=== PATIENT | female | born 1945 | race African-American/Black ===

== ENCOUNTER 2016-12-12 04:45 | Inpatient (IN) | payer MEDICARE, MEDICAID ==
[~2016-12-12] VITALS: Ht 160 cm; Wt 114.8 kg
[~2016-12-12 04:45] MED LIST: ALBU6.7H INH; ALPR0.5T6 PO; AMBR5TAB3 PO; BENA20TA3 PO; BRIM.2 BOTHEYE; BRIM10DR2 BOTHEYE; FERR-63 PO; FLUT1DIS3 INH; FURO-151 PO; INSASP; INSU100I19 SUBCUT; IPRA3AMP INH; LEVO100T9 PO; MECL-109 PO; MONT10TA21 PO; OMEP40CA34 PO; PRAV20TA57 PO; SPIR25TA4 PO; TIMO15DR12 BOTHEYE
[2016-12-12] MEDS ORDERED: ONDANSETRON HCL 4MG/2ML VIAL IV STA (04:56)
[2016-12-12] MEDS ORDERED: MORPHINE SULFATE 4 MG/ML CPJ (NOT FOR IM USE) IV STA (04:56)
[2016-12-12] MEDS ORDERED: IPRATROPIUM BROMIDE (0.02%) 0.5MG/2.5ML NEB HHN STA (04:56)
[2016-12-12] MEDS ORDERED: METHYLPREDNISOLONE SOD SUCC 125 MG/2 ML VIAL IV STA (04:56)
[2016-12-12] MEDS ORDERED: ALBUTEROL (0.083%) 2.5MG/3ML NEB HHN STA (04:56)
[2016-12-12] MEDS ORDERED: ACYCLOVIR INJ 400 MG in DEXT 5% WATER 100 ML IV ONE (05:00)
[2016-12-12] MEDS ORDERED: NITROGLYCERIN OINT 1GM/INCH UDPKT TD ONE (05:00)
[2016-12-12] MEDS ORDERED: ASPIRIN 81MG TABLET PO ONE (05:00)
[2016-12-12] MEDS ORDERED: MAGNESIUM 2 G PREMIX 50 ML IV ONE (05:00)
[2016-12-12 05:24] LABS: BG BASE EXCESS 4.5 mmol/L (-2.0-2.0); BG CARBOXYHEMOGLOBIN 0.3 % (0.5-1.5); BG DEOXYHEMOGLOBIN 7.9 % (0.0-5.0); BG FRACTION INSPIRED OXYGEN 36; BG HCO3 ACT 30.8 mmol/L (22.0-26.0); BG METHEMOGLOBIN 0.4 % (0.0-1.5); BG OXYHEMOGLOBIN 91.4 % (94.0-97.0); BG PH 7.366 (7.350-7.450); BG PO2 65.4 mmHg (75.0-100.0); BG SAMPLE SITE LEFT RADIAL; BG VENT MODE NASAL CANNULA
[2016-12-12 05:30] LABS: BASOPHILS % 0.2 % (0.0-2.0); EOSINOPHILS % 0.3 % (0.0-5.0); HEMATOCRIT. 28.5 % (36.0-48.0); HEMOGLOBIN. 9.1 g/dL (12.0-16.0); LYMPHOCYTES % 7.1 % (20.0-50.0); MEAN CORPUSCULAR HEMOGLOBIN 27.7 pg (28.0-32.0); MEAN PLATELET VOLUME 8.2 fl (7.4-10.4); MONOCYTES % 10.6 % (2.0-8.0); NEUTROPHILS % 81.8 % (40.0-76.0); PLATELET 230 x1000/uL (130-400); RED BLOOD CELL COUNT 3.28 mill/uL (4.2-5.4); RED CELL DISTRIBUTION WIDTH 15.7 % (11.6-14.6)
[2016-12-12] MEDS ORDERED: FUROSEMIDE 40MG/4ML VIAL IVP NR (05:30)
[2016-12-12 05:53] LABS: CARBON DIOXIDE 32 mEq/L (21-32); CHLORIDE 102 mEq/L (98-107); ETHANOL BLOOD < 10 mg/dL; TROPONIN I 0.07 ng/mL (0.00-0.04)
[2016-12-12 06:16] LABS: DIGOXIN 0.1 ng/mL (0.9-2.0)
[2016-12-12 06:22] LABS: D-DIMER 0.33 mg/L FEU (<0.50); PARTIAL THROMBOPLASTIN TIME 26.1 sec (24.0-34.0); PROTHROMBIN TIME 10.9 sec
[2016-12-12 08:30] VITALS: BP 103/60
[2016-12-12 09:18] VITALS: BP 103/63
[2016-12-12] MEDS ORDERED: ONDANSETRON HCL 4MG/2ML VIAL IV PRN (10:00)
[2016-12-12] MEDS ORDERED: GUAIFENESIN 200MG/10ML SUGAR FREE UDC PO PRN (10:00)
[2016-12-12] MEDS: BENAZEPRIL 20MG TABLET PO SCH (10:00)
[2016-12-12] MEDS ORDERED: CLONIDINE 0.1MG TABLET PO PRN (10:00)
[2016-12-12] MEDS ORDERED: IPRATROPIUM/ALBUTEROL 0.5-3(2.5)MG/3ML NEB HHN SCH (10:00)
[2016-12-12] MEDS ORDERED: ACETAMINOPHEN 325MG TABLET PO PRN (10:00)
[2016-12-12] MEDS ORDERED: DEXTROSE 50% WATER 50ML SYRINGE IV PRN (10:15)
[2016-12-12] MEDS: OMEPRAZOLE 20MG CAPSULE EXTENDED RELEASE PO SCH (11:10)
[2016-12-12] MEDS: FERROUS SULFATE 325MG TABLET PO SCH (11:10)
[2016-12-12] MEDS: CITALOPRAM HYDROBROMIDE 10MG TABLET PO SCH (11:10)
[2016-12-12] MEDS: APIXABAN 5 MG TABLET PO SCH ×2 (11:10→20:46)
[2016-12-12] MEDS: LEVOTHYROXINE SODIUM 100MCG TABLET PO SCH (11:10)
[2016-12-12] MEDS: SPIRONOLACTONE 25MG TABLET PO SCH (11:10)
[2016-12-12] MEDS: INSULIN DETEMIR UD 100 UNITS/ML SYR SUBCUT SCH (11:12)
[2016-12-12] MEDS: FUROSEMIDE 40MG/4ML VIAL IVP SCH (11:35)
[2016-12-12] MEDS: TIMOLOL MALEATE 0.5% OPHTH DROPS 5ML EACHEYE SCH (11:36)
[2016-12-12] MEDS: LIDOCAINE 5% PATCH TOP SCH (11:36)
[2016-12-12] MEDS: CEFTRIAXONE 1 G PREMIX 50 ML IV SCH (11:36)
[2016-12-12] MEDS: HYDROMORPHONE HCL/PF 2MG/ML CPJ IV PRN (11:37)
[2016-12-12] MEDS: BLOOD SUGAR DIAGNOSTIC STRIP TEST SCH ×3 (11:37→20:48)
[2016-12-12] MEDS: BRIMONIDINE 0.2% OPHTH DROPS 5ML BOTHEYE SCH (11:37)
[2016-12-12] MEDS: IPRATROPIUM/ALBUTEROL 0.5-3(2.5)MG/3ML NEB HHN SCH ×4 (11:52→23:45)
[2016-12-12 12:00] VITALS: BP 113/48
[2016-12-12] MEDS: INSULIN LISPRO 100 UNITS/ML SUBCUT SCH ×3 (12:15→20:47)
[2016-12-12] MEDS ORDERED: ALBUTEROL 6.7GM HFA INHALER INH SCH (13:00)
[2016-12-12] MEDS ORDERED: NON FORMULARY PATIENT HOME MED EA XX SCH (14:30)
[2016-12-12 14:43] LABS: TROPONIN I 0.06 ng/mL (0.00-0.04)
[2016-12-12] MEDS: LETAIRIS (AMBRISENTAN) 10MG TABLET PO SCH (16:13)
[2016-12-12 16:19] VITALS: BP 102/47
[2016-12-12 20:00] VITALS: BP 98/67
[2016-12-12] MEDS: MONTELUKAST SODIUM 10MG TABLET PO SCH (20:47)
[2016-12-12] MEDS ORDERED: ZOLPIDEM TARTRATE 5MG TABLET PO PRN (21:00)
[2016-12-13] VITALS: BP 140/67
[2016-12-13] MEDS: HYDROMORPHONE HCL/PF 2MG/ML CPJ IV PRN ×5 (00:08→19:44)
[2016-12-13] MEDS: IPRATROPIUM/ALBUTEROL 0.5-3(2.5)MG/3ML NEB HHN SCH ×5 (03:33→21:02)
[2016-12-13 04:00] VITALS: BP 105/71
[2016-12-13] MEDS: BLOOD SUGAR DIAGNOSTIC STRIP TEST SCH ×4 (06:24→21:13)
[2016-12-13] MEDS: OMEPRAZOLE 20MG CAPSULE EXTENDED RELEASE PO SCH (06:24)
[2016-12-13] MEDS: LEVOTHYROXINE SODIUM 100MCG TABLET PO SCH (06:24)
[2016-12-13] MEDS: INSULIN LISPRO 100 UNITS/ML SUBCUT SCH ×4 (06:46→21:00)
[2016-12-13 06:49] LABS: HEMATOCRIT. 26.2 % (36.0-48.0); HEMOGLOBIN. 8.2 g/dL (12.0-16.0); MEAN CORPUSCULAR HEMOGLOBIN 27.7 pg (28.0-32.0); MEAN CORPUSCULAR VOLUME 88.4 fL (81.0-99.0); MEAN PLATELET VOLUME 8.6 fl (7.4-10.4); PLATELET 222 x1000/uL (130-400); RED BLOOD CELL COUNT 2.97 mill/uL (4.2-5.4); RED CELL DISTRIBUTION WIDTH 15.8 % (11.6-14.6)
[2016-12-13 08:00] VITALS: BP 113/72
[2016-12-13] MEDS: BRIMONIDINE 0.2% OPHTH DROPS 5ML BOTHEYE SCH (08:36)
[2016-12-13] MEDS: TIMOLOL MALEATE 0.5% OPHTH DROPS 5ML EACHEYE SCH (08:37)
[2016-12-13] MEDS: SPIRONOLACTONE 25MG TABLET PO SCH (08:37)
[2016-12-13] MEDS: BENAZEPRIL 20MG TABLET PO SCH (08:38)
[2016-12-13] MEDS: FERROUS SULFATE 325MG TABLET PO SCH (08:38)
[2016-12-13] MEDS: LETAIRIS (AMBRISENTAN) 10MG TABLET PO SCH (08:40)
[2016-12-13] MEDS: FUROSEMIDE 40MG/4ML VIAL IVP SCH (08:41)
[2016-12-13] MEDS: LIDOCAINE 5% PATCH TOP SCH (08:53)
[2016-12-13] MEDS: APIXABAN 5 MG TABLET PO SCH ×2 (08:54→21:00)
[2016-12-13] MEDS ORDERED: NON FORMULARY PATIENT HOME MED EA PO SCH (09:00)
[2016-12-13] MEDS ORDERED: MEDICATION NOT ON FORMULARY EA (Ambrisentan (Letairis) 5 MG) PO SCH (09:00)
[2016-12-13 09:03] LABS: PLATELET ESTIMATE NORMAL
[2016-12-13] MEDS: CITALOPRAM HYDROBROMIDE 10MG TABLET PO SCH (09:13)
[2016-12-13 09:21] LABS: TOTAL IRON BINDING CAPACITY 356 ug/dL (250-450)
[2016-12-13] MEDS: INSULIN DETEMIR UD 100 UNITS/ML SYR SUBCUT SCH (09:42)
[2016-12-13] MEDS: CEFTRIAXONE 1 G PREMIX 50 ML IV SCH (11:48)
[2016-12-13 12:00] VITALS: BP 110/61
[2016-12-13 16:00] VITALS: BP 102/63
[2016-12-13 20:00] VITALS: BP 124/64
[2016-12-13] MEDS: MONTELUKAST SODIUM 10MG TABLET PO SCH (21:33)
[2016-12-14] VITALS: BP 117/89
[2016-12-14] MEDS: HYDROMORPHONE HCL/PF 2MG/ML CPJ IV PRN ×6 (00:15→21:56)
[2016-12-14] MEDS: IPRATROPIUM/ALBUTEROL 0.5-3(2.5)MG/3ML NEB HHN SCH ×6 (00:43→21:19)
[2016-12-14 04:00] VITALS: BP 107/61
[2016-12-14 06:10] LABS: BASOPHILS % 0.4 % (0.0-2.0); EOSINOPHILS % 0.5 % (0.0-5.0); HEMATOCRIT. 27.6 % (36.0-48.0); HEMOGLOBIN. 8.6 g/dL (12.0-16.0); LYMPHOCYTES % 12.5 % (20.0-50.0); MEAN CORPUSCULAR HEMOGLOBIN 27.6 pg (28.0-32.0); MEAN CORPUSCULAR VOLUME 88.3 fL (81.0-99.0); MEAN PLATELET VOLUME 8.6 fl (7.4-10.4); MONOCYTES % 8.8 % (2.0-8.0); NEUTROPHILS % 77.8 % (40.0-76.0); PLATELET 255 x1000/uL (130-400); RED BLOOD CELL COUNT 3.12 mill/uL (4.2-5.4); RED CELL DISTRIBUTION WIDTH 16.1 % (11.6-14.6)
[2016-12-14] MEDS: BLOOD SUGAR DIAGNOSTIC STRIP TEST SCH ×4 (06:23→20:50)
[2016-12-14] MEDS: INSULIN LISPRO 100 UNITS/ML SUBCUT SCH ×4 (06:24→20:51)
[2016-12-14] MEDS: LEVOTHYROXINE SODIUM 100MCG TABLET PO SCH (06:44)
[2016-12-14] MEDS: OMEPRAZOLE 20MG CAPSULE EXTENDED RELEASE PO SCH (06:44)
[2016-12-14 08:00] VITALS: BP 126/50
[2016-12-14] MEDS: FERROUS SULFATE 325MG TABLET PO SCH (08:48)
[2016-12-14] MEDS: SPIRONOLACTONE 25MG TABLET PO SCH (08:48)
[2016-12-14] MEDS: BENAZEPRIL 20MG TABLET PO SCH (08:49)
[2016-12-14] MEDS: CITALOPRAM HYDROBROMIDE 10MG TABLET PO SCH (08:49)
[2016-12-14] MEDS: LETAIRIS (AMBRISENTAN) 10MG TABLET PO SCH (08:51)
[2016-12-14] MEDS: TIMOLOL MALEATE 0.5% OPHTH DROPS 5ML EACHEYE SCH (08:51)
[2016-12-14] MEDS: BRIMONIDINE 0.2% OPHTH DROPS 5ML BOTHEYE SCH (08:51)
[2016-12-14] MEDS: FUROSEMIDE 20MG/2ML VIAL IVP SCH (08:52)
[2016-12-14] MEDS: APIXABAN 5 MG TABLET PO SCH ×2 (08:52→21:21)
[2016-12-14] MEDS: LIDOCAINE 5% PATCH TOP SCH (08:53)
[2016-12-14] MEDS ORDERED: NITROGLYCERIN 0.4MG TABLET SL SL SCH (09:00)
[2016-12-14] MEDS ORDERED: NITROGLYCERIN 0.4MG TABLET SL SL PRN (09:00)
[2016-12-14] MEDS ORDERED: MAGNESIUM/ALUMINUM HYDROXIDE/SIMETHICONE 30ML UDC PO PRN (09:00)
[2016-12-14] MEDS: INSULIN DETEMIR UD 100 UNITS/ML SYR SUBCUT SCH (09:19)
[2016-12-14] MEDS: CEFTRIAXONE 1 G PREMIX 50 ML IV SCH (11:33)
[2016-12-14 12:00] VITALS: BP 106/41
[2016-12-14 15:48] VITALS: BP 115/59
[2016-12-14 20:00] VITALS: BP 117/67
[2016-12-14] MEDS: MONTELUKAST SODIUM 10MG TABLET PO SCH (21:21)
[2016-12-15] VITALS: BP_SYST 133; BP_SYST 137; BP_DIAS 71; BP_DIAS 80
[2016-12-15] MEDS: IPRATROPIUM/ALBUTEROL 0.5-3(2.5)MG/3ML NEB HHN SCH ×6 (00:26→21:04)
[2016-12-15 04:00] VITALS: BP 154/92
[2016-12-15] MEDS: INSULIN LISPRO 100 UNITS/ML SUBCUT SCH ×4 (06:27→21:00)
[2016-12-15] MEDS: BLOOD SUGAR DIAGNOSTIC STRIP TEST SCH ×4 (06:27→21:44)
[2016-12-15] MEDS: LEVOTHYROXINE SODIUM 100MCG TABLET PO SCH (06:44)
[2016-12-15 08:30] VITALS: BP 154/86
[2016-12-15] MEDS: LIDOCAINE 5% PATCH TOP SCH (09:08)
[2016-12-15] MEDS: SPIRONOLACTONE 25MG TABLET PO SCH (09:20)
[2016-12-15] MEDS: FAMOTIDINE 20MG TABLET PO SCH (09:20)
[2016-12-15] MEDS: BENAZEPRIL 20MG TABLET PO SCH (09:20)
[2016-12-15] MEDS: FERROUS SULFATE 325MG TABLET PO SCH (09:21)
[2016-12-15] MEDS: APIXABAN 5 MG TABLET PO SCH ×2 (09:21→21:38)
[2016-12-15] MEDS: LETAIRIS (AMBRISENTAN) 10MG TABLET PO SCH (09:21)
[2016-12-15] MEDS: TIMOLOL MALEATE 0.5% OPHTH DROPS 5ML EACHEYE SCH (09:22)
[2016-12-15] MEDS: BRIMONIDINE 0.2% OPHTH DROPS 5ML BOTHEYE SCH (09:22)
[2016-12-15] MEDS ORDERED: HYDROMORPHONE HCL/PF 2MG/ML CPJ IM PRN ×2 (11:15→11:30)
[2016-12-15 11:23] LABS: BASOPHILS % 0.6 % (0.0-2.0); EOSINOPHILS % 0.6 % (0.0-5.0); HEMATOCRIT. 30.5 % (36.0-48.0); HEMOGLOBIN. 9.6 g/dL (12.0-16.0); MEAN CORPUSCULAR HEMOGLOBIN 27.2 pg (28.0-32.0); MEAN CORPUSCULAR VOLUME 86.4 fL (81.0-99.0); MEAN PLATELET VOLUME 7.9 fl (7.4-10.4); MONOCYTES % 8.6 % (2.0-8.0); NEUTROPHILS % 80.2 % (40.0-76.0); PLATELET 305 x1000/uL (130-400); RED BLOOD CELL COUNT 3.53 mill/uL (4.2-5.4); RED CELL DISTRIBUTION WIDTH 15.9 % (11.6-14.6)
[2016-12-15] MEDS: CITALOPRAM HYDROBROMIDE 10MG TABLET PO SCH (11:40)
[2016-12-15] MEDS: INSULIN DETEMIR UD 100 UNITS/ML SYR SUBCUT SCH (11:56)
[2016-12-15 11:58] LABS: CARBON DIOXIDE 32 mEq/L (21-32); CHLORIDE 101 mEq/L (98-107)
[2016-12-15 12:15] VITALS: BP 165/99
[2016-12-15] MEDS: HYDROMORPHONE HCL/PF 2MG/ML CPJ IV PRN ×3 (15:09→23:27)
[2016-12-15] MEDS: FUROSEMIDE 20MG/2ML VIAL IVP SCH (15:11)
[2016-12-15] MEDS: CEFTRIAXONE 1 G PREMIX 50 ML IV SCH (15:12)
[2016-12-15 16:15] VITALS: BP 141/76
[2016-12-15 20:00] VITALS: BP 127/73
[2016-12-15] MEDS ORDERED: SORBITOL 70% SOLN 30ML PO NR (21:00)
[2016-12-15] MEDS: MONTELUKAST SODIUM 10MG TABLET PO SCH (21:38)
[2016-12-16] VITALS: BP 133/77
[2016-12-16] MEDS: IPRATROPIUM/ALBUTEROL 0.5-3(2.5)MG/3ML NEB HHN SCH ×5 (01:14→20:53)
[2016-12-16 04:00] VITALS: BP 137/74
[2016-12-16] MEDS ORDERED: SORBITOL 70% SOLN 30ML PO NR (06:00)
[2016-12-16] MEDS: HYDROMORPHONE HCL/PF 2MG/ML CPJ IV PRN ×3 (06:10→21:02)
[2016-12-16] MEDS: LEVOTHYROXINE SODIUM 100MCG TABLET PO SCH (06:11)
[2016-12-16] MEDS: BLOOD SUGAR DIAGNOSTIC STRIP TEST SCH ×4 (06:11→21:04)
[2016-12-16] MEDS: INSULIN LISPRO 100 UNITS/ML SUBCUT SCH ×4 (06:19→21:00)
[2016-12-16 08:00] VITALS: BP 132/66
[2016-12-16] MEDS ORDERED: NA PHOS,M-B/NA PHOS,DI-BA ENEMA 118ML PR NR (09:00)
[2016-12-16] MEDS: APIXABAN 5 MG TABLET PO SCH ×2 (09:00→21:04)
[2016-12-16] MEDS: CITALOPRAM HYDROBROMIDE 10MG TABLET PO SCH (09:00)
[2016-12-16] MEDS: FAMOTIDINE 20MG TABLET PO SCH (09:00)
[2016-12-16] MEDS: FERROUS SULFATE 325MG TABLET PO SCH (09:00)
[2016-12-16] MEDS: LETAIRIS (AMBRISENTAN) 10MG TABLET PO SCH (09:00)
[2016-12-16] MEDS: BENAZEPRIL 20MG TABLET PO SCH (09:00)
[2016-12-16] MEDS: SPIRONOLACTONE 25MG TABLET PO SCH (09:00)
[2016-12-16] MEDS: LIDOCAINE 5% PATCH TOP SCH (09:49)
[2016-12-16] MEDS: BRIMONIDINE 0.2% OPHTH DROPS 5ML BOTHEYE SCH (09:50)
[2016-12-16] MEDS: FUROSEMIDE 20MG/2ML VIAL IVP SCH (09:50)
[2016-12-16] MEDS: TIMOLOL MALEATE 0.5% OPHTH DROPS 5ML EACHEYE SCH (09:50)
[2016-12-16] MEDS: INSULIN DETEMIR UD 100 UNITS/ML SYR SUBCUT SCH (10:00)
[2016-12-16 12:05] VITALS: BP 124/56
[2016-12-16] MEDS: CEFTRIAXONE 1 G PREMIX 50 ML IV SCH (12:07)
[2016-12-16] MEDS ORDERED: SIMETHICONE 40 MG/0.6 ML 30ML ONE ×2 (13:13→16:57)
[2016-12-16] MEDS ORDERED: SODIUM CHLORIDE 0.9% 10ML VIAL ONE (13:13)
[2016-12-16] MEDS ORDERED: MIDAZOLAM HCL 5 MG/5 ML VIAL IV PRN (16:57)
[2016-12-16] MEDS ORDERED: MIDAZOLAM HCL 5 MG/5 ML VIAL ONE (16:57)
[2016-12-16] MEDS ORDERED: FENTANYL CITRATE/PF 50MCG/ML 2ML VIAL ONE (16:57)
[2016-12-16] MEDS ORDERED: FENTANYL CITRATE/PF 50MCG/ML 2ML VIAL IV PRN (16:59)
[2016-12-16 20:00] VITALS: BP 133/68
[2016-12-16] MEDS: MONTELUKAST SODIUM 10MG TABLET PO SCH (21:04)
[2016-12-17] VITALS: BP 143/91
[2016-12-17] MEDS: IPRATROPIUM/ALBUTEROL 0.5-3(2.5)MG/3ML NEB HHN SCH ×4 (00:23→11:50)
[2016-12-17 04:00] VITALS: BP 147/95
[2016-12-17] MEDS: LEVOTHYROXINE SODIUM 100MCG TABLET PO SCH (06:04)
[2016-12-17] MEDS: BLOOD SUGAR DIAGNOSTIC STRIP TEST SCH ×2 (06:04→11:45)
[2016-12-17] MEDS: HYDROMORPHONE HCL/PF 2MG/ML CPJ IV PRN ×2 (06:10→10:42)
[2016-12-17] MEDS: INSULIN LISPRO 100 UNITS/ML SUBCUT SCH ×2 (06:16→12:15)
[2016-12-17] MEDS: FAMOTIDINE 20MG TABLET PO SCH (09:05)
[2016-12-17] MEDS: FUROSEMIDE 20MG/2ML VIAL IVP SCH (09:05)
[2016-12-17] MEDS: APIXABAN 5 MG TABLET PO SCH (09:05)
[2016-12-17] MEDS: BENAZEPRIL 20MG TABLET PO SCH (09:05)
[2016-12-17] MEDS: SPIRONOLACTONE 25MG TABLET PO SCH (09:06)
[2016-12-17] MEDS: LIDOCAINE 5% PATCH TOP SCH (09:07)
[2016-12-17] MEDS: TIMOLOL MALEATE 0.5% OPHTH DROPS 5ML EACHEYE SCH (09:07)
[2016-12-17] MEDS: LETAIRIS (AMBRISENTAN) 10MG TABLET PO SCH (09:07)
[2016-12-17] MEDS: BRIMONIDINE 0.2% OPHTH DROPS 5ML BOTHEYE SCH (09:07)
[2016-12-17] MEDS: FERROUS SULFATE 325MG TABLET PO SCH (09:08)
[2016-12-17] MEDS: INSULIN DETEMIR UD 100 UNITS/ML SYR SUBCUT SCH (10:23)
[2016-12-17 10:24] LABS: BASOPHILS % 0.3 % (0.0-2.0); EOSINOPHILS % 1.3 % (0.0-5.0); HEMATOCRIT. 26.5 % (36.0-48.0); HEMOGLOBIN. 8.5 g/dL (12.0-16.0); LYMPHOCYTES % 10.9 % (20.0-50.0); MEAN CORPUSCULAR HEMOGLOBIN 27.5 pg (28.0-32.0); MEAN PLATELET VOLUME 8.1 fl (7.4-10.4); MONOCYTES % 9.2 % (2.0-8.0); NEUTROPHILS % 78.3 % (40.0-76.0); PLATELET 240 x1000/uL (130-400); RED BLOOD CELL COUNT 3.08 mill/uL (4.2-5.4); RED CELL DISTRIBUTION WIDTH 15.8 % (11.6-14.6)
[2016-12-17 10:31] LABS: CHLORIDE 106 mEq/L (98-107)
[2016-12-17 10:37] LABS: CARBON DIOXIDE 29 mEq/L (21-32)
[2016-12-17] MEDS: CITALOPRAM HYDROBROMIDE 10MG TABLET PO SCH (10:42)
[2016-12-17] MEDS: CEFTRIAXONE 1 G PREMIX 50 ML IV SCH (13:18)
[2016-12-17 15:33] VITALS: BP 132/82
[2016-12-17] MEDS ORDERED: APIXABAN 5 MG TABLET PO SCH (18:00)
[2016-12-17] MEDS ORDERED: FAMOTIDINE 20MG TABLET PO SCH (21:00)
== END 2016-12-17 16:00 | disposition home or self-care (01) | DRG 291 ==
LOC: ER 04:45 → 5WST 05:10
PROVIDERS: ADMIT Internal Medicine Geriatric Medicine; ATTEND Internal Medicine Geriatric Medicine
PROC: 5A09457 Assistance with Respiratory Ventilation, 24-96 Consecutive Hours, Continuous Positive Airway Pressure (ICD-10-PCS; 2016-12-13)
PROC: 02HV33Z Insertion of Infusion Device into Superior Vena Cava, Percutaneous Approach (ICD-10-PCS; 2016-12-15)
PROC: B5181ZA Fluoroscopy of Superior Vena Cava using Low Osmolar Contrast, Guidance (ICD-10-PCS; 2016-12-15)
PROC: B548ZZA Ultrasonography of Superior Vena Cava, Guidance (ICD-10-PCS; 2016-12-15)
PROC: 0DBP8ZZ Excision of Rectum, Via Natural or Artificial Opening Endoscopic (ICD-10-PCS; 2016-12-16)
PROC: 0DBL8ZZ Excision of Transverse Colon, Via Natural or Artificial Opening Endoscopic (ICD-10-PCS; 2016-12-16)
PROC: 0DB68ZX Excision of Stomach, Via Natural or Artificial Opening Endoscopic, Diagnostic (ICD-10-PCS; principal; 2016-12-16 17:00)
DX: I13.0 Hypertensive heart and chronic kidney disease with heart failure and stage 1 through stage 4 chronic kidney disease, or unspecified chronic kidney disease (principal); I50.23 Acute on chronic systolic (congestive) heart failure; N17.0 Acute kidney failure with tubular necrosis; J96.22 Acute and chronic respiratory failure with hypercapnia; E44.1 Mild protein-calorie malnutrition; J44.1 Chronic obstructive pulmonary disease with (acute) exacerbation; B02.29 Other postherpetic nervous system involvement; D68.59 Other primary thrombophilia; Z68.41 Body mass index [BMI] 40.0-44.9, adult; I42.9 Cardiomyopathy, unspecified; I48.2 Chronic atrial fibrillation; D12.3 Benign neoplasm of transverse colon; D50.9 Iron deficiency anemia, unspecified; D72.829 Elevated white blood cell count, unspecified; E03.9 Hypothyroidism, unspecified; E11.22 Type 2 diabetes mellitus with diabetic chronic kidney disease; E66.01 Morbid (severe) obesity due to excess calories; E78.5 Hyperlipidemia, unspecified; F32.9 Major depressive disorder, single episode, unspecified; F41.1 Generalized anxiety disorder; G47.33 Obstructive sleep apnea (adult) (pediatric); Z98.891 History of uterine scar from previous surgery; G89.4 Chronic pain syndrome; I27.2 Other secondary pulmonary hypertension; K29.60 Other gastritis without bleeding; I87.2 Venous insufficiency (chronic) (peripheral); K22.2 Esophageal obstruction; K44.9 Diaphragmatic hernia without obstruction or gangrene; K57.30 Diverticulosis of large intestine without perforation or abscess without bleeding; K62.1 Rectal polyp; K64.8 Other hemorrhoids; M19.90 Unspecified osteoarthritis, unspecified site; N18.9 Chronic kidney disease, unspecified; Z86.010 Personal history of colon polyps; Z87.19 Personal history of other diseases of the digestive system; Z87.440 Personal history of urinary (tract) infections; Z87.891 Personal history of nicotine dependence; Z99.2 Dependence on renal dialysis; Z99.81 Dependence on supplemental oxygen; Z79.899 Other long term (current) drug therapy
CPT/HCPCS: 36415; 36569; 36600; 71010; 76937; 77001; 78582; 80048; 80053; 80162; 82270; 82375; 82553; 82805; 82962; 83036; 83540; 83550; 83605; 83690; 83880; 84443; 84484; 85025; 85379; 85610; 85730; 87040; 88305; 88312; 88313; 93005; 93306; 93970; 94640; 94660; 96365; 96366; 96375; 97163; 99285; A4216; A9558; C1725; G0482; J0133; J0696; J1170; J1815; J1940; J2250; J2270; J2405; J2930; J3010; J3475; J7030; J7040; J7060; J7611; J7620

== ENCOUNTER 2017-01-13 04:34 | Inpatient (IN) | payer MEDICARE, MEDICAID ==
[2017-01-13] VITALS (36 sets, daily range): BP systolic 108–175; BP diastolic 54–86
[~2017-01-13] VITALS: Ht 160 cm; Wt 112.5 kg
[~2017-01-13 04:34] MED LIST changes: -IPRA3AMP INH; +IPRA3AMP9 INH
[2017-01-13] MEDS ORDERED: ONDANSETRON HCL 4MG/2ML VIAL IV STA (04:46)
[2017-01-13] MEDS ORDERED: SUCCINYLCHOLINE CHLORIDE 200MG/10ML VIAL IV ONE ×2 (05:00)
[2017-01-13] MEDS ORDERED: PROPOFOL 10MG/ML 100ML 100 ML IV ONE (05:00)
[2017-01-13] MEDS ORDERED: ETOMIDATE 2MG/ML 10ML VIAL IV ONE ×2 (05:00)
[2017-01-13 05:25] LABS: BG CARBOXYHEMOGLOBIN 0.9 % (0.5-1.5); BG DEOXYHEMOGLOBIN 0.9 % (0.0-5.0); BG FRACTION INSPIRED OXYGEN 100; BG HCO3 ACT 26.7 mmol/L (22.0-26.0); BG METHEMOGLOBIN 0.3 % (0.0-1.5); BG OXYGEN SATURATION 99.1 % (92.0-98.5); BG OXYHEMOGLOBIN 97.9 % (94.0-97.0); BG PCO2 75.4 mmHg (35.0-45.0); BG PH 7.167 (7.350-7.450); BG PO2 178.1 mmHg (75.0-100.0); BG SAMPLE SITE RIGHT RADIAL; BG TIDAL VOLUME(mL) 500 mL; BG VENT MODE VENT - A/C; BG VENT RATE 14 set
[2017-01-13 05:30] LABS: PROTHROMBIN TIME 10.7 sec (9.4-11.6)
[2017-01-13 05:40] LABS: CARBON DIOXIDE 29 mEq/L (21-32); CHLORIDE 107 mEq/L (98-107); TROPONIN I 0.05 ng/mL (0.00-0.04)
[2017-01-13 05:41] LABS: HEMATOCRIT. 36.5 % (36.0-48.0); HEMOGLOBIN. 10.8 g/dL (12.0-16.0); MEAN CORPUSCULAR HEMOGLOBIN 27.1 pg (28.0-32.0); MEAN PLATELET VOLUME 8.2 fl (7.4-10.4); PLATELET 345 x1000/uL (130-400); RED BLOOD CELL COUNT 3.97 mill/uL (4.2-5.4); RED CELL DISTRIBUTION WIDTH 18.5 % (11.6-14.6)
[2017-01-13] MEDS ORDERED: FUROSEMIDE 40MG/4ML VIAL IVP ONE (05:45)
[2017-01-13 06:21] LABS: PLATELET ESTIMATE NORMAL
[2017-01-13] MEDS ORDERED: CALCIUM CHLORIDE 1GM/10ML SYR IV ONE (06:30)
[2017-01-13] MEDS ORDERED: SODIUM BICARBONATE 8.4% 1 MEQ/ML 50ML SYR IV ONE (06:30)
[2017-01-13] MEDS ORDERED: DEXTROSE 50% WATER 50ML SYRINGE IV ONE (06:30)
[2017-01-13] MEDS ORDERED: INSULIN REGULAR (HUMULIN R) 300UNITS/3ML IV ONE (06:30)
[2017-01-13] MEDS ORDERED: ALBUTEROL (0.083%) 2.5MG/3ML NEB HHN ONE (06:30)
[2017-01-13] MEDS ORDERED: SODIUM POLYSTYRENE SULFONATE 15 G/60 ML BOT NG SCH (10:15)
[2017-01-13] MEDS ORDERED: NON FORMULARY PATIENT HOME MED EA XX SCH (10:15)
[2017-01-13] MEDS ORDERED: GUAIFENESIN 200MG/10ML SUGAR FREE UDC PO PRN (10:15)
[2017-01-13] MEDS ORDERED: FUROSEMIDE 40MG/4ML VIAL IVP SCH (10:15)
[2017-01-13] MEDS ORDERED: ACETAMINOPHEN 650MG SUPP PR PRN (10:15)
[2017-01-13] MEDS ORDERED: HYDROMORPHONE HCL/PF 2MG/ML CPJ IV PRN (10:15)
[2017-01-13] MEDS ORDERED: IPRATROPIUM/ALBUTEROL 0.5-3(2.5)MG/3ML NEB HHN SCH (10:15)
[2017-01-13] MEDS ORDERED: ONDANSETRON HCL 4MG/2ML VIAL IV PRN (10:15)
[2017-01-13] MEDS ORDERED: IPRATROPIUM/ALBUTEROL 0.5-3(2.5)MG/3ML NEB HHN PRN (11:00)
[2017-01-13] MEDS ORDERED: LEVOTHYROXINE SODIUM 100MCG TABLET PO SCH (11:00)
[2017-01-13 11:27] LABS: T4 FREE 1.08 ng/dL (0.76-1.46)
[2017-01-13 11:39] LABS: BG BASE EXCESS 2.7 mmol/L (-2.0-2.0); BG CARBOXYHEMOGLOBIN 0.3 % (0.5-1.5); BG DEOXYHEMOGLOBIN 3.1 % (0.0-5.0); BG FRACTION INSPIRED OXYGEN 60; BG METHEMOGLOBIN 0.2 % (0.0-1.5); BG OXYGEN SATURATION 96.9 % (92.0-98.5); BG OXYHEMOGLOBIN 96.4 % (94.0-97.0); BG PCO2 40.3 mmHg (35.0-45.0); BG PH 7.444 (7.350-7.450); BG PO2 86.5 mmHg (75.0-100.0); BG SAMPLE SITE RIGHT RADIAL; BG TIDAL VOLUME(mL) 500 mL; BG TOTAL HEMOGLOBIN 10.5 g/dL (12.0-18.0); BG VENT MODE VENT - A/C; BG VENT RATE 18 set
[2017-01-13] MEDS ORDERED: VANCOMYCIN 1500MG in DEXTROSE 5% WATER 250ML IV SCH (12:00)
[2017-01-13] MEDS: MORPHINE SULFATE 2 MG/ML CPJ (NOT FOR IM USE) IV PRN (12:37)
[2017-01-13] MEDS: PIPERACILLIN/TAZ 3.375G PREMIX 50 ML IV SCH ×2 (12:37→20:03)
[2017-01-13] MEDS: BUDESONIDE 0.5MG/2ML NEB HHN SCH (12:42)
[2017-01-13] MEDS: BENAZEPRIL 20MG TABLET PO SCH (14:00)
[2017-01-13] MEDS: METHYLPREDNISOLONE SOD SUCC 125 MG/2 ML VIAL IV SCH ×2 (14:01→22:27)
[2017-01-13] MEDS: TIMOLOL MALEATE 0.5% OPHTH DROPS 5ML EACHEYE SCH (14:01)
[2017-01-13] MEDS: BRIMONIDINE 0.2% OPHTH DROPS 5ML BOTHEYE SCH (14:01)
[2017-01-13] MEDS ORDERED: DEXTROSE 50% WATER 50ML SYRINGE IV PRN (15:15)
[2017-01-13 15:42] LABS: CREATINE KINASE MB FRACTION < 0.5 ng/mL (0.5-3.6); TROPONIN I 0.07 ng/mL (0.00-0.04)
[2017-01-13] MEDS ORDERED: INSULIN LISPRO 100 UNITS/ML SUBCUT SCH (17:00)
[2017-01-13] MEDS: APIXABAN 5 MG TABLET PO SCH (17:09)
[2017-01-13] MEDS: BLOOD SUGAR DIAGNOSTIC STRIP TEST SCH ×2 (17:38→23:34)
[2017-01-13] MEDS: INSULIN LISPRO 100 UNITS/ML SUBCUT SCH ×2 (17:39→23:36)
[2017-01-13] MEDS: PROPOFOL 10MG/ML 100ML 100 ML IV PRN (19:03)
[2017-01-13] MEDS: IPRATROPIUM/ALBUTEROL 0.5-3(2.5)MG/3ML NEB HHN SCH (21:53)
[2017-01-13 23:26] LABS: CREATINE KINASE MB FRACTION < 0.5 ng/mL (0.5-3.6); TROPONIN I 0.08 ng/mL (0.00-0.04)
[2017-01-13 23:32] LABS: CLARITY URINE CLEAR (CLEAR); COLOR URINE YELLOW (YELLOW); GLUCOSE URINE NEGATIVE (NEGATIVE); KETONES URINE NEGATIVE (NEGATIVE); LEUKOCYTE ESTERASE URINE NEGATIVE (NEGATIVE); NITRITE URINE NEGATIVE (NEGATIVE); OCCULT BLOOD URINE TRACE (NEGATIVE); PROTEIN URINE NEGATIVE (NEGATIVE); SPECIFIC GRAVITY URINE 1.015 (1.005-1.030); UROBILINOGEN URINE 0.2 E.U./dL (0.2-1.0)
[2017-01-14] VITALS (89 sets, daily range): BP systolic 96–168; BP diastolic 41–135
[2017-01-14] MEDS: MORPHINE SULFATE 2 MG/ML CPJ (NOT FOR IM USE) IV PRN ×4 (02:41→22:38)
[2017-01-14] MEDS: PIPERACILLIN/TAZ 3.375G PREMIX 50 ML IV SCH ×3 (03:06→22:14)
[2017-01-14] MEDS: BUDESONIDE 0.5MG/2ML NEB HHN SCH ×2 (03:40→13:25)
[2017-01-14] MEDS: IPRATROPIUM/ALBUTEROL 0.5-3(2.5)MG/3ML NEB HHN SCH ×4 (03:40→20:31)
[2017-01-14] MEDS: BLOOD SUGAR DIAGNOSTIC STRIP TEST SCH ×3 (05:01→18:12)
[2017-01-14] MEDS: APIXABAN 5 MG TABLET PO SCH ×2 (05:01→18:16)
[2017-01-14] MEDS: METHYLPREDNISOLONE SOD SUCC 125 MG/2 ML VIAL IV SCH ×3 (05:05→22:13)
[2017-01-14] MEDS: INSULIN LISPRO 100 UNITS/ML SUBCUT SCH ×3 (05:06→18:16)
[2017-01-14 05:36] LABS: HEMATOCRIT. 29.5 % (36.0-48.0); HEMOGLOBIN. 9.2 g/dL (12.0-16.0); MEAN CORPUSCULAR VOLUME 86.3 fL (81.0-99.0); MEAN PLATELET VOLUME 8.8 fl (7.4-10.4); PLATELET 249 x1000/uL (130-400); RED BLOOD CELL COUNT 3.42 mill/uL (4.2-5.4); RED CELL DISTRIBUTION WIDTH 16.9 % (11.6-14.6)
[2017-01-14 05:45] LABS: CARBON DIOXIDE 26 mEq/L (21-32); CHLORIDE 106 mEq/L (98-107); PHOSPHORUS 3.1 mg/dL (2.5-4.9)
[2017-01-14] MEDS: LEVOTHYROXINE SODIUM 100MCG TABLET PO SCH (05:50)
[2017-01-14 07:26] LABS: BG BASE EXCESS 0.8 mmol/L (-2.0-2.0); BG CARBOXYHEMOGLOBIN 0.7 % (0.5-1.5); BG DEOXYHEMOGLOBIN 2.6 % (0.0-5.0); BG HCO3 ACT 25.9 mmol/L (22.0-26.0); BG METHEMOGLOBIN 0.3 % (0.0-1.5); BG OXYGEN SATURATION 97.4 % (92.0-98.5); BG OXYHEMOGLOBIN 96.4 % (94.0-97.0); BG PCO2 43.7 mmHg (35.0-45.0); BG PH 7.391 (7.350-7.450); BG PO2 96.3 mmHg (75.0-100.0); BG SAMPLE SITE RIGHT RADIAL; BG TIDAL VOLUME(mL) 500 mL; BG TOTAL HEMOGLOBIN 10.7 g/dL (12.0-18.0); BG VENT MODE VENT - A/C; BG VENT RATE 18 set
[2017-01-14] MEDS ORDERED: MONTELUKAST SODIUM 10MG TABLET PO SCH (09:00)
[2017-01-14] MEDS: BENAZEPRIL 20MG TABLET PO SCH (09:40)
[2017-01-14] MEDS: FERROUS SULFATE 300MG/5ML UDC NG SCH (09:40)
[2017-01-14] MEDS: FUROSEMIDE 40MG/4ML VIAL IVP SCH (09:40)
[2017-01-14] MEDS: PANTOPRAZOLE SODIUM 40 MG/VIAL IV SCH (09:40)
[2017-01-14] MEDS: BRIMONIDINE 0.2% OPHTH DROPS 5ML BOTHEYE SCH (09:41)
[2017-01-14] MEDS: TIMOLOL MALEATE 0.5% OPHTH DROPS 5ML EACHEYE SCH (09:41)
[2017-01-14] MEDS: PROPOFOL 10MG/ML 100ML 100 ML IV PRN ×2 (10:08→21:35)
[2017-01-14 12:25] LABS: PLATELET ESTIMATE NORMAL
[2017-01-14] MEDS: LIDOCAINE 5% PATCH TOP SCH (12:27)
[2017-01-14] MEDS: VANCOMYCIN 1 G PREMIX 200 ML IV SCH (15:32)
[2017-01-14 16:23] LABS: BG BASE EXCESS 3.8 mmol/L (-2.0-2.0); BG CARBOXYHEMOGLOBIN 0.1 % (0.5-1.5); BG DEOXYHEMOGLOBIN 4.3 % (0.0-5.0); BG FRACTION INSPIRED OXYGEN 50; BG HCO3 ACT 28.6 mmol/L (22.0-26.0); BG METHEMOGLOBIN 0.1 % (0.0-1.5); BG OXYGEN SATURATION 95.7 % (92.0-98.5); BG OXYHEMOGLOBIN 95.5 % (94.0-97.0); BG PCO2 43.8 mmHg (35.0-45.0); BG PH 7.432 (7.350-7.450); BG PO2 81.9 mmHg (75.0-100.0); BG SAMPLE SITE LEFT BRACHIAL; BG TIDAL VOLUME(mL) 500 mL; BG VENT MODE VENT - A/C; BG VENT RATE 18 set
[2017-01-14] MEDS: LORAZEPAM 2MG/ML CPJ IV PRN (19:49)
[2017-01-15] VITALS (86 sets, daily range): BP systolic 71–184; BP diastolic 55–133
[2017-01-15] MEDS: BLOOD SUGAR DIAGNOSTIC STRIP TEST SCH ×4 (00:19→17:55)
[2017-01-15] MEDS: INSULIN LISPRO 100 UNITS/ML SUBCUT SCH ×4 (00:23→18:24)
[2017-01-15] MEDS: IPRATROPIUM/ALBUTEROL 0.5-3(2.5)MG/3ML NEB HHN SCH ×4 (01:47→20:41)
[2017-01-15] MEDS: BUDESONIDE 0.5MG/2ML NEB HHN SCH ×2 (01:48→13:25)
[2017-01-15] MEDS: MORPHINE SULFATE 2 MG/ML CPJ (NOT FOR IM USE) IV PRN ×4 (03:28→23:39)
[2017-01-15] MEDS: PROPOFOL 10MG/ML 100ML 100 ML IV PRN (04:32)
[2017-01-15] MEDS: APIXABAN 5 MG TABLET PO SCH ×2 (05:15→18:24)
[2017-01-15] MEDS: LEVOTHYROXINE SODIUM 100MCG TABLET PO SCH (05:15)
[2017-01-15] MEDS: METHYLPREDNISOLONE SOD SUCC 125 MG/2 ML VIAL IV SCH ×3 (05:15→21:39)
[2017-01-15] MEDS: PIPERACILLIN/TAZ 3.375G PREMIX 50 ML IV SCH ×3 (05:16→21:39)
[2017-01-15 05:18] LABS: HEMATOCRIT. 28.9 % (36.0-48.0); HEMOGLOBIN. 9.1 g/dL (12.0-16.0); MEAN CORPUSCULAR HEMOGLOBIN 27.2 pg (28.0-32.0); MEAN CORPUSCULAR VOLUME 86.2 fL (81.0-99.0); MEAN PLATELET VOLUME 8.7 fl (7.4-10.4); PLATELET 255 x1000/uL (130-400); RED BLOOD CELL COUNT 3.36 mill/uL (4.2-5.4); RED CELL DISTRIBUTION WIDTH 17.7 % (11.6-14.6)
[2017-01-15] MEDS: LORAZEPAM 2MG/ML CPJ IV PRN ×3 (05:53→14:01)
[2017-01-15 06:04] LABS: PHOSPHORUS 3.8 mg/dL (2.5-4.9)
[2017-01-15 07:35] LABS: BG BASE EXCESS 2.3 mmol/L (-2.0-2.0); BG CARBOXYHEMOGLOBIN 0.2 % (0.5-1.5); BG DEOXYHEMOGLOBIN 6.7 % (0.0-5.0); BG FRACTION INSPIRED OXYGEN 40; BG HCO3 ACT 26.6 mmol/L (22.0-26.0); BG METHEMOGLOBIN 0.2 % (0.0-1.5); BG OXYGEN SATURATION 93.3 % (92.0-98.5); BG OXYHEMOGLOBIN 92.9 % (94.0-97.0); BG PCO2 40.4 mmHg (35.0-45.0); BG PH 7.437 (7.350-7.450); BG PO2 71.2 mmHg (75.0-100.0); BG SAMPLE SITE LEFT RADIAL; BG TIDAL VOLUME(mL) 500 mL; BG TOTAL HEMOGLOBIN 10.2 g/dL (12.0-18.0); BG VENT MODE VENT - A/C; BG VENT RATE 18 set
[2017-01-15] MEDS ORDERED: LIDOCAINE HCL/PF 1% 2ML VIAL ONE (09:07)
[2017-01-15] MEDS: FUROSEMIDE 40MG/4ML VIAL IVP SCH (09:19)
[2017-01-15] MEDS: PANTOPRAZOLE SODIUM 40 MG/VIAL IV SCH (09:19)
[2017-01-15] MEDS: BRIMONIDINE 0.2% OPHTH DROPS 5ML BOTHEYE SCH (09:20)
[2017-01-15] MEDS: BENAZEPRIL 20MG TABLET PO SCH (09:20)
[2017-01-15] MEDS: TIMOLOL MALEATE 0.5% OPHTH DROPS 5ML EACHEYE SCH (09:20)
[2017-01-15] MEDS: FERROUS SULFATE 300MG/5ML UDC NG SCH (09:20)
[2017-01-15] MEDS: LIDOCAINE 5% PATCH TOP SCH (09:21)
[2017-01-15] MEDS: POTASSIUM CHLORIDE 20MEQ/PACKET NG SCH (09:25)
[2017-01-15 10:28] LABS: PLATELET ESTIMATE NORMAL
[2017-01-15 13:13] LABS: BG BASE EXCESS 6.7 mmol/L (-2.0-2.0); BG CARBOXYHEMOGLOBIN 0.1 % (0.5-1.5); BG DEOXYHEMOGLOBIN 4.7 % (0.0-5.0); BG FRACTION INSPIRED OXYGEN 40; BG HCO3 ACT 32.5 mmol/L (22.0-26.0); BG METHEMOGLOBIN 0.4 % (0.0-1.5); BG OXYGEN SATURATION 95.3 % (92.0-98.5); BG OXYHEMOGLOBIN 94.8 % (94.0-97.0); BG PH 7.406 (7.350-7.450); BG PO2 81.3 mmHg (75.0-100.0); BG PRESSURE SUPPORT 6; BG SAMPLE SITE RIGHT RADIAL; BG VENT MODE VENT - CPAP
[2017-01-15] MEDS: VANCOMYCIN 1 G PREMIX 200 ML IV SCH (13:41)
[2017-01-16] VITALS (38 sets, daily range): BP systolic 139–171; BP diastolic 68–101
[2017-01-16] MEDS: BLOOD SUGAR DIAGNOSTIC STRIP TEST SCH ×4 (00:21→18:00)
[2017-01-16] MEDS: INSULIN LISPRO 100 UNITS/ML SUBCUT SCH ×4 (00:24→17:36)
[2017-01-16] MEDS: IPRATROPIUM/ALBUTEROL 0.5-3(2.5)MG/3ML NEB HHN SCH ×3 (02:12→19:52)
[2017-01-16] MEDS: BUDESONIDE 0.5MG/2ML NEB HHN SCH ×2 (02:12→09:06)
[2017-01-16] MEDS: METHYLPREDNISOLONE SOD SUCC 125 MG/2 ML VIAL IV SCH (05:14)
[2017-01-16] MEDS: PIPERACILLIN/TAZ 3.375G PREMIX 50 ML IV SCH ×3 (05:14→21:19)
[2017-01-16] MEDS: APIXABAN 5 MG TABLET PO SCH (05:14)
[2017-01-16] MEDS: LEVOTHYROXINE SODIUM 100MCG TABLET PO SCH (05:14)
[2017-01-16 05:27] LABS: HEMATOCRIT. 31.3 % (36.0-48.0); HEMOGLOBIN. 9.9 g/dL (12.0-16.0); MEAN CORPUSCULAR HEMOGLOBIN 27.2 pg (28.0-32.0); MEAN CORPUSCULAR VOLUME 85.7 fL (81.0-99.0); MEAN PLATELET VOLUME 8.6 fl (7.4-10.4); PLATELET 279 x1000/uL (130-400); RED BLOOD CELL COUNT 3.65 mill/uL (4.2-5.4); RED CELL DISTRIBUTION WIDTH 17.3 % (11.6-14.6)
[2017-01-16] MEDS: MORPHINE SULFATE 2 MG/ML CPJ (NOT FOR IM USE) IV PRN ×4 (05:51→22:08)
[2017-01-16] MEDS: LORAZEPAM 2MG/ML CPJ IV PRN ×3 (06:16→22:05)
[2017-01-16] MEDS: FUROSEMIDE 40MG/4ML VIAL IVP SCH (09:12)
[2017-01-16] MEDS: BENAZEPRIL 20MG TABLET PO SCH ×2 (09:12→21:20)
[2017-01-16] MEDS: FERROUS SULFATE 300MG/5ML UDC NG SCH (09:12)
[2017-01-16] MEDS: POTASSIUM CHLORIDE 20MEQ/PACKET NG SCH (09:13)
[2017-01-16] MEDS: LIDOCAINE 5% PATCH TOP SCH (09:14)
[2017-01-16] MEDS: TIMOLOL MALEATE 0.5% OPHTH DROPS 5ML EACHEYE SCH (09:15)
[2017-01-16] MEDS: BRIMONIDINE 0.2% OPHTH DROPS 5ML BOTHEYE SCH (09:15)
[2017-01-16] MEDS: PANTOPRAZOLE SODIUM 40 MG/VIAL IV SCH (09:15)
[2017-01-16] MEDS ORDERED: POTASSIUM CHLORIDE 20MEQ TABLET SR PO NR (10:00)
[2017-01-16 10:33] LABS: PLATELET ESTIMATE NORMAL
[2017-01-16] MEDS: VANCOMYCIN 1 G PREMIX 200 ML IV SCH (13:53)
[2017-01-16] MEDS: METHYLPREDNISOLONE SOD SUCC 40 MG/ML VIAL IV SCH (17:40)
[2017-01-17] VITALS (12 sets, daily range): BP systolic 145–170; BP diastolic 72–104
[2017-01-17] MEDS: BLOOD SUGAR DIAGNOSTIC STRIP TEST SCH ×5 (00:06→22:49)
[2017-01-17] MEDS: INSULIN LISPRO 100 UNITS/ML SUBCUT SCH ×5 (00:13→22:49)
[2017-01-17] MEDS: IPRATROPIUM/ALBUTEROL 0.5-3(2.5)MG/3ML NEB HHN SCH ×4 (01:50→20:14)
[2017-01-17] MEDS: METHYLPREDNISOLONE SOD SUCC 40 MG/ML VIAL IV SCH (05:08)
[2017-01-17] MEDS: PIPERACILLIN/TAZ 3.375G PREMIX 50 ML IV SCH ×3 (05:09→21:24)
[2017-01-17] MEDS: MORPHINE SULFATE 2 MG/ML CPJ (NOT FOR IM USE) IV PRN ×4 (05:15→22:55)
[2017-01-17 07:43] LABS: HEMATOCRIT. 30.4 % (36.0-48.0); HEMOGLOBIN. 9.4 g/dL (12.0-16.0); MEAN CORPUSCULAR HEMOGLOBIN 26.7 pg (28.0-32.0); MEAN PLATELET VOLUME 8.2 fl (7.4-10.4); PLATELET 253 x1000/uL (130-400); RED BLOOD CELL COUNT 3.54 mill/uL (4.2-5.4); RED CELL DISTRIBUTION WIDTH 16.7 % (11.6-14.6)
[2017-01-17 07:46] LABS: PHOSPHORUS 2.6 mg/dL (2.5-4.9)
[2017-01-17] MEDS: LEVOTHYROXINE SODIUM 100MCG TABLET PO SCH (07:57)
[2017-01-17] MEDS: VANCOMYCIN 1 G PREMIX 200 ML IV SCH (07:57)
[2017-01-17] MEDS: TIMOLOL MALEATE 0.5% OPHTH DROPS 5ML EACHEYE SCH (07:58)
[2017-01-17] MEDS: FUROSEMIDE 40MG/4ML VIAL IVP SCH (07:58)
[2017-01-17] MEDS: PANTOPRAZOLE SODIUM 40 MG/VIAL IV SCH (07:58)
[2017-01-17] MEDS: FERROUS SULFATE 300MG/5ML UDC NG SCH (07:58)
[2017-01-17] MEDS: BRIMONIDINE 0.2% OPHTH DROPS 5ML BOTHEYE SCH (07:58)
[2017-01-17] MEDS: POTASSIUM CHLORIDE 20MEQ/PACKET NG SCH (07:59)
[2017-01-17] MEDS: BENAZEPRIL 20MG TABLET PO SCH ×2 (08:00→20:54)
[2017-01-17] MEDS: LIDOCAINE 5% PATCH TOP SCH (08:00)
[2017-01-17] MEDS ORDERED: LETAIRIS PO (11:17)
[2017-01-17] MEDS ORDERED: AMLODIPINE 5MG TABLET PO SCH (11:30)
[2017-01-17] MEDS: LORAZEPAM 2MG/ML CPJ IV PRN ×3 (11:35→22:58)
[2017-01-17] MEDS: POTASSIUM CHLORIDE 20MEQ TABLET SR PO SCH (12:21)
[2017-01-17] MEDS: AMLODIPINE 5MG TABLET PO SCH ×2 (12:21→20:54)
[2017-01-17] MEDS ORDERED: NON FORMULARY PATIENT HOME MED EA XX SCH (13:45)
[2017-01-17 14:02] LABS: PLATELET ESTIMATE NORMAL
[2017-01-17] MEDS: BUDESONIDE 0.5MG/2ML NEB HHN SCH ×2 (15:29→20:14)
[2017-01-17] MEDS: LETAIRIS (AMBRISENTAN) 10MG TABLET PO SCH (15:33)
[2017-01-18] VITALS (11 sets, daily range): BP systolic 125–158; BP diastolic 47–89
[2017-01-18] MEDS: VANCOMYCIN 1 G PREMIX 200 ML IV SCH ×2 (00:29→18:03)
[2017-01-18] MEDS: IPRATROPIUM/ALBUTEROL 0.5-3(2.5)MG/3ML NEB HHN SCH ×4 (02:23→20:57)
[2017-01-18] MEDS: PIPERACILLIN/TAZ 3.375G PREMIX 50 ML IV SCH ×3 (05:16→21:47)
[2017-01-18] MEDS: INSULIN LISPRO 100 UNITS/ML SUBCUT SCH ×4 (05:44→23:41)
[2017-01-18] MEDS: BLOOD SUGAR DIAGNOSTIC STRIP TEST SCH ×4 (05:44→23:37)
[2017-01-18 06:43] LABS: INR 1.1; PROTHROMBIN TIME 11.4 sec (9.4-11.6)
[2017-01-18] MEDS: LORAZEPAM 2MG/ML CPJ IV PRN ×3 (06:52→18:03)
[2017-01-18] MEDS: MORPHINE SULFATE 2 MG/ML CPJ (NOT FOR IM USE) IV PRN ×3 (06:52→18:04)
[2017-01-18 07:29] LABS: BASOPHILS % 0.1 % (0.0-2.0); EOSINOPHILS % 0.4 % (0.0-5.0); HEMATOCRIT. 33.8 % (36.0-48.0); HEMOGLOBIN. 10.8 g/dL (12.0-16.0); LYMPHOCYTES % 10.7 % (20.0-50.0); MEAN CORPUSCULAR HEMOGLOBIN 27.4 pg (28.0-32.0); MONOCYTES % 11.6 % (2.0-8.0); NEUTROPHILS % 77.2 % (40.0-76.0); PLATELET 254 x1000/uL (130-400); RED BLOOD CELL COUNT 3.93 mill/uL (4.2-5.4); RED CELL DISTRIBUTION WIDTH 16.5 % (11.6-14.6)
[2017-01-18] MEDS: FERROUS SULFATE 300MG/5ML UDC NG SCH (08:37)
[2017-01-18] MEDS: PANTOPRAZOLE SODIUM 40 MG/VIAL IV SCH (08:37)
[2017-01-18] MEDS: FUROSEMIDE 40MG/4ML VIAL IVP SCH (08:37)
[2017-01-18] MEDS: POTASSIUM CHLORIDE 20MEQ TABLET SR PO SCH (08:38)
[2017-01-18] MEDS: LEVOTHYROXINE SODIUM 100MCG TABLET PO SCH (08:39)
[2017-01-18] MEDS: BRIMONIDINE 0.2% OPHTH DROPS 5ML BOTHEYE SCH (08:39)
[2017-01-18] MEDS: TIMOLOL MALEATE 0.5% OPHTH DROPS 5ML EACHEYE SCH (08:39)
[2017-01-18] MEDS: AMLODIPINE 5MG TABLET PO SCH ×2 (08:40→20:34)
[2017-01-18] MEDS: BENAZEPRIL 20MG TABLET PO SCH ×2 (08:40→20:34)
[2017-01-18] MEDS: LETAIRIS (AMBRISENTAN) 10MG TABLET PO SCH (08:40)
[2017-01-18] MEDS: LIDOCAINE 5% PATCH TOP SCH (08:52)
[2017-01-18] MEDS ORDERED: PREDNISONE 20MG TABLET PO SCH (09:00)
[2017-01-18] MEDS ORDERED: FENTANYL CITRATE/PF 50MCG/ML 2ML VIAL ONE (09:13)
[2017-01-18] MEDS ORDERED: MIDAZOLAM HCL 2 MG/2 ML VIAL ONE ×2 (09:13→10:07)
[2017-01-18] MEDS ORDERED: LIDOCAINE HCL 1% 20ML VIAL (Pyxis) INJ ONE (09:29)
[2017-01-18] MEDS: BUDESONIDE 0.5MG/2ML NEB HHN SCH ×3 (09:30→20:57)
[2017-01-18] MEDS ORDERED: INSULIN REGULAR (HUMULIN R) UD 100 UNITS/ML SYR SUBCUT NR (10:30)
[2017-01-18] MEDS ORDERED: POTASSIUM CHLORIDE 20MEQ TABLET SR PO SCH (12:30)
[2017-01-19] VITALS (9 sets, daily range): BP systolic 117–150; BP diastolic 61–77
[2017-01-19] MEDS: IPRATROPIUM/ALBUTEROL 0.5-3(2.5)MG/3ML NEB HHN SCH (01:04)
[2017-01-19] MEDS: LORAZEPAM 2MG/ML CPJ IV PRN ×2 (03:52→12:21)
[2017-01-19] MEDS: MORPHINE SULFATE 2 MG/ML CPJ (NOT FOR IM USE) IV PRN ×2 (03:53→12:19)
[2017-01-19] MEDS: PIPERACILLIN/TAZ 3.375G PREMIX 50 ML IV SCH (05:25)
[2017-01-19] MEDS: BLOOD SUGAR DIAGNOSTIC STRIP TEST SCH ×2 (06:11→11:56)
[2017-01-19 07:31] LABS: BASOPHILS % 0.1 % (0.0-2.0); EOSINOPHILS % 0.6 % (0.0-5.0); HEMATOCRIT. 32.7 % (36.0-48.0); HEMOGLOBIN. 10.5 g/dL (12.0-16.0); LYMPHOCYTES % 10.1 % (20.0-50.0); MEAN CORPUSCULAR HEMOGLOBIN 27.3 pg (28.0-32.0); MEAN CORPUSCULAR VOLUME 84.9 fL (81.0-99.0); MEAN PLATELET VOLUME 8.7 fl (7.4-10.4); MONOCYTES % 10.7 % (2.0-8.0); NEUTROPHILS % 78.5 % (40.0-76.0); PLATELET 263 x1000/uL (130-400); RED BLOOD CELL COUNT 3.86 mill/uL (4.2-5.4); RED CELL DISTRIBUTION WIDTH 16.8 % (11.6-14.6)
[2017-01-19] MEDS: BUDESONIDE 0.5MG/2ML NEB HHN SCH (08:02)
[2017-01-19] MEDS: FUROSEMIDE 40MG/4ML VIAL IVP SCH (08:35)
[2017-01-19] MEDS: POTASSIUM CHLORIDE 20MEQ TABLET SR PO SCH (08:35)
[2017-01-19] MEDS: PANTOPRAZOLE SODIUM 40 MG/VIAL IV SCH (08:35)
[2017-01-19] MEDS: BRIMONIDINE 0.2% OPHTH DROPS 5ML BOTHEYE SCH (08:35)
[2017-01-19] MEDS: TIMOLOL MALEATE 0.5% OPHTH DROPS 5ML EACHEYE SCH (08:35)
[2017-01-19] MEDS: FERROUS SULFATE 300MG/5ML UDC NG SCH (08:35)
[2017-01-19] MEDS: LEVOTHYROXINE SODIUM 100MCG TABLET PO SCH (08:35)
[2017-01-19] MEDS: AMLODIPINE 5MG TABLET PO SCH (08:36)
[2017-01-19] MEDS: LETAIRIS (AMBRISENTAN) 10MG TABLET PO SCH (08:36)
[2017-01-19] MEDS: BENAZEPRIL 20MG TABLET PO SCH (08:36)
[2017-01-19] MEDS: LIDOCAINE 5% PATCH TOP SCH (08:49)
[2017-01-19] MEDS: INSULIN LISPRO 100 UNITS/ML SUBCUT SCH ×2 (08:49→12:22)
[2017-01-19] MEDS: VANCOMYCIN 1 G PREMIX 200 ML IV SCH (12:20)
== END 2017-01-19 15:00 | disposition home health service (06) | DRG 208 ==
LOC: ER 04:34 → EDBEDREQ 04:57 → MICUNO 05:34 → EDBEDREQ 05:37 → ENRESERV 10:09 → 5EST 01-16 08:27
PROVIDERS: ADMIT Internal Medicine Geriatric Medicine; ATTEND Internal Medicine Geriatric Medicine
PROC: 5A1945Z Respiratory Ventilation, 24-96 Consecutive Hours (ICD-10-PCS; principal; 2017-01-13)
PROC: 0BH17EZ Insertion of Endotracheal Airway into Trachea, Via Natural or Artificial Opening (ICD-10-PCS; 2017-01-13)
PROC: 02HV33Z Insertion of Infusion Device into Superior Vena Cava, Percutaneous Approach (ICD-10-PCS; 2017-01-14)
PROC: B548ZZA Ultrasonography of Superior Vena Cava, Guidance (ICD-10-PCS; 2017-01-14)
PROC: 4A023N6 Measurement of Cardiac Sampling and Pressure, Right Heart, Percutaneous Approach (ICD-10-PCS; 2017-01-18)
DX: J96.22 Acute and chronic respiratory failure with hypercapnia (principal); N17.0 Acute kidney failure with tubular necrosis; J69.0 Pneumonitis due to inhalation of food and vomit; G92 Toxic encephalopathy; I50.23 Acute on chronic systolic (congestive) heart failure; D68.59 Other primary thrombophilia; E11.22 Type 2 diabetes mellitus with diabetic chronic kidney disease; J44.1 Chronic obstructive pulmonary disease with (acute) exacerbation; I13.0 Hypertensive heart and chronic kidney disease with heart failure and stage 1 through stage 4 chronic kidney disease, or unspecified chronic kidney disease; E46 Unspecified protein-calorie malnutrition; E87.1 Hypo-osmolality and hyponatremia; Z68.41 Body mass index [BMI] 40.0-44.9, adult; N18.3 Chronic kidney disease, stage 3 (moderate); D63.1 Anemia in chronic kidney disease; E03.9 Hypothyroidism, unspecified; E11.65 Type 2 diabetes mellitus with hyperglycemia; E66.01 Morbid (severe) obesity due to excess calories; E78.5 Hyperlipidemia, unspecified; E87.5 Hyperkalemia; E87.6 Hypokalemia; F41.1 Generalized anxiety disorder; G47.33 Obstructive sleep apnea (adult) (pediatric); H40.9 Unspecified glaucoma; I48.2 Chronic atrial fibrillation; I87.2 Venous insufficiency (chronic) (peripheral); Z96.1 Presence of intraocular lens; K44.9 Diaphragmatic hernia without obstruction or gangrene; M17.11 Unilateral primary osteoarthritis, right knee; Z79.01 Long term (current) use of anticoagulants; Z99.81 Dependence on supplemental oxygen; Z79.4 Long term (current) use of insulin; Z79.899 Other long term (current) drug therapy; Z86.010 Personal history of colon polyps; Z87.19 Personal history of other diseases of the digestive system; Z87.891 Personal history of nicotine dependence; Z98.49 Cataract extraction status, unspecified eye
CPT/HCPCS: 31500; 36415; 36569; 36600; 51702; 70450; 71010; 73560; 76937; 78580; 80048; 80053; 80202; 81001; 82270; 82375; 82553; 82805; 82962; 83036; 83735; 83880; 84100; 84439; 84443; 84478; 84481; 84484; 85025; 85610; 87040; 87086; 93005; 93306; 93451; 93970; 94002; 94003; 94640; 96374; 96375; 97163; 99291; C1725; C1893; C9113; J0330; J1644; J1815; J1940; J2060; J2250; J2270; J2405; J2543; J2704; J2920; J2930; J3010; J3370; J3490; J7040; J7050; J7060; J7512; J7620; J7626

== ENCOUNTER 2017-06-28 22:37 | Inpatient (IN) | payer MEDICARE, MEDICAID ==
[~2017-06-28] VITALS: Ht 167.6 cm; Wt 95.3 kg
[~2017-06-28 22:37] MED LIST changes: +BENA20TA10 PO; -BENA20TA3 PO; +LETAIRIS PO; -SPIR25TA4 PO; +SPIR25TA6 PO
[2017-06-28] MEDS ORDERED: ACETAMINOPHEN 325MG TABLET PO STA (22:53)
[2017-06-28] MEDS ORDERED: NITROGLYCERIN OINT 1GM/INCH UDPKT TD STA (22:53)
[2017-06-28] MEDS ORDERED: FUROSEMIDE 40MG/4ML VIAL IV STA (22:53)
[2017-06-28] MEDS ORDERED: LEVOFLOXACIN 750MG PREMIX 150 ML IV ONE (23:00)
[2017-06-28 23:28] LABS: BASOPHILS % 0.3 % (0.0-2.0); EOSINOPHILS % 0.5 % (0.0-5.0); HEMATOCRIT. 34.9 % (36.0-48.0); HEMOGLOBIN. 10.9 g/dL (12.0-16.0); LYMPHOCYTES % 5.1 % (20.0-50.0); MEAN CORPUSCULAR HEMOGLOBIN 27.7 pg (28.0-32.0); MEAN CORPUSCULAR VOLUME 88.4 fL (81.0-99.0); MEAN PLATELET VOLUME 8.4 fl (7.4-10.4); MONOCYTES % 6.1 % (2.0-8.0); PLATELET 249 x1000/uL (130-400); RED BLOOD CELL COUNT 3.95 mill/uL (4.2-5.4); RED CELL DISTRIBUTION WIDTH 16.5 % (11.6-14.6)
[2017-06-28 23:42] LABS: CHLORIDE 101 mEq/L (98-107)
[2017-06-29] VITALS (7 sets, daily range): BP systolic 129–188; BP diastolic 65–85
[2017-06-29 00:23] LABS: CLARITY URINE CLOUDY (CLEAR); COLOR URINE YELLOW (YELLOW); KETONES URINE NEGATIVE (NEGATIVE); LEUKOCYTE ESTERASE URINE 1+ (NEGATIVE); NITRITE URINE NEGATIVE (NEGATIVE); OCCULT BLOOD URINE 2+ (NEGATIVE); PH URINE 6.5 (4.5-8.0); PROTEIN URINE 1+ (NEGATIVE); UROBILINOGEN URINE 0.2 E.U./dL (0.2-1.0)
[2017-06-29] MEDS ORDERED: GUAIFENESIN 200MG/10ML SUGAR FREE UDC PO PRN (08:00)
[2017-06-29] MEDS ORDERED: MAGNESIUM/ALUMINUM HYDROXIDE/SIMETHICONE 30ML UDC PO PRN (08:00)
[2017-06-29] MEDS ORDERED: ZOLPIDEM TARTRATE 5MG TABLET PO PRN (08:00)
[2017-06-29] MEDS ORDERED: ONDANSETRON HCL 4MG/2ML INJ IV PRN (08:00)
[2017-06-29] MEDS ORDERED: ACETAMINOPHEN 325MG TABLET PO PRN (08:00)
[2017-06-29] MEDS ORDERED: FUROSEMIDE 40MG/4ML VIAL IVP SCH (09:00)
[2017-06-29] MEDS ORDERED: PIPERACILLIN/TAZ 3.375G PREMIX 50 ML IV SCH (09:00)
[2017-06-29] MEDS ORDERED: DOCUSATE SODIUM 100MG CAPSULE PO SCH (09:00)
[2017-06-29] MEDS ORDERED: AMBRISENTAN 10 MG PO SCH (09:00)
[2017-06-29] MEDS: SPIRONOLACTONE 25MG TABLET PO SCH (09:30)
[2017-06-29] MEDS: CITALOPRAM HYDROBROMIDE 10MG TABLET PO SCH (09:30)
[2017-06-29] MEDS: FERROUS SULFATE 325MG TABLET PO SCH (09:30)
[2017-06-29] MEDS: LORATADINE 10MG TABLET PO SCH (09:30)
[2017-06-29] MEDS: APIXABAN 5 MG TABLET PO SCH ×2 (09:31→17:23)
[2017-06-29] MEDS: LEVOTHYROXINE SODIUM 100MCG TABLET PO SCH (09:31)
[2017-06-29] MEDS: BENAZEPRIL 20MG TABLET PO SCH (09:31)
[2017-06-29 09:37] LABS: HEMATOCRIT. 32.4 % (36.0-48.0); HEMOGLOBIN. 10.2 g/dL (12.0-16.0); MEAN CORPUSCULAR HEMOGLOBIN 27.4 pg (28.0-32.0); MEAN PLATELET VOLUME 8.5 fl (7.4-10.4); PLATELET 221 x1000/uL (130-400); RED BLOOD CELL COUNT 3.72 mill/uL (4.2-5.4); RED CELL DISTRIBUTION WIDTH 16.3 % (11.6-14.6)
[2017-06-29] MEDS: HYDROMORPHONE HCL/PF 2MG/ML CPJ IV PRN ×3 (09:48→21:40)
[2017-06-29] MEDS ORDERED: VANCOMYCIN 1,500 MG in SODIUM CHLORIDE 0.9% 250 ML IV SCH (10:00)
[2017-06-29] MEDS ORDERED: NON FORMULARY PATIENT HOME MED XX SCH (10:15)
[2017-06-29] MEDS: BRIMONIDINE 0.2% OPHTH DROPS 5ML BOTHEYE SCH (10:16)
[2017-06-29] MEDS: FLUTICASONE PROPIONATE 50MCG/SPRAY BOTTLE BOTHNSTRLS SCH (10:17)
[2017-06-29] MEDS: TIMOLOL MALEATE 0.5% OPHTH DROPS 5ML EACHEYE SCH (10:17)
[2017-06-29 10:20] LABS: CHLORIDE 100 mEq/L (98-107); HDL CHOLESTEROL 77 mg/dL (40-59); LDL CHOLESTEROL 41 mg/dL (5-100)
[2017-06-29] MEDS ORDERED: AMOXICILLIN/POTASSIUM CLAVULANATE 875/125MG TAB PO NR (12:00)
[2017-06-29] MEDS ORDERED: FLUTICASONE/VILANTEROL 200-25 BLST.W.DEV ORI SCH (12:00)
[2017-06-29] MEDS: PREDNISONE 20MG TABLET PO SCH ×2 (12:04→17:23)
[2017-06-29] MEDS: BUDESONIDE 0.5MG/2ML NEB HHN SCH (12:27)
[2017-06-29] MEDS: IPRATROPIUM/ALBUTEROL 0.5-3(2.5)MG/3ML NEB HHN SCH ×3 (12:27→20:16)
[2017-06-29 13:41] LABS: PLATELET ESTIMATE NORMAL
[2017-06-29 16:27] LABS: CLARITY URINE CLEAR (CLEAR); COLOR URINE YELLOW (YELLOW); KETONES URINE NEGATIVE (NEGATIVE); LEUKOCYTE ESTERASE URINE NEGATIVE (NEGATIVE); NITRITE URINE NEGATIVE (NEGATIVE); OCCULT BLOOD URINE NEGATIVE (NEGATIVE); PROTEIN URINE 1+ (NEGATIVE); SPECIFIC GRAVITY URINE 1.015 (1.005-1.030); UROBILINOGEN URINE 0.2 E.U./dL (0.2-1.0)
[2017-06-29] MEDS: MONTELUKAST SODIUM 10MG TABLET PO SCH (17:27)
[2017-06-29 18:25] LABS: CREATINE KINASE MB FRACTION 1.3 ng/mL (0.5-3.6)
[2017-06-29] MEDS ORDERED: DEXTROSE 50% WATER 50ML SYRINGE IV PRN (20:45)
[2017-06-29] MEDS: AMOXICILLIN/POTASSIUM CLAVULANATE 875/125MG TAB PO SCH (21:11)
[2017-06-29] MEDS: BLOOD SUGAR DIAGNOSTIC STRIP TEST SCH (21:12)
[2017-06-29] MEDS: INSULIN LISPRO 100 UNITS/ML SUBCUT SCH (21:26)
[2017-06-30] VITALS: BP 139/87
[2017-06-30] MEDS: IPRATROPIUM/ALBUTEROL 0.5-3(2.5)MG/3ML NEB HHN SCH ×6 (00:27→20:56)
[2017-06-30] MEDS: BUDESONIDE 0.5MG/2ML NEB HHN SCH ×2 (00:27→11:56)
[2017-06-30 02:29] LABS: CREATINE KINASE MB FRACTION 1.1 ng/mL (0.5-3.6)
[2017-06-30 04:00] VITALS: BP 137/71
[2017-06-30] MEDS: HYDROMORPHONE HCL/PF 2MG/ML CPJ IV PRN ×3 (04:17→20:30)
[2017-06-30] MEDS: BLOOD SUGAR DIAGNOSTIC STRIP TEST SCH ×4 (06:39→21:00)
[2017-06-30] MEDS: LEVOTHYROXINE SODIUM 100MCG TABLET PO SCH (06:39)
[2017-06-30] MEDS: APIXABAN 5 MG TABLET PO SCH ×2 (06:39→18:16)
[2017-06-30 07:02] LABS: HEMATOCRIT. 32.1 % (36.0-48.0); HEMOGLOBIN. 10.4 g/dL (12.0-16.0); MEAN PLATELET VOLUME 8.5 fl (7.4-10.4); PLATELET 227 x1000/uL (130-400); RED BLOOD CELL COUNT 3.73 mill/uL (4.2-5.4); RED CELL DISTRIBUTION WIDTH 16.2 % (11.6-14.6)
[2017-06-30 08:00] VITALS: BP 141/60
[2017-06-30 08:11] LABS: CHLORIDE 94 mEq/L (98-107)
[2017-06-30 08:29] LABS: PLATELET ESTIMATE NORMAL
[2017-06-30] MEDS: TIMOLOL MALEATE 0.5% OPHTH DROPS 5ML EACHEYE SCH (08:50)
[2017-06-30] MEDS: FLUTICASONE PROPIONATE 50MCG/SPRAY BOTTLE BOTHNSTRLS SCH ×2 (08:51→22:23)
[2017-06-30] MEDS: BRIMONIDINE 0.2% OPHTH DROPS 5ML BOTHEYE SCH (08:51)
[2017-06-30] MEDS: AMOXICILLIN/POTASSIUM CLAVULANATE 875/125MG TAB PO SCH (08:52)
[2017-06-30] MEDS: CITALOPRAM HYDROBROMIDE 10MG TABLET PO SCH (08:53)
[2017-06-30] MEDS: DOCUSATE SODIUM 250MG CAPSULE PO SCH (08:53)
[2017-06-30] MEDS: LORATADINE 10MG TABLET PO SCH (08:53)
[2017-06-30] MEDS: SPIRONOLACTONE 25MG TABLET PO SCH (08:53)
[2017-06-30] MEDS: PREDNISONE 20MG TABLET PO SCH ×2 (08:53→18:16)
[2017-06-30] MEDS: INSULIN LISPRO 100 UNITS/ML SUBCUT SCH ×4 (08:55→23:24)
[2017-06-30] MEDS: FERROUS SULFATE 325MG TABLET PO SCH (09:02)
[2017-06-30] MEDS: BENAZEPRIL 20MG TABLET PO SCH (09:02)
[2017-06-30] MEDS: SODIUM CHLORIDE 0.45% 1,000 ML IV SCH (09:03)
[2017-06-30] MEDS ORDERED: ALPRAZOLAM 0.25 MG TABLET PO NR (09:15)
[2017-06-30 12:00] VITALS: BP 130/86
[2017-06-30] MEDS ORDERED: LEVOFLOXACIN 750MG PREMIX 150 ML IV SCH (13:00)
[2017-06-30] MEDS ORDERED: VANCOMYCIN 1,750 MG in SODIUM CHLORIDE 0.9% 250 ML IV SCH (14:00)
[2017-06-30] MEDS: PIPERACILLIN/TAZ 3.375G PREMIX 50 ML IV SCH ×2 (14:24→18:14)
[2017-06-30 16:00] VITALS: BP 92/38
[2017-06-30] MEDS: MONTELUKAST SODIUM 10MG TABLET PO SCH (18:16)
[2017-06-30 20:00] VITALS: BP 134/69
[2017-06-30] MEDS: ALPRAZOLAM 0.25 MG TABLET PO PRN (22:21)
[2017-07-01] VITALS: BP 166/84
[2017-07-01] MEDS: PIPERACILLIN/TAZ 3.375G PREMIX 50 ML IV SCH ×5 (01:02→23:08)
[2017-07-01] MEDS: IPRATROPIUM/ALBUTEROL 0.5-3(2.5)MG/3ML NEB HHN SCH ×6 (01:17→20:36)
[2017-07-01 04:00] VITALS: BP 150/87
[2017-07-01] MEDS: HYDROMORPHONE HCL/PF 2MG/ML CPJ IV PRN ×3 (05:58→20:43)
[2017-07-01] MEDS: APIXABAN 5 MG TABLET PO SCH ×2 (06:02→18:16)
[2017-07-01] MEDS: LEVOTHYROXINE SODIUM 100MCG TABLET PO SCH (06:24)
[2017-07-01] MEDS: BLOOD SUGAR DIAGNOSTIC STRIP TEST SCH ×4 (07:24→20:45)
[2017-07-01] MEDS: BUDESONIDE 0.5MG/2ML NEB HHN SCH ×2 (07:56→20:36)
[2017-07-01 08:09] LABS: HEMATOCRIT. 34.6 % (36.0-48.0); HEMOGLOBIN. 10.9 g/dL (12.0-16.0); MEAN CORPUSCULAR VOLUME 85.6 fL (81.0-99.0); MEAN PLATELET VOLUME 8.7 fl (7.4-10.4); PLATELET 271 x1000/uL (130-400); RED BLOOD CELL COUNT 4.04 mill/uL (4.2-5.4); RED CELL DISTRIBUTION WIDTH 16.3 % (11.6-14.6)
[2017-07-01] MEDS: INSULIN LISPRO 100 UNITS/ML SUBCUT SCH ×4 (08:20→20:44)
[2017-07-01] MEDS: BRIMONIDINE 0.2% OPHTH DROPS 5ML BOTHEYE SCH (08:22)
[2017-07-01] MEDS: TIMOLOL MALEATE 0.5% OPHTH DROPS 5ML EACHEYE SCH (08:22)
[2017-07-01] MEDS: BENAZEPRIL 20MG TABLET PO SCH (08:23)
[2017-07-01] MEDS: FERROUS SULFATE 325MG TABLET PO SCH (08:23)
[2017-07-01] MEDS: LORATADINE 10MG TABLET PO SCH (08:23)
[2017-07-01] MEDS: FLUTICASONE PROPIONATE 50MCG/SPRAY BOTTLE BOTHNSTRLS SCH ×2 (08:23→20:41)
[2017-07-01] MEDS: CITALOPRAM HYDROBROMIDE 10MG TABLET PO SCH (08:23)
[2017-07-01] MEDS: DOCUSATE SODIUM 250MG CAPSULE PO SCH (08:23)
[2017-07-01] MEDS: PREDNISONE 20MG TABLET PO SCH ×2 (08:24→18:17)
[2017-07-01 08:28] VITALS: BP 139/55
[2017-07-01] MEDS ORDERED: VANCOMYCIN 1,250 MG in SODIUM CHLORIDE 0.9% 250 ML IV SCH (09:00)
[2017-07-01] MEDS ORDERED: VANCOMYCIN 1,000 MG in DEXT 5% WATER 250 ML IV SCH (10:00)
[2017-07-01] MEDS: INSULIN GLARGINE UD 100 UNITS/ML SYR SUBCUT SCH (10:19)
[2017-07-01 12:22] VITALS: BP 141/96
[2017-07-01 12:39] LABS: PLATELET ESTIMATE NORMAL
[2017-07-01 16:35] VITALS: BP 139/74
[2017-07-01] MEDS: MONTELUKAST SODIUM 10MG TABLET PO SCH (18:16)
[2017-07-01] MEDS: CARVEDILOL 3.125 MG TABLET PO SCH (18:17)
[2017-07-01 20:00] VITALS: BP 148/82
[2017-07-01] MEDS: SODIUM CHLORIDE 0.45% 1,000 ML IV SCH (23:08)
[2017-07-02] VITALS: BP 157/84
[2017-07-02] MEDS: IPRATROPIUM/ALBUTEROL 0.5-3(2.5)MG/3ML NEB HHN SCH ×6 (00:40→21:06)
[2017-07-02 04:00] VITALS: BP 159/82
[2017-07-02] MEDS: CARVEDILOL 3.125 MG TABLET PO SCH (05:06)
[2017-07-02] MEDS: HYDROMORPHONE HCL/PF 2MG/ML CPJ IV PRN ×4 (05:06→23:44)
[2017-07-02] MEDS: APIXABAN 5 MG TABLET PO SCH ×2 (05:06→17:26)
[2017-07-02] MEDS: PIPERACILLIN/TAZ 3.375G PREMIX 50 ML IV SCH ×4 (05:06→23:40)
[2017-07-02] MEDS: BLOOD SUGAR DIAGNOSTIC STRIP TEST SCH ×4 (06:34→20:00)
[2017-07-02] MEDS: LEVOTHYROXINE SODIUM 100MCG TABLET PO SCH (06:34)
[2017-07-02 07:27] LABS: HEMATOCRIT. 34.1 % (36.0-48.0); HEMOGLOBIN. 11.1 g/dL (12.0-16.0); MEAN CORPUSCULAR HEMOGLOBIN 27.7 pg (28.0-32.0); MEAN CORPUSCULAR VOLUME 85.4 fL (81.0-99.0); MEAN PLATELET VOLUME 8.5 fl (7.4-10.4); PLATELET 250 x1000/uL (130-400); RED BLOOD CELL COUNT 3.99 mill/uL (4.2-5.4); RED CELL DISTRIBUTION WIDTH 16.5 % (11.6-14.6)
[2017-07-02 08:00] VITALS: BP 148/79
[2017-07-02] MEDS: TIMOLOL MALEATE 0.5% OPHTH DROPS 5ML EACHEYE SCH (08:29)
[2017-07-02] MEDS: FLUTICASONE PROPIONATE 50MCG/SPRAY BOTTLE BOTHNSTRLS SCH (08:29)
[2017-07-02] MEDS: BRIMONIDINE 0.2% OPHTH DROPS 5ML BOTHEYE SCH (08:29)
[2017-07-02] MEDS: PREDNISONE 20MG TABLET PO SCH ×2 (08:30→18:09)
[2017-07-02] MEDS: CITALOPRAM HYDROBROMIDE 10MG TABLET PO SCH (08:30)
[2017-07-02] MEDS: BENAZEPRIL 20MG TABLET PO SCH (08:30)
[2017-07-02] MEDS: LORATADINE 10MG TABLET PO SCH (08:30)
[2017-07-02] MEDS: FERROUS SULFATE 325MG TABLET PO SCH (08:30)
[2017-07-02] MEDS: DOCUSATE SODIUM 250MG CAPSULE PO SCH (08:30)
[2017-07-02] MEDS: INSULIN LISPRO 100 UNITS/ML SUBCUT SCH ×4 (08:37→19:59)
[2017-07-02] MEDS: BUDESONIDE 0.5MG/2ML NEB HHN SCH ×2 (08:47→21:05)
[2017-07-02] MEDS ORDERED: FUROSEMIDE 40MG/4ML VIAL IVP NR (09:30)
[2017-07-02] MEDS ORDERED: POTASSIUM CHLORIDE INJ 20 MEQ in SODIUM CHLORIDE 0.45% 1,000 ML IV SCH (09:30)
[2017-07-02] MEDS: POTASSIUM CHLORIDE 20MEQ TABLET SR PO SCH (09:42)
[2017-07-02 12:00] VITALS: BP 156/83
[2017-07-02] MEDS ORDERED: VANCOMYCIN 1250MG in DEXTROSE 5% WATER 250ML IV SCH (12:00)
[2017-07-02] MEDS ORDERED: VANCOMYCIN 1 G PREMIX 200 ML IV SCH (12:00)
[2017-07-02 12:28] LABS: PLATELET ESTIMATE NORMAL
[2017-07-02] MEDS: INSULIN GLARGINE UD 100 UNITS/ML SYR SUBCUT SCH (12:53)
[2017-07-02] MEDS: DILTIAZEM HCL 60MG TABLET PO SCH ×2 (12:57→22:15)
[2017-07-02] MEDS: LEVOFLOXACIN 750MG PREMIX 150 ML IV SCH (12:58)
[2017-07-02] MEDS ORDERED: TERBUTALINE SULFATE 1MG/ML VIAL SUBCUT NR (14:00)
[2017-07-02 16:00] VITALS: BP 154/91
[2017-07-02] MEDS: MONTELUKAST SODIUM 10MG TABLET PO SCH (16:52)
[2017-07-02] MEDS: VANCOMYCIN 1250MG in DEXTROSE 5% WATER 250ML IV SCH (17:50)
[2017-07-02 19:54] VITALS: BP 155/85
[2017-07-02] MEDS: FUROSEMIDE 40MG TABLET PO SCH (20:00)
[2017-07-02] MEDS: ALPRAZOLAM 0.25 MG TABLET PO PRN (20:04)
[2017-07-02] MEDS: GUAIFENESIN-DM 200MG-20MG/10ML UDC PO PRN (22:14)
[2017-07-02] MEDS: CLONIDINE 0.1MG TABLET PO PRN (23:43)
[2017-07-03 00:02] VITALS: BP 168/90
[2017-07-03] MEDS: IPRATROPIUM/ALBUTEROL 0.5-3(2.5)MG/3ML NEB HHN SCH ×6 (01:39→20:30)
[2017-07-03 04:00] VITALS: BP 134/56
[2017-07-03] MEDS: LEVOTHYROXINE SODIUM 100MCG TABLET PO SCH (06:25)
[2017-07-03] MEDS: APIXABAN 5 MG TABLET PO SCH ×2 (06:25→18:14)
[2017-07-03] MEDS: PIPERACILLIN/TAZ 3.375G PREMIX 50 ML IV SCH ×3 (06:25→18:01)
[2017-07-03] MEDS: GUAIFENESIN-DM 200MG-20MG/10ML UDC PO PRN (06:25)
[2017-07-03] MEDS: BLOOD SUGAR DIAGNOSTIC STRIP TEST SCH ×4 (06:26→20:42)
[2017-07-03] MEDS: DILTIAZEM HCL 60MG TABLET PO SCH ×2 (06:26→18:14)
[2017-07-03] MEDS: HYDROMORPHONE HCL/PF 2MG/ML CPJ IV PRN ×3 (06:33→18:39)
[2017-07-03 07:47] LABS: HEMATOCRIT. 33.6 % (36.0-48.0); HEMOGLOBIN. 10.8 g/dL (12.0-16.0); MEAN CORPUSCULAR HEMOGLOBIN 27.3 pg (28.0-32.0); MEAN PLATELET VOLUME 8.2 fl (7.4-10.4); PLATELET 225 x1000/uL (130-400); RED BLOOD CELL COUNT 3.95 mill/uL (4.2-5.4); RED CELL DISTRIBUTION WIDTH 16.2 % (11.6-14.6)
[2017-07-03 08:00] VITALS: BP 138/87
[2017-07-03] MEDS: FERROUS SULFATE 325MG TABLET PO SCH (08:27)
[2017-07-03] MEDS: DOCUSATE SODIUM 250MG CAPSULE PO SCH (08:27)
[2017-07-03] MEDS: POTASSIUM CHLORIDE 20MEQ TABLET SR PO SCH (08:28)
[2017-07-03] MEDS: CITALOPRAM HYDROBROMIDE 10MG TABLET PO SCH (08:28)
[2017-07-03] MEDS: FUROSEMIDE 40MG TABLET PO SCH ×2 (08:28→20:41)
[2017-07-03] MEDS: BRIMONIDINE 0.2% OPHTH DROPS 5ML BOTHEYE SCH (08:28)
[2017-07-03] MEDS: PREDNISONE 20MG TABLET PO SCH (08:28)
[2017-07-03] MEDS: LORATADINE 10MG TABLET PO SCH (08:28)
[2017-07-03] MEDS: BENAZEPRIL 20MG TABLET PO SCH (08:28)
[2017-07-03] MEDS: TIMOLOL MALEATE 0.5% OPHTH DROPS 5ML EACHEYE SCH (08:29)
[2017-07-03] MEDS: INSULIN LISPRO 100 UNITS/ML SUBCUT SCH ×4 (08:33→20:42)
[2017-07-03] MEDS: BUDESONIDE 0.5MG/2ML NEB HHN SCH ×2 (08:37→20:30)
[2017-07-03] MEDS ORDERED: CALCIUM CARBONATE 1250MG TABLET (500MG ELEMENTAL CALCIUM) PO SCH (09:00)
[2017-07-03] MEDS: ALPRAZOLAM 0.25 MG TABLET PO PRN (09:51)
[2017-07-03] MEDS: INSULIN GLARGINE UD 100 UNITS/ML SYR SUBCUT SCH (09:55)
[2017-07-03 12:00] VITALS: BP 144/70
[2017-07-03] MEDS: METHYLPREDNISOLONE SOD SUCC 40 MG/ML VIAL IV SCH ×2 (13:10→21:19)
[2017-07-03 14:04] LABS: PLATELET ESTIMATE NORMAL
[2017-07-03 16:00] VITALS: BP 136/76
[2017-07-03] MEDS: MONTELUKAST SODIUM 10MG TABLET PO SCH (18:14)
[2017-07-03] MEDS: VANCOMYCIN 1250MG in DEXTROSE 5% WATER 250ML IV SCH (18:33)
[2017-07-03 20:00] VITALS: BP 143/61
[2017-07-04] VITALS: BP 173/76
[2017-07-04] MEDS: PIPERACILLIN/TAZ 3.375G PREMIX 50 ML IV SCH ×4 (00:27→16:46)
[2017-07-04] MEDS: HYDROMORPHONE HCL/PF 2MG/ML CPJ IV PRN ×2 (00:27→05:52)
[2017-07-04] MEDS: DILTIAZEM HCL 60MG TABLET PO SCH ×2 (00:27→05:53)
[2017-07-04] MEDS: IPRATROPIUM/ALBUTEROL 0.5-3(2.5)MG/3ML NEB HHN SCH ×6 (00:32→21:13)
[2017-07-04] MEDS: CLONIDINE 0.1MG TABLET PO PRN (00:41)
[2017-07-04 03:59] VITALS: BP 163/80
[2017-07-04] MEDS: APIXABAN 5 MG TABLET PO SCH ×2 (05:53→16:45)
[2017-07-04] MEDS: METHYLPREDNISOLONE SOD SUCC 40 MG/ML VIAL IV SCH ×3 (05:53→22:03)
[2017-07-04] MEDS: INSULIN LISPRO 100 UNITS/ML SUBCUT SCH ×4 (05:55→22:03)
[2017-07-04] MEDS: LEVOTHYROXINE SODIUM 100MCG TABLET PO SCH (06:11)
[2017-07-04] MEDS: BLOOD SUGAR DIAGNOSTIC STRIP TEST SCH ×4 (06:20→21:21)
[2017-07-04 06:55] LABS: HEMATOCRIT. 34.4 % (36.0-48.0); HEMOGLOBIN. 10.9 g/dL (12.0-16.0); MEAN CORPUSCULAR HEMOGLOBIN 27.1 pg (28.0-32.0); MEAN CORPUSCULAR VOLUME 85.5 fL (81.0-99.0); MEAN PLATELET VOLUME 8.5 fl (7.4-10.4); PLATELET 235 x1000/uL (130-400); RED BLOOD CELL COUNT 4.03 mill/uL (4.2-5.4)
[2017-07-04 08:00] VITALS: BP 151/67
[2017-07-04] MEDS ORDERED: DILTIAZEM HCL 240MG ER (24HR) PO SCH (08:00)
[2017-07-04] MEDS: BUDESONIDE 0.5MG/2ML NEB HHN SCH ×2 (08:13→21:14)
[2017-07-04] MEDS: DOCUSATE SODIUM 250MG CAPSULE PO SCH (09:00)
[2017-07-04 09:58] LABS: NUCLEATED RED BLOOD CELLS 1 /100 WBC; PLATELET ESTIMATE NORMAL
[2017-07-04] MEDS: POTASSIUM CHLORIDE 20MEQ TABLET SR PO SCH (10:55)
[2017-07-04] MEDS: FUROSEMIDE 40MG TABLET PO SCH ×2 (10:55→21:15)
[2017-07-04] MEDS: BENAZEPRIL 20MG TABLET PO SCH (10:56)
[2017-07-04] MEDS: CITALOPRAM HYDROBROMIDE 10MG TABLET PO SCH (10:56)
[2017-07-04] MEDS: SPIRONOLACTONE 25MG TABLET PO SCH (10:57)
[2017-07-04] MEDS: LORATADINE 10MG TABLET PO SCH (10:58)
[2017-07-04] MEDS: FERROUS SULFATE 325MG TABLET PO SCH (10:58)
[2017-07-04] MEDS: CARVEDILOL 3.125 MG TABLET PO SCH ×2 (10:58→21:14)
[2017-07-04] MEDS: INSULIN GLARGINE UD 100 UNITS/ML SYR SUBCUT SCH (11:01)
[2017-07-04] MEDS: TIMOLOL MALEATE 0.5% OPHTH DROPS 5ML EACHEYE SCH (11:02)
[2017-07-04] MEDS: BRIMONIDINE 0.2% OPHTH DROPS 5ML BOTHEYE SCH (11:02)
[2017-07-04 12:00] VITALS: BP 143/68
[2017-07-04] MEDS: ALPRAZOLAM 0.25 MG TABLET PO PRN (13:01)
[2017-07-04] MEDS ORDERED: HYDROMORPHONE HCL/PF 2MG/ML CPJ IV NR (13:15)
[2017-07-04] MEDS ORDERED: HYDROCODONE/ACETAMINOPHEN 5/325MG TABLET PO PRN (13:15)
[2017-07-04] MEDS: LEVOFLOXACIN 750MG PREMIX 150 ML IV SCH (13:52)
[2017-07-04 16:30] VITALS: BP 116/60
[2017-07-04] MEDS: MONTELUKAST SODIUM 10MG TABLET PO SCH (16:46)
[2017-07-04] MEDS: VANCOMYCIN 1250MG in DEXTROSE 5% WATER 250ML IV SCH (17:57)
[2017-07-04 20:00] VITALS: BP 157/86
[2017-07-04] MEDS: ALPRAZOLAM 0.5 MG TABLET PO PRN (21:15)
[2017-07-04] MEDS: HYDROCODONE/APAP 7.5/325MG 1 TAB TABLET PO PRN (21:17)
[2017-07-05] VITALS: BP 137/63
[2017-07-05] MEDS: PIPERACILLIN/TAZ 3.375G PREMIX 50 ML IV SCH ×3 (00:32→12:04)
[2017-07-05] MEDS: IPRATROPIUM/ALBUTEROL 0.5-3(2.5)MG/3ML NEB HHN SCH ×3 (01:32→08:15)
[2017-07-05] MEDS: HYDROCODONE/APAP 7.5/325MG 1 TAB TABLET PO PRN (03:37)
[2017-07-05 04:00] VITALS: BP 161/78
[2017-07-05] MEDS: CLONIDINE 0.1MG TABLET PO PRN (04:49)
[2017-07-05] MEDS: ALPRAZOLAM 0.5 MG TABLET PO PRN ×2 (05:41→13:36)
[2017-07-05] MEDS: METHYLPREDNISOLONE SOD SUCC 40 MG/ML VIAL IV SCH ×2 (05:42→13:26)
[2017-07-05] MEDS: APIXABAN 5 MG TABLET PO SCH (05:42)
[2017-07-05] MEDS: BLOOD SUGAR DIAGNOSTIC STRIP TEST SCH ×2 (06:38→12:20)
[2017-07-05] MEDS: LEVOTHYROXINE SODIUM 100MCG TABLET PO SCH (06:38)
[2017-07-05 07:27] LABS: HEMATOCRIT. 36.1 % (36.0-48.0); HEMOGLOBIN. 11.6 g/dL (12.0-16.0); MEAN CORPUSCULAR HEMOGLOBIN 27.4 pg (28.0-32.0); MEAN CORPUSCULAR VOLUME 84.9 fL (81.0-99.0); MEAN PLATELET VOLUME 8.4 fl (7.4-10.4); PLATELET 255 x1000/uL (130-400); RED BLOOD CELL COUNT 4.25 mill/uL (4.2-5.4); RED CELL DISTRIBUTION WIDTH 15.7 % (11.6-14.6)
[2017-07-05 08:00] VITALS: BP 143/74
[2017-07-05] MEDS: BUDESONIDE 0.5MG/2ML NEB HHN SCH (08:14)
[2017-07-05] MEDS: INSULIN LISPRO 100 UNITS/ML SUBCUT SCH ×2 (08:30→12:26)
[2017-07-05] MEDS ORDERED: CARVEDILOL 3.125 MG TABLET PO SCH (09:00)
[2017-07-05] MEDS: CITALOPRAM HYDROBROMIDE 10MG TABLET PO SCH (09:13)
[2017-07-05] MEDS: FERROUS SULFATE 325MG TABLET PO SCH (09:13)
[2017-07-05] MEDS: LORATADINE 10MG TABLET PO SCH (09:13)
[2017-07-05] MEDS: SPIRONOLACTONE 25MG TABLET PO SCH (09:13)
[2017-07-05] MEDS: BENAZEPRIL 20MG TABLET PO SCH (09:14)
[2017-07-05] MEDS: FUROSEMIDE 40MG TABLET PO SCH (09:14)
[2017-07-05] MEDS: POTASSIUM CHLORIDE 20MEQ TABLET SR PO SCH (09:14)
[2017-07-05] MEDS: TIMOLOL MALEATE 0.5% OPHTH DROPS 5ML EACHEYE SCH (09:15)
[2017-07-05] MEDS: BRIMONIDINE 0.2% OPHTH DROPS 5ML BOTHEYE SCH (09:15)
[2017-07-05] MEDS: DOCUSATE SODIUM 250MG CAPSULE PO SCH (09:15)
[2017-07-05] MEDS: INSULIN GLARGINE UD 100 UNITS/ML SYR SUBCUT SCH (11:29)
[2017-07-05 12:00] VITALS: BP 139/68
[2017-07-05] MEDS ORDERED: VANCOMYCIN 1 G PREMIX 200 ML IV SCH (12:00)
[2017-07-05] MEDS ORDERED: VANCOMYCIN 1,000 MG in DEXT 5% WATER 250 ML IV SCH (12:00)
[2017-07-05 13:14] LABS: PLATELET ESTIMATE NORMAL
[2017-07-05 16:00] VITALS: BP 139/68
[2017-07-05 16:09] VITALS: BP 139/68
== END 2017-07-05 16:55 | disposition home or self-care (01) | DRG 871 ==
LOC: ER 22:37 → 6WST 06-29 01:43 → EDBEDREQ 06-29 01:45 → ENRESERV 06-29 04:43 → 6WST 07-05 07:49
PROVIDERS: ADMIT Internal Medicine Geriatric Medicine; ATTEND Internal Medicine Geriatric Medicine
PROC: 02HV33Z Insertion of Infusion Device into Superior Vena Cava, Percutaneous Approach (ICD-10-PCS; principal; 2017-06-29)
PROC: B5181ZA Fluoroscopy of Superior Vena Cava using Low Osmolar Contrast, Guidance (ICD-10-PCS; 2017-06-29)
PROC: 5A09357 Assistance with Respiratory Ventilation, Less than 24 Consecutive Hours, Continuous Positive Airway Pressure (ICD-10-PCS; 2017-07-01)
DX: A41.9 Sepsis, unspecified organism (principal); N17.0 Acute kidney failure with tubular necrosis; J69.0 Pneumonitis due to inhalation of food and vomit; J96.20 Acute and chronic respiratory failure, unspecified whether with hypoxia or hypercapnia; I50.33 Acute on chronic diastolic (congestive) heart failure; B02.9 Zoster without complications; E66.01 Morbid (severe) obesity due to excess calories; J45.901 Unspecified asthma with (acute) exacerbation; J44.0 Chronic obstructive pulmonary disease with (acute) lower respiratory infection; J44.1 Chronic obstructive pulmonary disease with (acute) exacerbation; I13.0 Hypertensive heart and chronic kidney disease with heart failure and stage 1 through stage 4 chronic kidney disease, or unspecified chronic kidney disease; E11.22 Type 2 diabetes mellitus with diabetic chronic kidney disease; E83.51 Hypocalcemia; I48.2 Chronic atrial fibrillation; N18.9 Chronic kidney disease, unspecified; G47.33 Obstructive sleep apnea (adult) (pediatric); K44.9 Diaphragmatic hernia without obstruction or gangrene; E03.9 Hypothyroidism, unspecified; I27.29 Other secondary pulmonary hypertension; J31.0 Chronic rhinitis; F41.9 Anxiety disorder, unspecified; F32.9 Major depressive disorder, single episode, unspecified; K57.90 Diverticulosis of intestine, part unspecified, without perforation or abscess without bleeding; K59.09 Other constipation; I87.2 Venous insufficiency (chronic) (peripheral); Z60.2 Problems related to living alone; Z86.010 Personal history of colon polyps; Z79.899 Other long term (current) drug therapy; Z87.11 Personal history of peptic ulcer disease; Z99.81 Dependence on supplemental oxygen; Z87.891 Personal history of nicotine dependence; Z87.01 Personal history of pneumonia (recurrent); Z79.4 Long term (current) use of insulin; Z68.33 Body mass index [BMI] 33.0-33.9, adult
CPT/HCPCS: 36415; 36569; 71045; 76937; 77001; 80048; 80061; 80202; 81001; 82270; 82553; 82962; 83605; 83735; 83880; 84484; 87804; 93005; 93306; 93971; 94640; 94660; 94664; 96365; 96366; 96375; 97110; 97116; 97162; 97530; 99291; C1725; J1170; J1815; J1940; J1956; J2543; J2920; J3105; J3370; J3480; J7050; J7060; J7512; J7620; J7626

== ENCOUNTER 2017-07-31 07:33 | Inpatient (IN) | payer MEDICARE, MEDICAID ==
[~2017-07-31] VITALS: Ht 157.5 cm; Wt 112.6 kg
[~2017-07-31 07:33] MED LIST changes: -BENA20TA10 PO; +BENA20TA3 PO; +SPIR25TA4 PO; -SPIR25TA6 PO
[2017-07-31] MEDS ORDERED: NITROGLYCERIN OINT 1GM/INCH UDPKT TD STA (07:43)
[2017-07-31] MEDS ORDERED: FUROSEMIDE 40MG/4ML VIAL IV STA (07:43)
[2017-07-31] MEDS ORDERED: AZITHROMYCIN 500 MG in DEXT 5% WATER 250 ML IV STA (07:51)
[2017-07-31 08:17] LABS: HEMATOCRIT. 28.3 % (36.0-48.0); HEMOGLOBIN. 8.7 g/dL (12.0-16.0); MEAN CORPUSCULAR HEMOGLOBIN 27.5 pg (28.0-32.0); MEAN PLATELET VOLUME 7.5 fl (7.4-10.4); PLATELET 345 x1000/uL (130-400); RED BLOOD CELL COUNT 3.18 mill/uL (4.2-5.4)
[2017-07-31 08:23] LABS: PROTHROMBIN TIME 10.7 sec (9.4-11.6)
[2017-07-31] MEDS ORDERED: AZITHROMYCIN 500 MG in SODIUM CHLORIDE 0.9% 250 ML IV STA (08:24)
[2017-07-31 08:27] LABS: CHLORIDE 101 mEq/L (98-107)
[2017-07-31 09:01] LABS: NUCLEATED RED BLOOD CELLS 1 /100 WBC
[2017-07-31 09:02] LABS: PLATELET ESTIMATE NORMAL
[2017-07-31] MEDS ORDERED: VANCOMYCIN 1,250 MG in DEXT 5% WATER 250 ML IV STA (09:31)
[2017-07-31] MEDS ORDERED: PIPERACILLIN/TAZ 3.375G PREMIX 50 ML IV ONE (09:45)
[2017-07-31] MEDS ORDERED: PIPERACILLIN/TAZOBACTAM 3.375GM/50ML PREMIX IV ONE (09:45)
[2017-07-31] MEDS: IPRATROPIUM/ALBUTEROL 0.5-3(2.5)MG/3ML NEB HHN NR (10:18)
[2017-07-31] MEDS ORDERED: AMINOPHYLLINE 500 MG/20 ML IV SCH (10:30)
[2017-07-31] MEDS ORDERED: ACETAMINOPHEN 325MG TABLET PO ONE (10:45)
[2017-07-31 10:52] LABS: BG BASE EXCESS 3.7 mmol/L (-2.0-2.0); BG BILEVEL POS AIRWAY PRESSURE 15/5; BG CARBOXYHEMOGLOBIN 0.5 % (0.5-1.5); BG DEOXYHEMOGLOBIN 2.5 % (0.0-5.0); BG FRACTION INSPIRED OXYGEN 50; BG HCO3 ACT 31.4 mmol/L (22.0-26.0); BG METHEMOGLOBIN 0.3 % (0.0-1.5); BG OXYGEN SATURATION 97.5 % (92.0-98.5); BG OXYHEMOGLOBIN 96.7 % (94.0-97.0); BG PCO2 67.2 mmHg (35.0-45.0); BG PH 7.287 (7.350-7.450); BG PO2 116.3 mmHg (75.0-100.0); BG SAMPLE SITE LEFT RADIAL; BG VENT MODE MASK - BIPAP
[2017-07-31] MEDS ORDERED: MORPHINE SULFATE 2 MG/ML CPJ (NOT FOR IM USE) IV PRN (11:15)
[2017-07-31] MEDS ORDERED: ONDANSETRON HCL 4MG/2ML VIAL IV PRN (11:15)
[2017-07-31] MEDS ORDERED: ACETAMINOPHEN 325MG TABLET PO PRN (11:15)
[2017-07-31] MEDS ORDERED: VANCOMYCIN 1,250 MG in SODIUM CHLORIDE 0.9% 250 ML IV NR (11:30)
[2017-07-31] MEDS ORDERED: MORPHINE SULFATE 4 MG/ML CPJ (NOT FOR IM USE) IV PRN (12:23)
[2017-07-31] MEDS ORDERED: LIDOCAINE HCL/PF 1% 2ML VIAL ONE (13:13)
[2017-07-31 16:22] VITALS: BP 111/58
[2017-07-31 16:23] VITALS: BP 111/58
[2017-07-31] MEDS ORDERED: ACETAZOLAMIDE 250MG TABLET PO NR (16:30)
[2017-07-31] MEDS ORDERED: FUROSEMIDE 40MG/4ML VIAL IVP NR (16:30)
[2017-07-31] MEDS: METHYLPREDNISOLONE SOD SUCC 40 MG/ML VIAL IV SCH ×2 (17:13→21:57)
[2017-07-31] MEDS: APIXABAN 2.5 MG TABLET PO SCH (17:14)
[2017-07-31] MEDS ORDERED: DEXTROSE 50% WATER 50ML SYRINGE IV PRN (17:30)
[2017-07-31] MEDS: IPRATROPIUM/ALBUTEROL 0.5-3(2.5)MG/3ML NEB HHN SCH ×2 (17:45→19:58)
[2017-07-31 18:00] VITALS: BP 117/68
[2017-07-31] MEDS: BLOOD SUGAR DIAGNOSTIC STRIP TEST SCH ×2 (18:02→21:00)
[2017-07-31] MEDS: INSULIN LISPRO 100 UNITS/ML SUBCUT SCH ×2 (18:06→21:10)
[2017-07-31 20:00] VITALS: BP 131/67
[2017-07-31] MEDS: ALPRAZOLAM 0.25 MG TABLET PO PRN (20:04)
[2017-07-31 20:31] LABS: CREATINE KINASE MB FRACTION 1.2 ng/mL (0.5-3.6)
[2017-07-31] MEDS: AMINOPHYLLINE IV SCH (20:51)
[2017-07-31] MEDS: SODIUM CHLORIDE 0.9% IV SCH (20:51)
[2017-07-31] MEDS ORDERED: INSULIN LISPRO 100 UNITS/ML SUBCUT SCH (21:00)
[2017-07-31] MEDS: OMEPRAZOLE 20MG CAPSULE EXTENDED RELEASE PO SCH (21:10)
[2017-07-31] MEDS: ATORVASTATIN CALCIUM 10MG TABLET PO SCH (21:10)
[2017-07-31] MEDS: FUROSEMIDE 40MG TABLET PO SCH (21:10)
[2017-07-31 22:00] VITALS: BP 139/64
[2017-08-01] VITALS (13 sets, daily range): BP systolic 105–167; BP diastolic 39–74
[2017-08-01] MEDS: IPRATROPIUM/ALBUTEROL 0.5-3(2.5)MG/3ML NEB HHN SCH ×5 (00:03→21:32)
[2017-08-01] MEDS: METHYLPREDNISOLONE SOD SUCC 40 MG/ML VIAL IV SCH ×3 (05:52→23:27)
[2017-08-01] MEDS: APIXABAN 2.5 MG TABLET PO SCH ×2 (05:59→17:47)
[2017-08-01] MEDS: OMEPRAZOLE 20MG CAPSULE EXTENDED RELEASE PO SCH ×2 (05:59→20:39)
[2017-08-01] MEDS: BLOOD SUGAR DIAGNOSTIC STRIP TEST SCH ×4 (06:50→21:05)
[2017-08-01] MEDS ORDERED: LEVOTHYROXINE SODIUM 100MCG TABLET PO SCH (06:50)
[2017-08-01] MEDS ORDERED: NON FORMULARY PATIENT HOME MED EA XX SCH (07:30)
[2017-08-01] MEDS: TIMOLOL MALEATE 0.5% OPHTH DROPS 5ML EACHEYE SCH (08:35)
[2017-08-01] MEDS: BRIMONIDINE 0.2% OPHTH DROPS 5ML BOTHEYE SCH (08:35)
[2017-08-01] MEDS: FERROUS SULFATE 325MG TABLET PO SCH (08:36)
[2017-08-01] MEDS: LEVOTHYROXINE SODIUM 125MCG TABLET PO SCH (08:36)
[2017-08-01] MEDS: DOCUSATE SODIUM 250MG CAPSULE PO SCH (08:36)
[2017-08-01] MEDS: BENAZEPRIL 20MG TABLET PO SCH (08:36)
[2017-08-01] MEDS: FOLIC ACID/VITAMIN B COMP W-C TABLET PO SCH (08:36)
[2017-08-01] MEDS: FUROSEMIDE 40MG TABLET PO SCH ×2 (08:38→22:17)
[2017-08-01] MEDS: INSULIN LISPRO 100 UNITS/ML SUBCUT SCH ×4 (08:38→22:00)
[2017-08-01] MEDS ORDERED: FUROSEMIDE 40MG/4ML VIAL IVP SCH (09:00)
[2017-08-01] MEDS: LETAIRIS 10 MG PO SCH (09:00)
[2017-08-01] MEDS ORDERED: LIDOCAINE HCL 1% 20ML VIAL (Pyxis) INJ ONE (09:04)
[2017-08-01 09:11] LABS: BG BASE EXCESS 3.1 mmol/L (-2.0-2.0); BG CARBOXYHEMOGLOBIN 1.2 % (0.5-1.5); BG DEOXYHEMOGLOBIN 6.8 % (0.0-5.0); BG FRACTION INSPIRED OXYGEN 30; BG HCO3 ACT 31.4 mmol/L (22.0-26.0); BG METHEMOGLOBIN 0.3 % (0.0-1.5); BG OXYGEN SATURATION 93.1 % (92.0-98.5); BG OXYHEMOGLOBIN 91.7 % (94.0-97.0); BG PCO2 73.1 mmHg (35.0-45.0); BG PH 7.251 (7.350-7.450); BG SAMPLE SITE RIGHT RADIAL; BG TOTAL HEMOGLOBIN 8.8 g/dL (12.0-18.0); BG VENT MODE NASAL CANNULA
[2017-08-01] MEDS ORDERED: LIDOCAINE HCL/PF 1% 2ML VIAL ONE (09:34)
[2017-08-01] MEDS: INSULIN GLARGINE UD 100 UNITS/ML SYR SUBCUT SCH (11:57)
[2017-08-01] MEDS: ALPRAZOLAM 0.25 MG TABLET PO PRN (15:31)
[2017-08-01 15:41] LABS: HEMATOCRIT. 24.9 % (36.0-48.0); HEMOGLOBIN. 7.8 g/dL (12.0-16.0); MEAN CORPUSCULAR HEMOGLOBIN 28.2 pg (28.0-32.0); MEAN CORPUSCULAR VOLUME 90.5 fL (81.0-99.0); PLATELET 270 x1000/uL (130-400); RED BLOOD CELL COUNT 2.75 mill/uL (4.2-5.4); RED CELL DISTRIBUTION WIDTH 17.6 % (11.6-14.6)
[2017-08-01 16:04] LABS: CHLORIDE 101 mEq/L (98-107)
[2017-08-01 16:10] LABS: CREATINE KINASE MB FRACTION 1.2 ng/mL (0.5-3.6)
[2017-08-01 17:05] LABS: NUCLEATED RED BLOOD CELLS 1 /100 WBC; PLATELET ESTIMATE NORMAL
[2017-08-01] MEDS: SODIUM CHLORIDE 0.9% IV SCH (17:53)
[2017-08-01] MEDS: AMINOPHYLLINE IV SCH (17:53)
[2017-08-01] MEDS: ATORVASTATIN CALCIUM 10MG TABLET PO SCH (20:39)
[2017-08-01] MEDS: MONTELUKAST SODIUM 10MG TABLET PO SCH (20:39)
[2017-08-01] MEDS: HYDROCODONE/ACETAMINOPHEN 5/325MG TABLET PO PRN (20:43)
[2017-08-02] VITALS (13 sets, daily range): BP systolic 116–150; BP diastolic 62–80
[2017-08-02] MEDS: IPRATROPIUM/ALBUTEROL 0.5-3(2.5)MG/3ML NEB HHN NR (01:21)
[2017-08-02] MEDS: IPRATROPIUM/ALBUTEROL 0.5-3(2.5)MG/3ML NEB HHN SCH ×5 (01:27→20:54)
[2017-08-02] MEDS: OMEPRAZOLE 20MG CAPSULE EXTENDED RELEASE PO SCH ×2 (06:43→20:51)
[2017-08-02] MEDS: APIXABAN 2.5 MG TABLET PO SCH ×2 (06:43→17:12)
[2017-08-02] MEDS: METHYLPREDNISOLONE SOD SUCC 40 MG/ML VIAL IV SCH (06:43)
[2017-08-02] MEDS: LEVOTHYROXINE SODIUM 125MCG TABLET PO SCH (06:43)
[2017-08-02] MEDS: BLOOD SUGAR DIAGNOSTIC STRIP TEST SCH ×4 (06:48→20:26)
[2017-08-02] MEDS ORDERED: LEVOFLOXACIN 500MG PREMIX 100 ML IV SCH ×2 (07:15→09:00)
[2017-08-02 07:26] LABS: HEMATOCRIT. 23.7 % (36.0-48.0); HEMOGLOBIN. 7.6 g/dL (12.0-16.0); MEAN CORPUSCULAR HEMOGLOBIN 28.5 pg (28.0-32.0); MEAN CORPUSCULAR VOLUME 88.5 fL (81.0-99.0); MEAN PLATELET VOLUME 8.2 fl (7.4-10.4); PLATELET 273 x1000/uL (130-400); RED BLOOD CELL COUNT 2.67 mill/uL (4.2-5.4); RED CELL DISTRIBUTION WIDTH 17.7 % (11.6-14.6)
[2017-08-02] MEDS: FOLIC ACID/VITAMIN B COMP W-C TABLET PO SCH (08:26)
[2017-08-02] MEDS: DOCUSATE SODIUM 250MG CAPSULE PO SCH (08:26)
[2017-08-02] MEDS: BENAZEPRIL 20MG TABLET PO SCH (08:26)
[2017-08-02] MEDS: FERROUS SULFATE 325MG TABLET PO SCH (08:27)
[2017-08-02] MEDS: TIMOLOL MALEATE 0.5% OPHTH DROPS 5ML EACHEYE SCH (08:28)
[2017-08-02] MEDS: FUROSEMIDE 40MG/4ML VIAL IVP SCH (08:28)
[2017-08-02] MEDS: BRIMONIDINE 0.2% OPHTH DROPS 5ML BOTHEYE SCH (08:28)
[2017-08-02] MEDS: HYDROCODONE/ACETAMINOPHEN 5/325MG TABLET PO PRN ×3 (08:28→20:57)
[2017-08-02] MEDS: LETAIRIS 10 MG PO SCH (08:28)
[2017-08-02] MEDS: INSULIN LISPRO 100 UNITS/ML SUBCUT SCH ×4 (08:31→20:50)
[2017-08-02] MEDS: INSULIN GLARGINE UD 100 UNITS/ML SYR SUBCUT SCH (11:07)
[2017-08-02] MEDS: ALPRAZOLAM 0.25 MG TABLET PO PRN (13:04)
[2017-08-02 13:32] LABS: NUCLEATED RED BLOOD CELLS 2 /100 WBC; PLATELET ESTIMATE NORMAL
[2017-08-02] MEDS: FUROSEMIDE 40MG TABLET PO SCH (17:13)
[2017-08-02] MEDS: MONTELUKAST SODIUM 10MG TABLET PO SCH (20:51)
[2017-08-02] MEDS: ATORVASTATIN CALCIUM 10MG TABLET PO SCH (20:51)
[2017-08-03] VITALS (22 sets, daily range): BP systolic 120–154; BP diastolic 55–112
[2017-08-03] MEDS: IPRATROPIUM/ALBUTEROL 0.5-3(2.5)MG/3ML NEB HHN SCH ×4 (00:33→19:51)
[2017-08-03] MEDS: ALPRAZOLAM 0.25 MG TABLET PO PRN (00:53)
[2017-08-03] MEDS: HYDROCODONE/ACETAMINOPHEN 5/325MG TABLET PO PRN ×3 (05:39→17:51)
[2017-08-03] MEDS: BLOOD SUGAR DIAGNOSTIC STRIP TEST SCH ×4 (06:23→20:38)
[2017-08-03] MEDS: APIXABAN 2.5 MG TABLET PO SCH ×2 (06:36→17:43)
[2017-08-03] MEDS: OMEPRAZOLE 20MG CAPSULE EXTENDED RELEASE PO SCH ×2 (06:36→20:42)
[2017-08-03] MEDS: LEVOTHYROXINE SODIUM 125MCG TABLET PO SCH (06:37)
[2017-08-03 07:17] LABS: BASOPHILS % 0.2 % (0.0-2.0); EOSINOPHILS % 0.2 % (0.0-5.0); HEMATOCRIT. 24.9 % (36.0-48.0); LYMPHOCYTES % 13.2 % (20.0-50.0); MEAN CORPUSCULAR HEMOGLOBIN 27.6 pg (28.0-32.0); MEAN CORPUSCULAR VOLUME 86.3 fL (81.0-99.0); MEAN PLATELET VOLUME 7.8 fl (7.4-10.4); MONOCYTES % 9.4 % (2.0-8.0); PLATELET 282 x1000/uL (130-400); RED BLOOD CELL COUNT 2.89 mill/uL (4.2-5.4); RED CELL DISTRIBUTION WIDTH 17.3 % (11.6-14.6)
[2017-08-03] MEDS: FUROSEMIDE 40MG/4ML VIAL IVP SCH (08:33)
[2017-08-03] MEDS: FOLIC ACID/VITAMIN B COMP W-C TABLET PO SCH (08:33)
[2017-08-03] MEDS: DOCUSATE SODIUM 250MG CAPSULE PO SCH (08:33)
[2017-08-03] MEDS: FERROUS SULFATE 325MG TABLET PO SCH (08:33)
[2017-08-03] MEDS: BENAZEPRIL 20MG TABLET PO SCH (08:33)
[2017-08-03] MEDS: BRIMONIDINE 0.2% OPHTH DROPS 5ML BOTHEYE SCH (08:34)
[2017-08-03] MEDS: TIMOLOL MALEATE 0.5% OPHTH DROPS 5ML EACHEYE SCH (08:34)
[2017-08-03] MEDS: LETAIRIS 10 MG PO SCH (08:34)
[2017-08-03] MEDS: INSULIN LISPRO 100 UNITS/ML SUBCUT SCH ×4 (08:35→20:38)
[2017-08-03 08:52] LABS: BG CARBOXYHEMOGLOBIN 0.3 % (0.5-1.5); BG FRACTION INSPIRED OXYGEN 30; BG HCO3 ACT 28.5 mmol/L (22.0-26.0); BG METHEMOGLOBIN 0.3 % (0.0-1.5); BG OXYHEMOGLOBIN 94.4 % (94.0-97.0); BG PCO2 47.9 mmHg (35.0-45.0); BG PH 7.392 (7.350-7.450); BG PO2 82.8 mmHg (75.0-100.0); BG SAMPLE SITE RIGHT RADIAL; BG VENT MODE NASAL CANNULA
[2017-08-03] MEDS: MEROPENEM 500 MG in SODIUM CHLORIDE 0.9% 50 ML IV SCH ×2 (10:53→16:30)
[2017-08-03] MEDS ORDERED: LEVOFLOXACIN 250MG PREMIX 50 ML IV SCH (11:00)
[2017-08-03] MEDS ORDERED: LIDOCAINE HCL/PF 1% 2ML VIAL ONE (11:01)
[2017-08-03] MEDS: INSULIN GLARGINE UD 100 UNITS/ML SYR SUBCUT SCH (11:04)
[2017-08-03] MEDS: FUROSEMIDE 40MG TABLET PO SCH (17:43)
[2017-08-03] MEDS: MONTELUKAST SODIUM 10MG TABLET PO SCH (20:42)
[2017-08-03] MEDS: ATORVASTATIN CALCIUM 10MG TABLET PO SCH (20:42)
[2017-08-04] VITALS (19 sets, daily range): BP systolic 103–167; BP diastolic 55–107
[2017-08-04] MEDS: MEROPENEM 500 MG in SODIUM CHLORIDE 0.9% 50 ML IV SCH ×3 (00:53→17:04)
[2017-08-04] MEDS: IPRATROPIUM/ALBUTEROL 0.5-3(2.5)MG/3ML NEB HHN SCH ×4 (00:55→20:57)
[2017-08-04] MEDS: HYDROCODONE/ACETAMINOPHEN 5/325MG TABLET PO PRN ×2 (04:46→17:10)
[2017-08-04] MEDS: OMEPRAZOLE 20MG CAPSULE EXTENDED RELEASE PO SCH ×2 (06:27→21:01)
[2017-08-04] MEDS: APIXABAN 2.5 MG TABLET PO SCH ×2 (06:27→18:44)
[2017-08-04] MEDS: LEVOTHYROXINE SODIUM 125MCG TABLET PO SCH (06:27)
[2017-08-04] MEDS: BLOOD SUGAR DIAGNOSTIC STRIP TEST SCH ×4 (06:29→20:47)
[2017-08-04] MEDS: ALPRAZOLAM 0.25 MG TABLET PO PRN (06:42)
[2017-08-04] MEDS: INSULIN LISPRO 100 UNITS/ML SUBCUT SCH ×4 (07:20→20:57)
[2017-08-04 07:40] LABS: HEMATOCRIT. 31.4 % (36.0-48.0); MEAN PLATELET VOLUME 7.8 fl (7.4-10.4); PLATELET 290 x1000/uL (130-400); RED CELL DISTRIBUTION WIDTH 17.3 % (11.6-14.6)
[2017-08-04] MEDS: DOCUSATE SODIUM 250MG CAPSULE PO SCH (09:00)
[2017-08-04] MEDS: BRIMONIDINE 0.2% OPHTH DROPS 5ML BOTHEYE SCH (09:51)
[2017-08-04] MEDS: TIMOLOL MALEATE 0.5% OPHTH DROPS 5ML EACHEYE SCH (09:52)
[2017-08-04] MEDS: LETAIRIS 10 MG PO SCH (09:52)
[2017-08-04] MEDS: FERROUS SULFATE 325MG TABLET PO SCH (09:54)
[2017-08-04] MEDS: FOLIC ACID/VITAMIN B COMP W-C TABLET PO SCH (09:54)
[2017-08-04] MEDS: INSULIN GLARGINE UD 100 UNITS/ML SYR SUBCUT SCH (09:54)
[2017-08-04] MEDS: BENAZEPRIL 20MG TABLET PO SCH (09:56)
[2017-08-04] MEDS: FUROSEMIDE 40MG/4ML VIAL IVP SCH (10:01)
[2017-08-04 11:09] LABS: PLATELET ESTIMATE NORMAL
[2017-08-04] MEDS: FUROSEMIDE 40MG TABLET PO SCH (17:09)
[2017-08-04] MEDS: ATORVASTATIN CALCIUM 10MG TABLET PO SCH (21:01)
[2017-08-04] MEDS: MONTELUKAST SODIUM 10MG TABLET PO SCH (21:01)
[2017-08-05] VITALS (15 sets, daily range): BP systolic 119–156; BP diastolic 57–97
[2017-08-05] MEDS: MEROPENEM 500 MG in SODIUM CHLORIDE 0.9% 50 ML IV SCH ×3 (01:58→17:14)
[2017-08-05] MEDS: IPRATROPIUM/ALBUTEROL 0.5-3(2.5)MG/3ML NEB HHN SCH ×4 (02:14→21:18)
[2017-08-05] MEDS: LEVOTHYROXINE SODIUM 125MCG TABLET PO SCH (05:33)
[2017-08-05] MEDS: APIXABAN 2.5 MG TABLET PO SCH ×2 (05:33→17:14)
[2017-08-05] MEDS: OMEPRAZOLE 20MG CAPSULE EXTENDED RELEASE PO SCH ×2 (05:33→22:04)
[2017-08-05] MEDS: BLOOD SUGAR DIAGNOSTIC STRIP TEST SCH ×4 (05:33→22:03)
[2017-08-05] MEDS: INSULIN LISPRO 100 UNITS/ML SUBCUT SCH ×4 (07:20→22:03)
[2017-08-05] MEDS: FERROUS SULFATE 325MG TABLET PO SCH (08:49)
[2017-08-05] MEDS: TIMOLOL MALEATE 0.5% OPHTH DROPS 5ML EACHEYE SCH (08:49)
[2017-08-05] MEDS: HYDROCODONE/ACETAMINOPHEN 5/325MG TABLET PO PRN (08:49)
[2017-08-05] MEDS: LETAIRIS 10 MG PO SCH (08:49)
[2017-08-05] MEDS: BENAZEPRIL 20MG TABLET PO SCH (08:49)
[2017-08-05] MEDS: FOLIC ACID/VITAMIN B COMP W-C TABLET PO SCH (08:49)
[2017-08-05] MEDS: BRIMONIDINE 0.2% OPHTH DROPS 5ML BOTHEYE SCH (08:50)
[2017-08-05] MEDS: FUROSEMIDE 40MG/4ML VIAL IVP SCH (08:50)
[2017-08-05] MEDS: DOCUSATE SODIUM 250MG CAPSULE PO SCH (09:00)
[2017-08-05] MEDS: INSULIN GLARGINE UD 100 UNITS/ML SYR SUBCUT SCH (10:07)
[2017-08-05] MEDS: LIDOCAINE 5% PATCH TOP SCH (12:40)
[2017-08-05] MEDS: ALPRAZOLAM 0.25 MG TABLET PO PRN ×2 (12:48→22:07)
[2017-08-05] MEDS: FUROSEMIDE 40MG TABLET PO SCH (17:14)
[2017-08-05] MEDS: LIDOCAINE HCL 4% CREAM 76GM TUBE TP SCH (17:14)
[2017-08-05] MEDS: MONTELUKAST SODIUM 10MG TABLET PO SCH (22:04)
[2017-08-05] MEDS: ATORVASTATIN CALCIUM 10MG TABLET PO SCH (22:04)
[2017-08-06] VITALS (9 sets, daily range): BP systolic 123–158; BP diastolic 61–94
[2017-08-06] MEDS: MEROPENEM 500 MG in SODIUM CHLORIDE 0.9% 50 ML IV SCH ×2 (00:26→09:55)
[2017-08-06] MEDS: IPRATROPIUM/ALBUTEROL 0.5-3(2.5)MG/3ML NEB HHN SCH ×4 (03:58→20:15)
[2017-08-06] MEDS: OMEPRAZOLE 20MG CAPSULE EXTENDED RELEASE PO SCH ×2 (06:11→20:32)
[2017-08-06] MEDS: APIXABAN 2.5 MG TABLET PO SCH (06:11)
[2017-08-06] MEDS: LEVOTHYROXINE SODIUM 125MCG TABLET PO SCH (06:11)
[2017-08-06] MEDS: HYDROCODONE/ACETAMINOPHEN 5/325MG TABLET PO PRN ×2 (06:13→22:33)
[2017-08-06] MEDS: LIDOCAINE HCL 4% CREAM 76GM TUBE TP SCH ×2 (06:17→17:08)
[2017-08-06] MEDS: BLOOD SUGAR DIAGNOSTIC STRIP TEST SCH ×4 (06:19→20:34)
[2017-08-06 06:52] LABS: HEMATOCRIT. 31.7 % (36.0-48.0); HEMOGLOBIN. 10.4 g/dL (12.0-16.0); MEAN CORPUSCULAR HEMOGLOBIN 27.7 pg (28.0-32.0); MEAN CORPUSCULAR VOLUME 84.4 fL (81.0-99.0); MEAN PLATELET VOLUME 8.1 fl (7.4-10.4); PLATELET 279 x1000/uL (130-400); RED BLOOD CELL COUNT 3.76 mill/uL (4.2-5.4); RED CELL DISTRIBUTION WIDTH 16.9 % (11.6-14.6)
[2017-08-06] MEDS: INSULIN LISPRO 100 UNITS/ML SUBCUT SCH ×4 (07:20→20:35)
[2017-08-06] MEDS: FUROSEMIDE 40MG/4ML VIAL IVP SCH (08:33)
[2017-08-06] MEDS: FERROUS SULFATE 325MG TABLET PO SCH (08:33)
[2017-08-06] MEDS: FOLIC ACID/VITAMIN B COMP W-C TABLET PO SCH (08:33)
[2017-08-06] MEDS: BENAZEPRIL 20MG TABLET PO SCH (08:33)
[2017-08-06] MEDS: BRIMONIDINE 0.2% OPHTH DROPS 5ML BOTHEYE SCH (08:34)
[2017-08-06] MEDS: TIMOLOL MALEATE 0.5% OPHTH DROPS 5ML EACHEYE SCH (08:34)
[2017-08-06] MEDS: LETAIRIS 10 MG PO SCH (08:34)
[2017-08-06] MEDS: DOCUSATE SODIUM 250MG CAPSULE PO SCH (08:36)
[2017-08-06] MEDS: LIDOCAINE 5% PATCH TOP SCH (08:37)
[2017-08-06] MEDS: ALPRAZOLAM 0.25 MG TABLET PO PRN ×2 (09:55→17:07)
[2017-08-06] MEDS: INSULIN GLARGINE UD 100 UNITS/ML SYR SUBCUT SCH (09:57)
[2017-08-06] MEDS: FUROSEMIDE 40MG TABLET PO SCH (17:07)
[2017-08-06] MEDS: APIXABAN 5 MG TABLET PO SCH (17:07)
[2017-08-06] MEDS: MEROPENEM 1,000 MG in SODIUM CHLORIDE 0.9% 100 ML IV SCH (17:08)
[2017-08-06 19:59] LABS: PLATELET ESTIMATE NORMAL
[2017-08-06] MEDS: ATORVASTATIN CALCIUM 10MG TABLET PO SCH (20:32)
[2017-08-06] MEDS: MONTELUKAST SODIUM 10MG TABLET PO SCH (20:32)
[2017-08-06] MEDS: GUAIFENESIN 200MG/10ML SUGAR FREE UDC PO PRN (20:32)
[2017-08-07] VITALS (9 sets, daily range): BP systolic 111–153; BP diastolic 47–90
[2017-08-07] MEDS: IPRATROPIUM/ALBUTEROL 0.5-3(2.5)MG/3ML NEB HHN SCH ×4 (01:00→20:05)
[2017-08-07] MEDS: MEROPENEM 1,000 MG in SODIUM CHLORIDE 0.9% 100 ML IV SCH ×3 (02:26→17:36)
[2017-08-07] MEDS: ALPRAZOLAM 0.25 MG TABLET PO PRN ×2 (02:34→12:27)
[2017-08-07] MEDS: APIXABAN 5 MG TABLET PO SCH ×2 (06:10→17:36)
[2017-08-07] MEDS: LEVOTHYROXINE SODIUM 125MCG TABLET PO SCH (06:10)
[2017-08-07] MEDS: OMEPRAZOLE 20MG CAPSULE EXTENDED RELEASE PO SCH ×2 (06:10→22:31)
[2017-08-07] MEDS: BLOOD SUGAR DIAGNOSTIC STRIP TEST SCH ×4 (06:11→21:00)
[2017-08-07] MEDS: LIDOCAINE HCL 4% CREAM 76GM TUBE TP SCH ×2 (06:11→17:37)
[2017-08-07] MEDS: INSULIN LISPRO 100 UNITS/ML SUBCUT SCH ×5 (06:55→22:47)
[2017-08-07] MEDS: FOLIC ACID/VITAMIN B COMP W-C TABLET PO SCH (08:57)
[2017-08-07] MEDS: FERROUS SULFATE 325MG TABLET PO SCH (08:57)
[2017-08-07] MEDS: DOCUSATE SODIUM 250MG CAPSULE PO SCH (08:57)
[2017-08-07] MEDS: HYDROCODONE/ACETAMINOPHEN 5/325MG TABLET PO PRN (08:58)
[2017-08-07] MEDS: FUROSEMIDE 40MG/4ML VIAL IVP SCH (08:59)
[2017-08-07] MEDS: BENAZEPRIL 20MG TABLET PO SCH (09:02)
[2017-08-07] MEDS: BRIMONIDINE 0.2% OPHTH DROPS 5ML BOTHEYE SCH (09:58)
[2017-08-07] MEDS: TIMOLOL MALEATE 0.5% OPHTH DROPS 5ML EACHEYE SCH (09:58)
[2017-08-07] MEDS: LIDOCAINE 5% PATCH TOP SCH (09:58)
[2017-08-07] MEDS: LETAIRIS 10 MG PO SCH (09:59)
[2017-08-07] MEDS: INSULIN GLARGINE UD 100 UNITS/ML SYR SUBCUT SCH (10:02)
[2017-08-07] MEDS: FUROSEMIDE 40MG TABLET PO SCH (17:36)
[2017-08-07] MEDS: ATORVASTATIN CALCIUM 10MG TABLET PO SCH (20:49)
[2017-08-07] MEDS: GUAIFENESIN 200MG/10ML SUGAR FREE UDC PO PRN (20:49)
[2017-08-07] MEDS: MONTELUKAST SODIUM 10MG TABLET PO SCH (22:31)
[2017-08-08 00:35] VITALS: BP 137/66
[2017-08-08] MEDS: HYDROCODONE/ACETAMINOPHEN 5/325MG TABLET PO PRN ×2 (00:35→10:56)
[2017-08-08] MEDS: IPRATROPIUM/ALBUTEROL 0.5-3(2.5)MG/3ML NEB HHN SCH ×4 (00:43→21:17)
[2017-08-08] MEDS: MEROPENEM 1,000 MG in SODIUM CHLORIDE 0.9% 100 ML IV SCH ×3 (01:06→17:45)
[2017-08-08 04:00] VITALS: BP 123/52
[2017-08-08] MEDS: APIXABAN 5 MG TABLET PO SCH ×2 (05:41→17:44)
[2017-08-08] MEDS: LIDOCAINE HCL 4% CREAM 76GM TUBE TP SCH ×2 (05:43→17:45)
[2017-08-08 07:14] LABS: BASOPHILS % 0.2 % (0.0-2.0); EOSINOPHILS % 0.8 % (0.0-5.0); HEMATOCRIT. 31.4 % (36.0-48.0); LYMPHOCYTES % 9.3 % (20.0-50.0); MEAN CORPUSCULAR HEMOGLOBIN 27.1 pg (28.0-32.0); MEAN PLATELET VOLUME 8.1 fl (7.4-10.4); MONOCYTES % 12.5 % (2.0-8.0); NEUTROPHILS % 77.2 % (40.0-76.0); PLATELET 294 x1000/uL (130-400); RED CELL DISTRIBUTION WIDTH 17.2 % (11.6-14.6)
[2017-08-08] MEDS: INSULIN LISPRO 100 UNITS/ML SUBCUT SCH ×4 (07:28→20:15)
[2017-08-08] MEDS: BLOOD SUGAR DIAGNOSTIC STRIP TEST SCH ×4 (07:28→20:14)
[2017-08-08 08:00] VITALS: BP 126/82
[2017-08-08] MEDS: LETAIRIS 10 MG PO SCH (08:37)
[2017-08-08] MEDS: TIMOLOL MALEATE 0.5% OPHTH DROPS 5ML EACHEYE SCH (08:38)
[2017-08-08] MEDS: BRIMONIDINE 0.2% OPHTH DROPS 5ML BOTHEYE SCH (08:39)
[2017-08-08] MEDS: LIDOCAINE 5% PATCH TOP SCH (08:49)
[2017-08-08] MEDS: FERROUS SULFATE 325MG TABLET PO SCH (08:50)
[2017-08-08] MEDS: LEVOTHYROXINE SODIUM 125MCG TABLET PO SCH (08:50)
[2017-08-08] MEDS: DOCUSATE SODIUM 250MG CAPSULE PO SCH (08:50)
[2017-08-08] MEDS: FOLIC ACID/VITAMIN B COMP W-C TABLET PO SCH (08:50)
[2017-08-08] MEDS: OMEPRAZOLE 20MG CAPSULE EXTENDED RELEASE PO SCH ×2 (08:50→20:14)
[2017-08-08] MEDS: FUROSEMIDE 40MG/4ML VIAL IVP SCH (08:50)
[2017-08-08] MEDS: BENAZEPRIL 20MG TABLET PO SCH (08:50)
[2017-08-08] MEDS: INSULIN GLARGINE UD 100 UNITS/ML SYR SUBCUT SCH (09:41)
[2017-08-08 11:00] VITALS: BP 108/51
[2017-08-08 16:00] VITALS: BP 130/62
[2017-08-08] MEDS: FUROSEMIDE 40MG TABLET PO SCH (17:44)
[2017-08-08 20:00] VITALS: BP 137/65
[2017-08-08] MEDS: ATORVASTATIN CALCIUM 10MG TABLET PO SCH (20:14)
[2017-08-08] MEDS: MONTELUKAST SODIUM 10MG TABLET PO SCH (20:14)
[2017-08-09 00:01] VITALS: BP 112/52
[2017-08-09] MEDS: MEROPENEM 1,000 MG in SODIUM CHLORIDE 0.9% 100 ML IV SCH ×3 (01:17→17:56)
[2017-08-09] MEDS: IPRATROPIUM/ALBUTEROL 0.5-3(2.5)MG/3ML NEB HHN SCH ×3 (02:13→15:29)
[2017-08-09 04:00] VITALS: BP 127/61
[2017-08-09] MEDS: LIDOCAINE 5% PATCH TOP SCH (06:52)
[2017-08-09] MEDS: LEVOTHYROXINE SODIUM 125MCG TABLET PO SCH (06:52)
[2017-08-09] MEDS: APIXABAN 5 MG TABLET PO SCH ×2 (06:52→17:59)
[2017-08-09] MEDS: BLOOD SUGAR DIAGNOSTIC STRIP TEST SCH ×3 (06:54→17:58)
[2017-08-09] MEDS: LIDOCAINE HCL 4% CREAM 76GM TUBE TP SCH ×2 (06:54→18:00)
[2017-08-09] MEDS: OMEPRAZOLE 20MG CAPSULE EXTENDED RELEASE PO SCH (06:56)
[2017-08-09] MEDS: HYDROCODONE/ACETAMINOPHEN 5/325MG TABLET PO PRN ×2 (07:01→16:46)
[2017-08-09 07:18] LABS: BASOPHILS % 0.2 % (0.0-2.0); EOSINOPHILS % 1.3 % (0.0-5.0); HEMATOCRIT. 31.1 % (36.0-48.0); HEMOGLOBIN. 9.8 g/dL (12.0-16.0); MEAN CORPUSCULAR HEMOGLOBIN 27.1 pg (28.0-32.0); MEAN CORPUSCULAR VOLUME 85.7 fL (81.0-99.0); MEAN PLATELET VOLUME 8.2 fl (7.4-10.4); MONOCYTES % 11.6 % (2.0-8.0); NEUTROPHILS % 75.9 % (40.0-76.0); PLATELET 291 x1000/uL (130-400); RED BLOOD CELL COUNT 3.63 mill/uL (4.2-5.4); RED CELL DISTRIBUTION WIDTH 17.3 % (11.6-14.6)
[2017-08-09 07:42] LABS: CHLORIDE 107 mEq/L (98-107)
[2017-08-09 08:00] VITALS: BP 154/66
[2017-08-09] MEDS: INSULIN LISPRO 100 UNITS/ML SUBCUT SCH ×3 (08:10→18:00)
[2017-08-09] MEDS: BRIMONIDINE 0.2% OPHTH DROPS 5ML BOTHEYE SCH (08:25)
[2017-08-09] MEDS: TIMOLOL MALEATE 0.5% OPHTH DROPS 5ML EACHEYE SCH (08:25)
[2017-08-09] MEDS: FUROSEMIDE 40MG/4ML VIAL IVP SCH (08:26)
[2017-08-09] MEDS: LETAIRIS 10 MG PO SCH (08:26)
[2017-08-09] MEDS: FERROUS SULFATE 325MG TABLET PO SCH (08:27)
[2017-08-09] MEDS: FOLIC ACID/VITAMIN B COMP W-C TABLET PO SCH (08:27)
[2017-08-09] MEDS: DOCUSATE SODIUM 250MG CAPSULE PO SCH (08:28)
[2017-08-09] MEDS: BENAZEPRIL 20MG TABLET PO SCH (08:34)
[2017-08-09] MEDS: INSULIN GLARGINE UD 100 UNITS/ML SYR SUBCUT SCH (09:53)
[2017-08-09 12:00] VITALS: BP 127/71
[2017-08-09 16:00] VITALS: BP 140/61
[2017-08-09] MEDS: FUROSEMIDE 40MG TABLET PO SCH (17:55)
[2017-08-09 18:18] VITALS: BP 140/61
== END 2017-08-09 19:04 | disposition home or self-care (01) | DRG 291 ==
LOC: ER 07:42 → 3WST 10:54 → EDBEDREQ 10:59 → EDBEDREQSVC 10:59 → ENRESERV 13:27 → 7WST 08-07 08:09
PROVIDERS: ADMIT Internal Medicine Geriatric Medicine; ATTEND Internal Medicine Geriatric Medicine
PROC: 5A09357 Assistance with Respiratory Ventilation, Less than 24 Consecutive Hours, Continuous Positive Airway Pressure (ICD-10-PCS; 2017-07-31)
PROC: 02HV33Z Insertion of Infusion Device into Superior Vena Cava, Percutaneous Approach (ICD-10-PCS; 2017-08-01)
PROC: B548ZZA Ultrasonography of Superior Vena Cava, Guidance (ICD-10-PCS; 2017-08-01)
PROC: 5A09357 Assistance with Respiratory Ventilation, Less than 24 Consecutive Hours, Continuous Positive Airway Pressure (ICD-10-PCS; 2017-08-01)
PROC: 5A09357 Assistance with Respiratory Ventilation, Less than 24 Consecutive Hours, Continuous Positive Airway Pressure (ICD-10-PCS; 2017-08-02)
PROC: 30233N1 Transfusion of Nonautologous Red Blood Cells into Peripheral Vein, Percutaneous Approach (ICD-10-PCS; principal; 2017-08-03)
PROC: 5A09357 Assistance with Respiratory Ventilation, Less than 24 Consecutive Hours, Continuous Positive Airway Pressure (ICD-10-PCS; 2017-08-03)
PROC: 5A09357 Assistance with Respiratory Ventilation, Less than 24 Consecutive Hours, Continuous Positive Airway Pressure (ICD-10-PCS; 2017-08-04)
PROC: 5A09357 Assistance with Respiratory Ventilation, Less than 24 Consecutive Hours, Continuous Positive Airway Pressure (ICD-10-PCS; 2017-08-05)
PROC: 5A09357 Assistance with Respiratory Ventilation, Less than 24 Consecutive Hours, Continuous Positive Airway Pressure (ICD-10-PCS; 2017-08-06)
PROC: 5A09357 Assistance with Respiratory Ventilation, Less than 24 Consecutive Hours, Continuous Positive Airway Pressure (ICD-10-PCS; 2017-08-07)
PROC: 5A09357 Assistance with Respiratory Ventilation, Less than 24 Consecutive Hours, Continuous Positive Airway Pressure (ICD-10-PCS; 2017-08-08)
DX: I13.0 Hypertensive heart and chronic kidney disease with heart failure and stage 1 through stage 4 chronic kidney disease, or unspecified chronic kidney disease (principal); J96.22 Acute and chronic respiratory failure with hypercapnia; J96.21 Acute and chronic respiratory failure with hypoxia; G93.40 Encephalopathy, unspecified; J18.9 Pneumonia, unspecified organism; E46 Unspecified protein-calorie malnutrition; E11.22 Type 2 diabetes mellitus with diabetic chronic kidney disease; E11.42 Type 2 diabetes mellitus with diabetic polyneuropathy; E11.65 Type 2 diabetes mellitus with hyperglycemia; I50.43 Acute on chronic combined systolic (congestive) and diastolic (congestive) heart failure; N39.0 Urinary tract infection, site not specified; J98.11 Atelectasis; Z68.42 Body mass index [BMI] 45.0-49.9, adult; J44.0 Chronic obstructive pulmonary disease with (acute) lower respiratory infection; I27.20 Pulmonary hypertension, unspecified; E66.01 Morbid (severe) obesity due to excess calories; I48.2 Chronic atrial fibrillation; R62.7 Adult failure to thrive; D50.9 Iron deficiency anemia, unspecified; F32.9 Major depressive disorder, single episode, unspecified; F41.9 Anxiety disorder, unspecified; M19.90 Unspecified osteoarthritis, unspecified site; M48.00 Spinal stenosis, site unspecified; G47.33 Obstructive sleep apnea (adult) (pediatric); K44.9 Diaphragmatic hernia without obstruction or gangrene; B96.20 Unspecified Escherichia coli [E. coli] as the cause of diseases classified elsewhere; E03.9 Hypothyroidism, unspecified; N18.3 Chronic kidney disease, stage 3 (moderate); H40.9 Unspecified glaucoma; Z16.12 Extended spectrum beta lactamase (ESBL) resistance; Z86.010 Personal history of colon polyps; Z87.891 Personal history of nicotine dependence; Z79.899 Other long term (current) drug therapy; Z79.4 Long term (current) use of insulin; Z87.01 Personal history of pneumonia (recurrent)
CPT/HCPCS: 36415; 36569; 36600; 71045; 76937; 80048; 80053; 82270; 82375; 82553; 82805; 82962; 83036; 83605; 83690; 83880; 84443; 84484; 85025; 85610; 86850; 86900; 86920; 87040; 87086; 87186; 93005; 94640; 94660; 96365; 96366; 96368; 96375; 97116; 97162; 97530; 99291; C1725; J0280; J0456; J1815; J1940; J1956; J2185; J2270; J2405; J2543; J2920; J3370; J3490; J7050; J7060; J7620; P9016; A4315

== ENCOUNTER 2018-06-02 20:08 | Inpatient (IN) | payer MEDICARE, MEDICAID ==
[~2018-06-02] VITALS: Ht 157.5 cm; Wt 117.5 kg
[~2018-06-02 20:08] MED LIST changes: +BENA20TA10 PO; -BENA20TA3 PO; -SPIR25TA4 PO; +SPIR25TA6 PO
[2018-06-02] MEDS ORDERED: SODIUM CHLORIDE 0.9% 1,000 ML IV ONE (20:48)
[2018-06-02] MEDS ORDERED: ONDANSETRON 4MG ODT PO ONE (21:00)
[2018-06-02] MEDS ORDERED: KETOROLAC 60MG/2ML VIAL IM ONE (21:00)
[2018-06-02] MEDS ORDERED: MORPHINE SULFATE 10 MG/ML CPJ IM ONE (21:00)
[2018-06-02] MEDS ORDERED: MORPHINE SULFATE 4 MG/ML CPJ (NOT FOR IM USE) IV ONE (21:15)
[2018-06-02] MEDS ORDERED: KETOROLAC 30MG/ML VIAL IV ONE (21:15)
[2018-06-02] MEDS ORDERED: ONDANSETRON HCL 4MG/2ML INJ IV ONE (21:15)
[2018-06-02 21:33] LABS: BASOPHILS % 0.3 % (0.0-2.0); EOSINOPHILS % 0.5 % (0.0-5.0); HEMATOCRIT. 27.2 % (36.0-48.0); HEMOGLOBIN. 8.3 g/dL (12.0-16.0); LYMPHOCYTES % 8.8 % (20.0-50.0); MEAN CORPUSCULAR HEMOGLOBIN 24.9 pg (28.0-32.0); MEAN CORPUSCULAR VOLUME 81.8 fL (81.0-99.0); MONOCYTES % 10.8 % (2.0-8.0); NEUTROPHILS % 79.6 % (40.0-76.0); PLATELET 263 x1000/uL (130-400); RED BLOOD CELL COUNT 3.32 mill/uL (4.2-5.4); RED CELL DISTRIBUTION WIDTH 18.6 % (11.6-14.6)
[2018-06-02 21:36] LABS: CHLORIDE 112 mEq/L (98-107)
[2018-06-02] MEDS ORDERED: MORPHINE SULFATE 4 MG/ML CPJ (NOT FOR IM USE) IV STA (22:34)
[2018-06-02] MEDS ORDERED: ONDANSETRON HCL 4MG/2ML INJ IV STA (22:34)
[2018-06-02] MEDS ORDERED: ACETAMINOPHEN 325MG TABLET PO PRN (22:45)
[2018-06-02] MEDS ORDERED: ONDANSETRON HCL 4MG/2ML INJ IV PRN (22:45)
[2018-06-02] MEDS ORDERED: SODIUM CHLORIDE 0.45% 1,000 ML IV SCH (22:45)
[2018-06-02] MEDS: CEFTRIAXONE 1 G PREMIX 50 ML IV ONE ×2 (22:48→23:10)
[2018-06-03 00:38] LABS: CLARITY URINE CLEAR (CLEAR); COLOR URINE YELLOW (YELLOW); KETONES URINE NEGATIVE (NEGATIVE); LEUKOCYTE ESTERASE URINE 1+ (NEGATIVE); NITRITE URINE POSITIVE (NEGATIVE); OCCULT BLOOD URINE NEGATIVE (NEGATIVE); PROTEIN URINE NEGATIVE (NEGATIVE); SPECIFIC GRAVITY URINE 1.011 (1.005-1.030); UROBILINOGEN URINE 0.2 E.U./dL (0.2-1.0)
[2018-06-03] MEDS: HYDROCODONE/ACETAMINOPHEN 5/325MG TABLET PO PRN (03:12)
[2018-06-03 05:49] LABS: EOSINOPHILS % 0.7 % (0.0-5.0); HEMATOCRIT. 29.5 % (36.0-48.0); HEMOGLOBIN. 8.8 g/dL (12.0-16.0); LYMPHOCYTES % 12.9 % (20.0-50.0); MEAN CORPUSCULAR HEMOGLOBIN 24.6 pg (28.0-32.0); MEAN CORPUSCULAR VOLUME 82.9 fL (81.0-99.0); MEAN PLATELET VOLUME 7.7 fl (7.4-10.4); MONOCYTES % 11.7 % (2.0-8.0); NEUTROPHILS % 73.7 % (40.0-76.0); PLATELET 289 x1000/uL (130-400); RED BLOOD CELL COUNT 3.56 mill/uL (4.2-5.4); RED CELL DISTRIBUTION WIDTH 18.7 % (11.6-14.6)
[2018-06-03 08:45] VITALS: BP 144/64
[2018-06-03] MEDS ORDERED: INSULIN GLARGINE UD 100 UNITS/ML SYR SUBCUT SCH (10:00)
[2018-06-03] MEDS ORDERED: ENOXAPARIN 40MG/0.4ML SYR SUBCUT SCH (10:00)
[2018-06-03] MEDS ORDERED: AMBR10TA3 MT (10:22)
[2018-06-03] MEDS ORDERED: LIDOCAINE HCL 1% 20ML VIAL (Pyxis) INJ ONE (10:55)
[2018-06-03 12:40] VITALS: BP 160/68
[2018-06-03] MEDS: INSULIN LISPRO 100 UNITS/ML SUBCUT SCH ×3 (12:40→21:00)
[2018-06-03] MEDS: BLOOD SUGAR DIAGNOSTIC STRIP TEST SCH ×3 (12:43→21:25)
[2018-06-03] MEDS: BRIMONIDINE 0.2% OPHTH DROPS 5ML BOTHEYE SCH (12:49)
[2018-06-03] MEDS: CLONIDINE 0.1MG TABLET PO PRN (12:50)
[2018-06-03] MEDS: LEVOTHYROXINE SODIUM 100MCG TABLET PO SCH (12:50)
[2018-06-03] MEDS: ENOXAPARIN 30MG/0.3ML SYR SUBCUT SCH (12:51)
[2018-06-03] MEDS: MORPHINE SULFATE 4 MG/ML CPJ (NOT FOR IM USE) IV PRN ×2 (12:56→22:10)
[2018-06-03] MEDS ORDERED: APIX5TAB MT (14:01)
[2018-06-03 15:48] VITALS: BP 131/97
[2018-06-03] MEDS: IPRATROPIUM/ALBUTEROL 0.5-3(2.5)MG/3ML NEB INH PRN ×2 (16:55→20:07)
[2018-06-03] MEDS: MONTELUKAST SODIUM 10MG TABLET PO SCH (17:26)
[2018-06-03 18:37] LABS: BG BASE EXCESS 0.4 mmol/L (-2.0-2.0); BG BILEVEL POS AIRWAY PRESSURE 15/5; BG CARBOXYHEMOGLOBIN 1.2 % (0.5-1.5); BG DEOXYHEMOGLOBIN 5.8 % (0.0-5.0); BG FRACTION INSPIRED OXYGEN 40; BG HCO3 ACT 28.5 mmol/L (22.0-26.0); BG OXYGEN SATURATION 94.1 % (92.0-98.5); BG PCO2 67.9 mmHg (35.0-45.0); BG PH 7.241 (7.350-7.450); BG PO2 81.1 mmHg (75.0-100.0); BG SAMPLE SITE LEFT RADIAL; BG TOTAL HEMOGLOBIN 8.8 g/dL (12.0-18.0); BG VENT MODE MASK - BIPAP; BG VENT RATE 14 set
[2018-06-03 19:56] LABS: BG BASE EXCESS 0.7 mmol/L (-2.0-2.0); BG BILEVEL POS AIRWAY PRESSURE 15/5; BG CARBOXYHEMOGLOBIN 1.2 % (0.5-1.5); BG DEOXYHEMOGLOBIN 4.2 % (0.0-5.0); BG FRACTION INSPIRED OXYGEN 40; BG HCO3 ACT 28.2 mmol/L (22.0-26.0); BG METHEMOGLOBIN 0.5 % (0.0-1.5); BG OXYGEN SATURATION 95.7 % (92.0-98.5); BG OXYHEMOGLOBIN 94.1 % (94.0-97.0); BG PH 7.275 (7.350-7.450); BG PO2 91.6 mmHg (75.0-100.0); BG SAMPLE SITE RIGHT RADIAL; BG TOTAL HEMOGLOBIN 8.8 g/dL (12.0-18.0); BG VENT MODE MASK - BIPAP
[2018-06-03 20:00] VITALS: BP 130/68
[2018-06-03] MEDS ORDERED: CEFTRIAXONE 1 G PREMIX 50 ML IV SCH (21:00)
[2018-06-03] MEDS ORDERED: MORPHINE SULFATE 4 MG/ML CPJ (NOT FOR IM USE) IV PRN (23:00)
[2018-06-04] VITALS (11 sets, daily range): BP systolic 129–158; BP diastolic 54–85
[2018-06-04] MEDS: IPRATROPIUM/ALBUTEROL 0.5-3(2.5)MG/3ML NEB HHN SCH ×6 (01:08→20:27)
[2018-06-04] MEDS: LEVOTHYROXINE SODIUM 100MCG TABLET PO SCH (06:35)
[2018-06-04] MEDS: BLOOD SUGAR DIAGNOSTIC STRIP TEST SCH ×4 (06:40→21:34)
[2018-06-04] MEDS: INSULIN LISPRO 100 UNITS/ML SUBCUT SCH ×4 (06:40→21:00)
[2018-06-04 07:27] LABS: BASOPHILS % 0.1 % (0.0-2.0); EOSINOPHILS % 0.6 % (0.0-5.0); HEMOGLOBIN. 7.6 g/dL (12.0-16.0); LYMPHOCYTES % 9.7 % (20.0-50.0); MEAN CORPUSCULAR HEMOGLOBIN 24.9 pg (28.0-32.0); MEAN CORPUSCULAR VOLUME 82.1 fL (81.0-99.0); MEAN PLATELET VOLUME 7.9 fl (7.4-10.4); MONOCYTES % 10.6 % (2.0-8.0); PLATELET 240 x1000/uL (130-400); RED BLOOD CELL COUNT 3.05 mill/uL (4.2-5.4); RED CELL DISTRIBUTION WIDTH 18.8 % (11.6-14.6)
[2018-06-04] MEDS: BRIMONIDINE 0.2% OPHTH DROPS 5ML BOTHEYE SCH (09:05)
[2018-06-04] MEDS: ENOXAPARIN 30MG/0.3ML SYR SUBCUT SCH (09:05)
[2018-06-04 09:36] LABS: BG BASE EXCESS 0.9 mmol/L (-2.0-2.0); BG CARBOXYHEMOGLOBIN 1.5 % (0.5-1.5); BG DEOXYHEMOGLOBIN 14.7 % (0.0-5.0); BG FRACTION INSPIRED OXYGEN 32; BG HCO3 ACT 28.3 mmol/L (22.0-26.0); BG METHEMOGLOBIN 0.3 % (0.0-1.5); BG OXYHEMOGLOBIN 83.5 % (94.0-97.0); BG PCO2 63.1 mmHg (35.0-45.0); BG PO2 53.5 mmHg (75.0-100.0); BG SAMPLE SITE RIGHT RADIAL; BG TOTAL HEMOGLOBIN 8.3 g/dL (12.0-18.0); BG VENT MODE NASAL CANNULA
[2018-06-04] MEDS: OMEPRAZOLE 20MG CAPSULE EXTENDED RELEASE PO SCH (11:08)
[2018-06-04] MEDS: HYDROCODONE/ACETAMINOPHEN 5/325MG TABLET PO PRN ×2 (11:08→17:52)
[2018-06-04 11:22] LABS: HEMATOCRIT 23.6 % (36.0-48.0)
[2018-06-04 11:29] LABS: TOTAL IRON BINDING CAPACITY 297 ug/dL (250-450)
[2018-06-04 11:45] LABS: FOLIC ACID (FOLATE) SERUM 8.3 ng/mL (>5.38)
[2018-06-04] MEDS: FUROSEMIDE 40MG TABLET PO SCH (11:49)
[2018-06-04] MEDS: INSULIN GLARGINE UD 100 UNITS/ML SYR SUBCUT SCH (11:51)
[2018-06-04 12:48] LABS: HEMATOCRIT 24.5 % (36.0-48.0); HEMOGLOBIN 7.2 g/dL (12.0-16.0)
[2018-06-04 12:57] LABS: PARTIAL THROMBOPLASTIN TIME 22.3 sec (23.4-31.0); PROTHROMBIN TIME 10.5 sec (9.1-11.1)
[2018-06-04] MEDS ORDERED: CEFTRIAXONE 1 G PREMIX 50 ML IV SCH (14:00)
[2018-06-04] MEDS: ALPRAZOLAM 0.25 MG TABLET PO PRN ×2 (14:15→21:16)
[2018-06-04] MEDS ORDERED: FUROSEMIDE 20MG/2ML VIAL IV NR (14:30)
[2018-06-04] MEDS ORDERED: LIDOCAINE HCL/PF 1% 2ML VIAL ONE (14:42)
[2018-06-04] MEDS: MONTELUKAST SODIUM 10MG TABLET PO SCH (17:51)
[2018-06-04 19:25] LABS: HEMATOCRIT 24.7 % (36.0-48.0); HEMOGLOBIN 7.4 g/dL (12.0-16.0)
[2018-06-04] MEDS: CEFTRIAXONE 1 G PREMIX 50 ML IV SCH (21:34)
[2018-06-04 23:34] LABS: HEMATOCRIT 26.9 % (36.0-48.0); HEMOGLOBIN 8.3 g/dL (12.0-16.0)
[2018-06-04 23:43] LABS: PROTHROMBIN TIME 10.5 sec (9.1-11.1)
[2018-06-05] VITALS: BP 140/59
[2018-06-05] MEDS: IPRATROPIUM/ALBUTEROL 0.5-3(2.5)MG/3ML NEB HHN SCH ×6 (00:13→20:27)
[2018-06-05] MEDS: HYDROCODONE/ACETAMINOPHEN 5/325MG TABLET PO PRN ×4 (00:35→22:27)
[2018-06-05 04:00] VITALS: BP 134/54
[2018-06-05] MEDS: LEVOTHYROXINE SODIUM 100MCG TABLET PO SCH (06:10)
[2018-06-05] MEDS: OMEPRAZOLE 20MG CAPSULE EXTENDED RELEASE PO SCH (06:10)
[2018-06-05] MEDS: INSULIN LISPRO 100 UNITS/ML SUBCUT SCH ×4 (06:12→20:53)
[2018-06-05] MEDS: BLOOD SUGAR DIAGNOSTIC STRIP TEST SCH ×4 (06:12→20:53)
[2018-06-05 08:00] VITALS: BP 155/67
[2018-06-05] MEDS ORDERED: LACTULOSE 20G/30ML UDC PO NR (08:00)
[2018-06-05] MEDS: DOCUSATE SODIUM 250MG CAPSULE PO SCH (08:56)
[2018-06-05] MEDS: FUROSEMIDE 40MG TABLET PO SCH (08:57)
[2018-06-05] MEDS: ALPRAZOLAM 0.25 MG TABLET PO PRN ×2 (09:21→18:28)
[2018-06-05 09:25] LABS: BASOPHILS % 0.2 % (0.0-2.0); EOSINOPHILS % 0.6 % (0.0-5.0); HEMATOCRIT. 26.7 % (36.0-48.0); HEMOGLOBIN. 8.2 g/dL (12.0-16.0); LYMPHOCYTES % 7.3 % (20.0-50.0); MEAN CORPUSCULAR HEMOGLOBIN 24.7 pg (28.0-32.0); MEAN CORPUSCULAR VOLUME 80.4 fL (81.0-99.0); MEAN PLATELET VOLUME 7.7 fl (7.4-10.4); MONOCYTES % 9.9 % (2.0-8.0); PLATELET 230 x1000/uL (130-400); RED BLOOD CELL COUNT 3.33 mill/uL (4.2-5.4); RED CELL DISTRIBUTION WIDTH 18.1 % (11.6-14.6)
[2018-06-05 11:40] LABS: BG BASE EXCESS 0.9 mmol/L (-2.0-2.0); BG DEOXYHEMOGLOBIN 7.5 % (0.0-5.0); BG FRACTION INSPIRED OXYGEN 32; BG HCO3 ACT 26.5 mmol/L (22.0-26.0); BG METHEMOGLOBIN 0.2 % (0.0-1.5); BG OXYGEN SATURATION 92.4 % (92.0-98.5); BG OXYHEMOGLOBIN 91.3 % (94.0-97.0); BG PCO2 47.3 mmHg (35.0-45.0); BG PH 7.367 (7.350-7.450); BG PO2 66.2 mmHg (75.0-100.0); BG SAMPLE SITE LEFT RADIAL; BG TOTAL HEMOGLOBIN 9.2 g/dL (12.0-18.0); BG VENT MODE NASAL CANNULA
[2018-06-05 14:00] VITALS: BP 169/62
[2018-06-05] MEDS: ENOXAPARIN 30MG/0.3ML SYR SUBCUT SCH (14:07)
[2018-06-05] MEDS: BRIMONIDINE 0.2% OPHTH DROPS 5ML BOTHEYE SCH (14:16)
[2018-06-05] MEDS: FERROUS SULFATE 325MG TABLET PO SCH ×2 (14:16→19:02)
[2018-06-05 16:00] VITALS: BP 137/66
[2018-06-05] MEDS: INSULIN GLARGINE UD 100 UNITS/ML SYR SUBCUT SCH (18:27)
[2018-06-05] MEDS: MONTELUKAST SODIUM 10MG TABLET PO SCH (18:28)
[2018-06-05 20:00] VITALS: BP 160/68
[2018-06-05] MEDS: CEFTRIAXONE 1 G PREMIX 50 ML IV SCH (20:55)
[2018-06-05] MEDS ORDERED: LACTULOSE 20G/30ML UDC PO PRN (21:00)
[2018-06-06] VITALS (8 sets, daily range): BP systolic 134–159; BP diastolic 54–75
[2018-06-06] MEDS: IPRATROPIUM/ALBUTEROL 0.5-3(2.5)MG/3ML NEB HHN SCH ×6 (00:31→20:44)
[2018-06-06] MEDS: HYDROCODONE/ACETAMINOPHEN 5/325MG TABLET PO PRN ×3 (05:08→18:10)
[2018-06-06 06:22] LABS: BASOPHILS % 0.1 % (0.0-2.0); EOSINOPHILS % 1.3 % (0.0-5.0); HEMATOCRIT. 27.4 % (36.0-48.0); HEMOGLOBIN. 8.6 g/dL (12.0-16.0); LYMPHOCYTES % 9.6 % (20.0-50.0); MEAN CORPUSCULAR HEMOGLOBIN 24.7 pg (28.0-32.0); MEAN CORPUSCULAR VOLUME 78.5 fL (81.0-99.0); MONOCYTES % 11.6 % (2.0-8.0); NEUTROPHILS % 77.4 % (40.0-76.0); PLATELET 246 x1000/uL (130-400); RED BLOOD CELL COUNT 3.49 mill/uL (4.2-5.4); RED CELL DISTRIBUTION WIDTH 17.8 % (11.6-14.6)
[2018-06-06] MEDS: LEVOTHYROXINE SODIUM 100MCG TABLET PO SCH (06:26)
[2018-06-06] MEDS: OMEPRAZOLE 20MG CAPSULE EXTENDED RELEASE PO SCH (06:26)
[2018-06-06] MEDS: INSULIN LISPRO 100 UNITS/ML SUBCUT SCH ×4 (06:28→20:24)
[2018-06-06] MEDS: BLOOD SUGAR DIAGNOSTIC STRIP TEST SCH ×4 (06:28→20:24)
[2018-06-06 06:47] LABS: CHLORIDE 105 mEq/L (98-107)
[2018-06-06] MEDS: DOCUSATE SODIUM 250MG CAPSULE PO SCH (09:00)
[2018-06-06] MEDS: FERROUS SULFATE 325MG TABLET PO SCH ×3 (09:42→18:11)
[2018-06-06] MEDS: BRIMONIDINE 0.2% OPHTH DROPS 5ML BOTHEYE SCH (09:42)
[2018-06-06] MEDS: FUROSEMIDE 40MG TABLET PO SCH (09:42)
[2018-06-06] MEDS: ALPRAZOLAM 0.25 MG TABLET PO PRN ×2 (09:49→16:11)
[2018-06-06 12:14] LABS: BG BASE EXCESS 4.1 mmol/L (-2.0-2.0); BG CARBOXYHEMOGLOBIN 0.6 % (0.5-1.5); BG DEOXYHEMOGLOBIN 4.8 % (0.0-5.0); BG FRACTION INSPIRED OXYGEN 32; BG HCO3 ACT 29.2 mmol/L (22.0-26.0); BG METHEMOGLOBIN 0.3 % (0.0-1.5); BG OXYGEN SATURATION 95.2 % (92.0-98.5); BG OXYHEMOGLOBIN 94.3 % (94.0-97.0); BG PO2 78.3 mmHg (75.0-100.0); BG SAMPLE SITE RIGHT RADIAL; BG TOTAL HEMOGLOBIN 9.8 g/dL (12.0-18.0); BG VENT MODE NASAL CANNULA
[2018-06-06] MEDS: BUDESONIDE 0.5MG/2ML NEB HHN SCH ×2 (12:36→20:44)
[2018-06-06] MEDS ORDERED: LIDOCAINE HCL/PF 1% 2ML VIAL ONE (14:32)
[2018-06-06] MEDS: ENOXAPARIN 40MG/0.4ML SYR SUBCUT SCH (16:06)
[2018-06-06] MEDS: LETAIRIS 10MG TABLET PO SCH (16:41)
[2018-06-06] MEDS: MONTELUKAST SODIUM 10MG TABLET PO SCH (18:11)
[2018-06-06] MEDS: INSULIN GLARGINE UD 100 UNITS/ML SYR SUBCUT SCH (18:44)
[2018-06-06] MEDS: NITROFURANTOIN 100MG M/M CAPSULE PO SCH (21:10)
[2018-06-07] VITALS: BP 152/54
[2018-06-07] MEDS: IPRATROPIUM/ALBUTEROL 0.5-3(2.5)MG/3ML NEB HHN SCH ×4 (01:03→12:33)
[2018-06-07] MEDS: HYDROCODONE/ACETAMINOPHEN 5/325MG TABLET PO PRN (03:12)
[2018-06-07 04:30] VITALS: BP 168/76
[2018-06-07] MEDS: LEVOTHYROXINE SODIUM 100MCG TABLET PO SCH (05:26)
[2018-06-07] MEDS: OMEPRAZOLE 20MG CAPSULE EXTENDED RELEASE PO SCH (05:27)
[2018-06-07] MEDS: CLONIDINE 0.1MG TABLET PO PRN (05:29)
[2018-06-07] MEDS: INSULIN LISPRO 100 UNITS/ML SUBCUT SCH ×2 (05:34→12:40)
[2018-06-07] MEDS: BLOOD SUGAR DIAGNOSTIC STRIP TEST SCH ×2 (05:34→11:56)
[2018-06-07 07:23] VITALS: BP 147/60
[2018-06-07] MEDS: ALPRAZOLAM 0.25 MG TABLET PO PRN (08:01)
[2018-06-07] MEDS: LETAIRIS 10MG TABLET PO SCH (08:02)
[2018-06-07] MEDS: FUROSEMIDE 40MG TABLET PO SCH (08:03)
[2018-06-07] MEDS: FERROUS SULFATE 325MG TABLET PO SCH ×2 (08:03→12:40)
[2018-06-07] MEDS: DOCUSATE SODIUM 250MG CAPSULE PO SCH (08:03)
[2018-06-07] MEDS: ENOXAPARIN 40MG/0.4ML SYR SUBCUT SCH (08:03)
[2018-06-07] MEDS: BRIMONIDINE 0.2% OPHTH DROPS 5ML BOTHEYE SCH (08:03)
[2018-06-07] MEDS: NITROFURANTOIN 100MG M/M CAPSULE PO SCH (08:04)
[2018-06-07] MEDS: BUDESONIDE 0.5MG/2ML NEB HHN SCH (09:47)
[2018-06-07] MEDS: INSULIN GLARGINE UD 100 UNITS/ML SYR SUBCUT SCH (10:00)
[2018-06-07 10:38] LABS: CHLORIDE 105 mEq/L (98-107)
[2018-06-07 10:39] LABS: BASOPHILS % 0.7 % (0.0-2.0); EOSINOPHILS % 1.2 % (0.0-5.0); HEMATOCRIT. 26.8 % (36.0-48.0); HEMOGLOBIN. 8.4 g/dL (12.0-16.0); MEAN CORPUSCULAR HEMOGLOBIN 24.6 pg (28.0-32.0); MEAN PLATELET VOLUME 8.1 fl (7.4-10.4); MONOCYTES % 11.7 % (2.0-8.0); NEUTROPHILS % 76.4 % (40.0-76.0); PLATELET 213 x1000/uL (130-400); RED BLOOD CELL COUNT 3.39 mill/uL (4.2-5.4); RED CELL DISTRIBUTION WIDTH 18.2 % (11.6-14.6)
[2018-06-07 12:54] VITALS: BP 151/45
[2018-06-07 13:23] VITALS: BP 151/45
== END 2018-06-07 15:24 | disposition home health service (06) | DRG 682 ==
LOC: ER 20:08 → 8WST 22:28 → EDBEDREQ 22:29 → EDBEDREQTM 22:29 → ENRESERV 06-03 07:33 → 8WST 06-07 14:52
PROVIDERS: ADMIT Internal Medicine Geriatric Medicine; ATTEND Internal Medicine Nephrology
PROC: 02HV33Z Insertion of Infusion Device into Superior Vena Cava, Percutaneous Approach (ICD-10-PCS; 2018-06-03)
PROC: B518ZZA Fluoroscopy of Superior Vena Cava, Guidance (ICD-10-PCS; 2018-06-03)
PROC: B548ZZA Ultrasonography of Superior Vena Cava, Guidance (ICD-10-PCS; 2018-06-03)
PROC: 5A09357 Assistance with Respiratory Ventilation, Less than 24 Consecutive Hours, Continuous Positive Airway Pressure (ICD-10-PCS; 2018-06-03)
PROC: 30233N1 Transfusion of Nonautologous Red Blood Cells into Peripheral Vein, Percutaneous Approach (ICD-10-PCS; principal; 2018-06-04)
PROC: 5A09357 Assistance with Respiratory Ventilation, Less than 24 Consecutive Hours, Continuous Positive Airway Pressure (ICD-10-PCS; 2018-06-04)
PROC: 5A09357 Assistance with Respiratory Ventilation, Less than 24 Consecutive Hours, Continuous Positive Airway Pressure (ICD-10-PCS; 2018-06-05)
PROC: 5A09357 Assistance with Respiratory Ventilation, Less than 24 Consecutive Hours, Continuous Positive Airway Pressure (ICD-10-PCS; 2018-06-07)
DX: N17.9 Acute kidney failure, unspecified (principal); J96.22 Acute and chronic respiratory failure with hypercapnia; I50.43 Acute on chronic combined systolic (congestive) and diastolic (congestive) heart failure; N39.0 Urinary tract infection, site not specified; J44.1 Chronic obstructive pulmonary disease with (acute) exacerbation; I13.0 Hypertensive heart and chronic kidney disease with heart failure and stage 1 through stage 4 chronic kidney disease, or unspecified chronic kidney disease; E66.2 Morbid (severe) obesity with alveolar hypoventilation; E46 Unspecified protein-calorie malnutrition; R65.10 Systemic inflammatory response syndrome (SIRS) of non-infectious origin without acute organ dysfunction; Z68.42 Body mass index [BMI] 45.0-49.9, adult; N20.0 Calculus of kidney; I87.2 Venous insufficiency (chronic) (peripheral); F41.1 Generalized anxiety disorder; K44.9 Diaphragmatic hernia without obstruction or gangrene; I48.0 Paroxysmal atrial fibrillation; I48.2 Chronic atrial fibrillation; E11.22 Type 2 diabetes mellitus with diabetic chronic kidney disease; E11.319 Type 2 diabetes mellitus with unspecified diabetic retinopathy without macular edema; E11.51 Type 2 diabetes mellitus with diabetic peripheral angiopathy without gangrene; K59.00 Constipation, unspecified; D73.89 Other diseases of spleen; K57.30 Diverticulosis of large intestine without perforation or abscess without bleeding; D50.9 Iron deficiency anemia, unspecified; B96.20 Unspecified Escherichia coli [E. coli] as the cause of diseases classified elsewhere; E03.9 Hypothyroidism, unspecified; N18.3 Chronic kidney disease, stage 3 (moderate); E11.40 Type 2 diabetes mellitus with diabetic neuropathy, unspecified; E87.5 Hyperkalemia; I27.20 Pulmonary hypertension, unspecified; Z86.010 Personal history of colon polyps; Z87.891 Personal history of nicotine dependence; Z99.81 Dependence on supplemental oxygen; Z79.899 Other long term (current) drug therapy; Z87.442 Personal history of urinary calculi
CPT/HCPCS: 36415; 36569; 36600; 71045; 74176; 76856; 76937; 77001; 80048; 82375; 82607; 82728; 82746; 82805; 82962; 83036; 83540; 83550; 83605; 83880; 84439; 84443; 84484; 85014; 85018; 85049; 85384; 86850; 86900; 86920; 87077; 87186; 93005; 93306; 94640; 94660; 96361; 96374; 96375; 97162; 99285; C1725; J0696; J1650; J1815; J1885; J1940; J2270; J2405; J3490; J7030; J7040; J7620; J7626; P9016

== ENCOUNTER 2018-06-21 05:57 | Inpatient (IN) | payer MEDICARE, MEDICAID ==
[~2018-06-21] VITALS: Ht 157.5 cm; Wt 110.0 kg
[2018-06-21] VITALS (7 sets, daily range): BP systolic 108–136; BP diastolic 58–108
[~2018-06-21 05:57] MED LIST changes: +AMBR10TA3 MT; +APIX5TAB MT; -IPRA3AMP9 INH; -LETAIRIS PO; -MECL-109 PO; -MONT10TA21 PO
[2018-06-21] MEDS ORDERED: ALBUTEROL (0.083%) 2.5MG/3ML NEB HHN STA (06:09)
[2018-06-21] MEDS ORDERED: METHYLPREDNISOLONE SOD SUCC 125 MG/2 ML VIAL IV STA (06:09)
[2018-06-21] MEDS ORDERED: MAGNESIUM 2 G PREMIX 50 ML IV STA (06:09)
[2018-06-21] MEDS ORDERED: IPRATROPIUM BROMIDE (0.02%) 0.5MG/2.5ML NEB HHN STA (06:09)
[2018-06-21 06:19] LABS: BASOPHILS % 0.6 % (0.0-2.0); EOSINOPHILS % 0.4 % (0.0-5.0); HEMATOCRIT. 32.9 % (36.0-48.0); HEMOGLOBIN. 9.8 g/dL (12.0-16.0); MEAN CORPUSCULAR HEMOGLOBIN 24.7 pg (28.0-32.0); MEAN PLATELET VOLUME 8.6 fl (7.4-10.4); PLATELET 445 x1000/uL (130-400); RED BLOOD CELL COUNT 3.97 mill/uL (4.2-5.4); RED CELL DISTRIBUTION WIDTH 18.8 % (11.6-14.6)
[2018-06-21 06:25] LABS: CHLORIDE 107 mEq/L (98-107)
[2018-06-21 06:39] LABS: BG BASE EXCESS -3.1 mmol/L (-2.0-2.0); BG BILEVEL POS AIRWAY PRESSURE 15/5; BG CARBOXYHEMOGLOBIN 0.9 % (0.5-1.5); BG DEOXYHEMOGLOBIN 0.6 % (0.0-5.0); BG FRACTION INSPIRED OXYGEN 100; BG HCO3 ACT 24.8 mmol/L (22.0-26.0); BG METHEMOGLOBIN 0.2 % (0.0-1.5); BG OXYGEN SATURATION 99.4 % (92.0-98.5); BG OXYHEMOGLOBIN 98.3 % (94.0-97.0); BG PCO2 59.1 mmHg (35.0-45.0); BG PH 7.241 (7.350-7.450); BG PO2 316.5 mmHg (75.0-100.0); BG SAMPLE SITE RIGHT RADIAL; BG TOTAL HEMOGLOBIN 10.6 g/dL (12.0-18.0); BG VENT MODE MASK - BIPAP; BG VENT RATE 18 set
[2018-06-21] MEDS ORDERED: FUROSEMIDE 40MG/4ML VIAL IVP ONE (08:00)
[2018-06-21 08:53] LABS: BG BASE EXCESS -1.6 mmol/L (-2.0-2.0); BG BILEVEL POS AIRWAY PRESSURE 15/5; BG CARBOXYHEMOGLOBIN 0.5 % (0.5-1.5); BG DEOXYHEMOGLOBIN 4.2 % (0.0-5.0); BG FRACTION INSPIRED OXYGEN 40; BG HCO3 ACT 25.7 mmol/L (22.0-26.0); BG METHEMOGLOBIN 0.3 % (0.0-1.5); BG OXYGEN SATURATION 95.8 % (92.0-98.5); BG PCO2 56.9 mmHg (35.0-45.0); BG PH 7.273 (7.350-7.450); BG PO2 90.6 mmHg (75.0-100.0); BG SAMPLE SITE LEFT RADIAL; BG TOTAL HEMOGLOBIN 10.1 g/dL (12.0-18.0); BG VENT MODE MASK - BIPAP
[2018-06-21] MEDS ORDERED: KETOROLAC 30MG/ML VIAL IV ONE (09:15)
[2018-06-21] MEDS ORDERED: CLONIDINE 0.1MG TABLET PO PRN (09:30)
[2018-06-21] MEDS ORDERED: GUAIFENESIN 200MG/10ML SUGAR FREE UDC PO PRN (09:30)
[2018-06-21] MEDS ORDERED: LACTULOSE 20G/30ML UDC PO PRN (09:30)
[2018-06-21] MEDS ORDERED: ONDANSETRON HCL 4MG/2ML INJ IV PRN (09:30)
[2018-06-21] MEDS ORDERED: PIPERACILLIN/TAZ 3.375G PREMIX 50 ML IV SCH (09:30)
[2018-06-21] MEDS ORDERED: IPRATROPIUM/ALBUTEROL 0.5-3(2.5)MG/3ML NEB HHN SCH (09:30)
[2018-06-21] MEDS ORDERED: ACETAMINOPHEN 325MG TABLET PO PRN (09:30)
[2018-06-21] MEDS: CITALOPRAM HYDROBROMIDE 10MG TABLET PO SCH (12:00)
[2018-06-21] MEDS: SPIRONOLACTONE 25MG TABLET PO SCH (12:00)
[2018-06-21] MEDS: FERROUS SULFATE 325MG TABLET PO SCH ×2 (12:00→16:13)
[2018-06-21] MEDS: LEVOTHYROXINE SODIUM 100MCG TABLET PO SCH (12:01)
[2018-06-21] MEDS ORDERED: IPRATROPIUM/ALBUTEROL 0.5-3(2.5)MG/3ML NEB HHN PRN (12:15)
[2018-06-21] MEDS: IPRATROPIUM/ALBUTEROL 0.5-3(2.5)MG/3ML NEB HHN SCH ×3 (13:26→21:28)
[2018-06-21] MEDS ORDERED: METHYLPREDNISOLONE SOD SUCC 125 MG/2 ML VIAL IV SCH (14:00)
[2018-06-21] MEDS ORDERED: VANCOMYCIN 2,000 MG in DEXT 5% WATER 500 ML IV NR (14:00)
[2018-06-21] MEDS ORDERED: DEXTROSE 50% WATER 50ML SYRINGE IV PRN (14:30)
[2018-06-21] MEDS: BLOOD SUGAR DIAGNOSTIC STRIP TEST SCH ×2 (16:06→21:37)
[2018-06-21] MEDS: MONTELUKAST SODIUM 10MG TABLET PO SCH (16:13)
[2018-06-21] MEDS: INSULIN LISPRO 100 UNITS/ML SUBCUT SCH ×2 (16:17→21:38)
[2018-06-21] MEDS: PIPERACILLIN/TAZ 3.375G PREMIX 50 ML IV SCH (17:03)
[2018-06-21] MEDS: APIXABAN 5 MG TABLET PO SCH (17:07)
[2018-06-21 17:09] LABS: CLARITY URINE CLEAR (CLEAR); COLOR URINE YELLOW (YELLOW); KETONES URINE NEGATIVE (NEGATIVE); LEUKOCYTE ESTERASE URINE NEGATIVE (NEGATIVE); NITRITE URINE NEGATIVE (NEGATIVE); OCCULT BLOOD URINE NEGATIVE (NEGATIVE); PROTEIN URINE NEGATIVE (NEGATIVE); SPECIFIC GRAVITY URINE 1.012 (1.005-1.030); UROBILINOGEN URINE 0.2 E.U./dL (0.2-1.0)
[2018-06-21 17:22] LABS: *COCAINE SCREEN URINE NEGATIVE (NEGATIVE)
[2018-06-21 17:23] LABS: METHADONE URINE SCREEN NEGATIVE (NEGATIVE); OPIATES URINE SCREEN PRESUMTIVE POSITIVE (NEGATIVE); PHENCYCLIDINE URINE SCREEN NEGATIVE (NEGATIVE)
[2018-06-21 17:25] LABS: *AMPHETAMINES SCREEN URINE NEGATIVE (NEGATIVE); *BARBITURATES SCREEN URINE NEGATIVE (NEGATIVE); *BENZODIAZEPINES SCREEN URINE PRESUMTIVE POSITIVE (NEGATIVE); CANNABINOID URINE SCREEN NEGATIVE (NEGATIVE)
[2018-06-21] MEDS: BUDESONIDE 0.5MG/2ML NEB HHN SCH ×2 (17:26→21:27)
[2018-06-21 18:17] LABS: CREATINE KINASE MB FRACTION 2.4 ng/mL (0.5-3.6)
[2018-06-21] MEDS ORDERED: TRAM150C25 MT (20:14)
[2018-06-21] MEDS: FAMOTIDINE 20MG/2ML VIAL IV SCH (21:37)
[2018-06-21] MEDS: LETAIRIS 10MG TABLET PO SCH (22:08)
[2018-06-22] VITALS (12 sets, daily range): BP systolic 99–147; BP diastolic 44–83
[2018-06-22] MEDS: PIPERACILLIN/TAZ 3.375G PREMIX 50 ML IV SCH ×3 (01:43→17:05)
[2018-06-22] MEDS: LEVOTHYROXINE SODIUM 100MCG TABLET PO SCH (06:31)
[2018-06-22] MEDS: APIXABAN 5 MG TABLET PO SCH ×2 (06:31→17:05)
[2018-06-22] MEDS: BLOOD SUGAR DIAGNOSTIC STRIP TEST SCH ×4 (06:32→20:22)
[2018-06-22] MEDS: TRAMADOL 50MG TABLET PO PRN ×2 (06:32→16:52)
[2018-06-22 07:11] LABS: BG BASE EXCESS -1.1 mmol/L (-2.0-2.0); BG CARBOXYHEMOGLOBIN 0.4 % (0.5-1.5); BG DEOXYHEMOGLOBIN 5.8 % (0.0-5.0); BG FRACTION INSPIRED OXYGEN 32; BG HCO3 ACT 24.7 mmol/L (22.0-26.0); BG METHEMOGLOBIN 0.4 % (0.0-1.5); BG OXYGEN SATURATION 94.2 % (92.0-98.5); BG OXYHEMOGLOBIN 93.4 % (94.0-97.0); BG PCO2 45.9 mmHg (35.0-45.0); BG PH 7.348 (7.350-7.450); BG PO2 78.3 mmHg (75.0-100.0); BG SAMPLE SITE RIGHT RADIAL; BG TOTAL HEMOGLOBIN 9.2 g/dL (12.0-18.0); BG VENT MODE NASAL CANNULA
[2018-06-22 07:16] LABS: HEMATOCRIT. 26.6 % (36.0-48.0); HEMOGLOBIN. 8.3 g/dL (12.0-16.0); MEAN CORPUSCULAR HEMOGLOBIN 25.3 pg (28.0-32.0); MEAN CORPUSCULAR VOLUME 80.6 fL (81.0-99.0); MEAN PLATELET VOLUME 8.7 fl (7.4-10.4); PLATELET 275 x1000/uL (130-400); RED CELL DISTRIBUTION WIDTH 18.1 % (11.6-14.6)
[2018-06-22] MEDS: IPRATROPIUM/ALBUTEROL 0.5-3(2.5)MG/3ML NEB HHN SCH ×5 (07:30→20:56)
[2018-06-22] MEDS: BUDESONIDE 0.5MG/2ML NEB HHN SCH ×2 (07:30→20:56)
[2018-06-22 07:51] LABS: CHLORIDE 105 mEq/L (98-107)
[2018-06-22] MEDS: FAMOTIDINE 20MG/2ML VIAL IV SCH ×2 (08:08→20:21)
[2018-06-22] MEDS: DOCUSATE SODIUM 250MG CAPSULE PO SCH (08:08)
[2018-06-22] MEDS: FERROUS SULFATE 325MG TABLET PO SCH ×3 (08:08→16:49)
[2018-06-22] MEDS: SPIRONOLACTONE 25MG TABLET PO SCH (08:08)
[2018-06-22] MEDS: CITALOPRAM HYDROBROMIDE 10MG TABLET PO SCH (08:08)
[2018-06-22] MEDS: FUROSEMIDE 40MG/4ML VIAL IVP SCH (08:09)
[2018-06-22] MEDS: LETAIRIS 10MG TABLET PO SCH (08:09)
[2018-06-22 08:14] LABS: CREATINE KINASE MB FRACTION 1.9 ng/mL (0.5-3.6)
[2018-06-22] MEDS: INSULIN LISPRO 100 UNITS/ML SUBCUT SCH ×4 (08:19→20:22)
[2018-06-22] MEDS ORDERED: VANCOMYCIN 1250MG in DEXTROSE 5% WATER 250ML IV SCH (14:00)
[2018-06-22] MEDS ORDERED: VANCOMYCIN 1 G PREMIX 200 ML IV SCH (14:00)
[2018-06-22 14:54] LABS: PLATELET ESTIMATE NORMAL
[2018-06-22] MEDS: MONTELUKAST SODIUM 10MG TABLET PO SCH (16:49)
[2018-06-23] VITALS (13 sets, daily range): BP systolic 116–148; BP diastolic 56–102
[2018-06-23] MEDS: IPRATROPIUM/ALBUTEROL 0.5-3(2.5)MG/3ML NEB HHN SCH ×6 (00:22→21:26)
[2018-06-23] MEDS: PIPERACILLIN/TAZ 3.375G PREMIX 50 ML IV SCH ×3 (02:53→17:00)
[2018-06-23] MEDS: APIXABAN 5 MG TABLET PO SCH ×2 (06:11→17:00)
[2018-06-23] MEDS: BLOOD SUGAR DIAGNOSTIC STRIP TEST SCH ×4 (06:11→20:38)
[2018-06-23] MEDS: LEVOTHYROXINE SODIUM 100MCG TABLET PO SCH (06:11)
[2018-06-23] MEDS: INSULIN LISPRO 100 UNITS/ML SUBCUT SCH ×4 (06:11→20:38)
[2018-06-23 06:49] LABS: BASOPHILS % 0.3 % (0.0-2.0); EOSINOPHILS % 0.4 % (0.0-5.0); HEMATOCRIT. 27.4 % (36.0-48.0); HEMOGLOBIN. 8.6 g/dL (12.0-16.0); LYMPHOCYTES % 10.5 % (20.0-50.0); MEAN CORPUSCULAR HEMOGLOBIN 25.1 pg (28.0-32.0); MEAN CORPUSCULAR VOLUME 79.5 fL (81.0-99.0); MEAN PLATELET VOLUME 8.4 fl (7.4-10.4); MONOCYTES % 10.5 % (2.0-8.0); NEUTROPHILS % 78.3 % (40.0-76.0); PLATELET 297 x1000/uL (130-400); RED BLOOD CELL COUNT 3.44 mill/uL (4.2-5.4); RED CELL DISTRIBUTION WIDTH 18.5 % (11.6-14.6)
[2018-06-23] MEDS: SPIRONOLACTONE 25MG TABLET PO SCH (08:02)
[2018-06-23] MEDS: CITALOPRAM HYDROBROMIDE 10MG TABLET PO SCH (08:02)
[2018-06-23] MEDS: DOCUSATE SODIUM 250MG CAPSULE PO SCH (08:02)
[2018-06-23] MEDS: LETAIRIS 10MG TABLET PO SCH (08:03)
[2018-06-23] MEDS: FAMOTIDINE 20MG/2ML VIAL IV SCH (08:03)
[2018-06-23] MEDS: FERROUS SULFATE 325MG TABLET PO SCH ×3 (08:03→16:30)
[2018-06-23] MEDS: FUROSEMIDE 40MG/4ML VIAL IVP SCH (08:03)
[2018-06-23] MEDS: BUDESONIDE 0.5MG/2ML NEB HHN SCH ×2 (08:09→21:27)
[2018-06-23] MEDS: TRAMADOL 50MG TABLET PO PRN ×2 (08:17→16:30)
[2018-06-23] MEDS: MONTELUKAST SODIUM 10MG TABLET PO SCH (16:30)
[2018-06-23] MEDS ORDERED: VANCOMYCIN 1 G PREMIX 200 ML IV NR (20:00)
[2018-06-24] VITALS (12 sets, daily range): BP systolic 126–144; BP diastolic 59–81
[2018-06-24] MEDS: TRAMADOL 50MG TABLET PO PRN (00:25)
[2018-06-24] MEDS: IPRATROPIUM/ALBUTEROL 0.5-3(2.5)MG/3ML NEB HHN SCH ×6 (01:05→20:20)
[2018-06-24] MEDS: PIPERACILLIN/TAZ 3.375G PREMIX 50 ML IV SCH ×3 (02:28→18:00)
[2018-06-24] MEDS: LEVOTHYROXINE SODIUM 100MCG TABLET PO SCH (05:56)
[2018-06-24] MEDS: APIXABAN 5 MG TABLET PO SCH ×2 (05:57→17:33)
[2018-06-24] MEDS: BLOOD SUGAR DIAGNOSTIC STRIP TEST SCH ×4 (05:58→20:59)
[2018-06-24] MEDS: INSULIN LISPRO 100 UNITS/ML SUBCUT SCH ×4 (07:20→21:00)
[2018-06-24] MEDS: CITALOPRAM HYDROBROMIDE 10MG TABLET PO SCH (08:40)
[2018-06-24] MEDS: FAMOTIDINE 20MG/2ML VIAL IV SCH (08:40)
[2018-06-24] MEDS: FUROSEMIDE 40MG/4ML VIAL IVP SCH (08:40)
[2018-06-24] MEDS: SPIRONOLACTONE 25MG TABLET PO SCH (08:41)
[2018-06-24] MEDS: FERROUS SULFATE 325MG TABLET PO SCH ×3 (08:41→17:33)
[2018-06-24] MEDS: LETAIRIS 10MG TABLET PO SCH (08:42)
[2018-06-24] MEDS: DOCUSATE SODIUM 250MG CAPSULE PO SCH (08:42)
[2018-06-24] MEDS: BUDESONIDE 0.5MG/2ML NEB HHN SCH ×2 (08:43→20:21)
[2018-06-24] MEDS: HYDROMORPHONE HCL/PF 2MG/ML CPJ IV PRN ×2 (10:18→17:34)
[2018-06-24] MEDS: MONTELUKAST SODIUM 10MG TABLET PO SCH (17:33)
[2018-06-24] MEDS ORDERED: VANCOMYCIN 1 G PREMIX 200 ML IV SCH (18:00)
[2018-06-24] MEDS ORDERED: LIDOCAINE HCL 4% CREAM 76GM TUBE TP PRN (18:30)
[2018-06-25] VITALS (9 sets, daily range): BP systolic 138–165; BP diastolic 60–75
[2018-06-25] MEDS: HYDROMORPHONE HCL/PF 2MG/ML CPJ IV PRN ×2 (00:46→08:47)
[2018-06-25] MEDS: IPRATROPIUM/ALBUTEROL 0.5-3(2.5)MG/3ML NEB HHN SCH ×5 (00:50→15:16)
[2018-06-25] MEDS: PIPERACILLIN/TAZ 3.375G PREMIX 50 ML IV SCH ×2 (02:00→08:47)
[2018-06-25] MEDS: APIXABAN 5 MG TABLET PO SCH (06:48)
[2018-06-25] MEDS: LEVOTHYROXINE SODIUM 100MCG TABLET PO SCH (06:49)
[2018-06-25] MEDS: FERROUS SULFATE 325MG TABLET PO SCH ×2 (06:49→12:57)
[2018-06-25] MEDS: BLOOD SUGAR DIAGNOSTIC STRIP TEST SCH ×2 (07:30→11:24)
[2018-06-25] MEDS: FAMOTIDINE 20MG/2ML VIAL IV SCH (08:02)
[2018-06-25] MEDS: LETAIRIS 10MG TABLET PO SCH (08:02)
[2018-06-25] MEDS: SPIRONOLACTONE 25MG TABLET PO SCH (08:02)
[2018-06-25] MEDS: INSULIN LISPRO 100 UNITS/ML SUBCUT SCH ×2 (08:03→11:48)
[2018-06-25] MEDS: CITALOPRAM HYDROBROMIDE 10MG TABLET PO SCH (08:03)
[2018-06-25] MEDS: DOCUSATE SODIUM 250MG CAPSULE PO SCH (08:04)
[2018-06-25] MEDS ORDERED: VANCOMYCIN 1 G PREMIX 200 ML IV SCH (17:00)
== END 2018-06-25 16:08 | disposition home health service (06) | DRG 291 ==
LOC: ER 05:57 → 3WST 07:47 → ENRESERV 09:42
PROVIDERS: ADMIT Internal Medicine Geriatric Medicine; ATTEND Internal Medicine Geriatric Medicine
PROC: 5A09357 Assistance with Respiratory Ventilation, Less than 24 Consecutive Hours, Continuous Positive Airway Pressure (ICD-10-PCS; principal; 2018-06-21)
PROC: 5A09357 Assistance with Respiratory Ventilation, Less than 24 Consecutive Hours, Continuous Positive Airway Pressure (ICD-10-PCS; 2018-06-23)
PROC: 5A09357 Assistance with Respiratory Ventilation, Less than 24 Consecutive Hours, Continuous Positive Airway Pressure (ICD-10-PCS; 2018-06-25)
DX: I13.0 Hypertensive heart and chronic kidney disease with heart failure and stage 1 through stage 4 chronic kidney disease, or unspecified chronic kidney disease (principal); I50.43 Acute on chronic combined systolic (congestive) and diastolic (congestive) heart failure; J96.22 Acute and chronic respiratory failure with hypercapnia; E87.2 Acidosis; N17.9 Acute kidney failure, unspecified; Z68.41 Body mass index [BMI] 40.0-44.9, adult; I27.29 Other secondary pulmonary hypertension; D50.9 Iron deficiency anemia, unspecified; E11.22 Type 2 diabetes mellitus with diabetic chronic kidney disease; G47.33 Obstructive sleep apnea (adult) (pediatric); F41.9 Anxiety disorder, unspecified; E03.9 Hypothyroidism, unspecified; E11.51 Type 2 diabetes mellitus with diabetic peripheral angiopathy without gangrene; K63.5 Polyp of colon; J44.9 Chronic obstructive pulmonary disease, unspecified; I25.10 Atherosclerotic heart disease of native coronary artery without angina pectoris; N18.2 Chronic kidney disease, stage 2 (mild); I48.2 Chronic atrial fibrillation; I87.2 Venous insufficiency (chronic) (peripheral); K21.9 Gastro-esophageal reflux disease without esophagitis; K44.9 Diaphragmatic hernia without obstruction or gangrene; Z16.12 Extended spectrum beta lactamase (ESBL) resistance; Z79.01 Long term (current) use of anticoagulants; Z79.899 Other long term (current) drug therapy; Z86.010 Personal history of colon polyps; Z99.81 Dependence on supplemental oxygen
CPT/HCPCS: 36415; 36600; 71045; 80048; 80202; 80305; 82375; 82553; 82805; 82962; 83880; 84484; 93005; 93970; 94640; 94660; 96365; 96375; 97161; 99291; J1170; J1815; J1885; J1940; J2543; J2930; J3370; J3475; J3490; J7050; J7060; J7611; J7620; J7626; A4315

== ENCOUNTER 2018-08-09 07:19 | Inpatient (IN) | payer MEDICARE, MEDICAID ==
[~2018-08-09] VITALS: Ht 157.5 cm; Wt 99.8 kg
[2018-08-09] VITALS (7 sets, daily range): BP systolic 130–181; BP diastolic 53–98
[~2018-08-09 07:19] MED LIST changes: +TRAM150C25 MT
[2018-08-09] MEDS ORDERED: METHYLPREDNISOLONE SOD SUCC 125 MG/2 ML VIAL IV STA (07:34)
[2018-08-09] MEDS ORDERED: IPRATROPIUM BROMIDE (0.02%) 0.5MG/2.5ML NEB HHN STA (07:34)
[2018-08-09] MEDS ORDERED: MAGNESIUM 2 G PREMIX 50 ML IV ONE (07:45)
[2018-08-09 07:56] LABS: HEMATOCRIT. 32.2 % (36.0-48.0); HEMOGLOBIN. 10.1 g/dL (12.0-16.0); MEAN CORPUSCULAR HEMOGLOBIN 26.2 pg (28.0-32.0); MEAN CORPUSCULAR VOLUME 83.6 fL (81.0-99.0); MEAN PLATELET VOLUME 8.2 fl (7.4-10.4); PLATELET 243 x1000/uL (130-400); RED BLOOD CELL COUNT 3.86 mill/uL (4.2-5.4); RED CELL DISTRIBUTION WIDTH 20.5 % (11.6-14.6)
[2018-08-09] MEDS: ALBUTEROL (0.083%) 2.5MG/3ML NEB HHN SCH ×3 (08:00→09:10)
[2018-08-09 08:04] LABS: CHLORIDE 105 mEq/L (98-107)
[2018-08-09] MEDS ORDERED: LORAZEPAM 2MG/ML CPJ IV ONE (08:15)
[2018-08-09 08:27] LABS: PLATELET ESTIMATE NORMAL
[2018-08-09] MEDS ORDERED: FUROSEMIDE 40MG/4ML VIAL IVP ONE (08:45)
[2018-08-09] MEDS ORDERED: ENALAPRIL 2.5MG/2ML VIAL 2ML IV ONE (08:45)
[2018-08-09] MEDS ORDERED: ACETAMINOPHEN 325MG TABLET PO PRN (09:00)
[2018-08-09] MEDS ORDERED: GUAIFENESIN 200MG/10ML SUGAR FREE UDC PO PRN (09:00)
[2018-08-09] MEDS ORDERED: NON FORMULARY PATIENT HOME MED XX SCH ×2 (09:00→14:45)
[2018-08-09] MEDS ORDERED: IPRATROPIUM/ALBUTEROL 0.5-3(2.5)MG/3ML NEB HHN SCH (09:00)
[2018-08-09] MEDS ORDERED: ENOXAPARIN 40MG/0.4ML SYR SUBCUT SCH (09:00)
[2018-08-09] MEDS ORDERED: DEXTROSE 50% WATER 50ML SYRINGE IV PRN (11:45)
[2018-08-09] MEDS: BLOOD SUGAR DIAGNOSTIC STRIP TEST SCH ×3 (12:27→20:35)
[2018-08-09] MEDS: LISINOPRIL 20MG TABLET PO SCH (13:08)
[2018-08-09] MEDS: CARVEDILOL 6.25 MG TABLET PO SCH ×2 (13:08→20:34)
[2018-08-09] MEDS: SPIRONOLACTONE 25MG TABLET PO SCH (13:08)
[2018-08-09] MEDS: DOCUSATE SODIUM 250MG CAPSULE PO SCH (13:08)
[2018-08-09] MEDS: HYDROMORPHONE HCL/PF 2MG/ML CPJ IV PRN ×2 (13:09→18:02)
[2018-08-09 13:42] LABS: BG BASE EXCESS 0.5 mmol/L (-2.0-2.0); BG BILEVEL POS AIRWAY PRESSURE 15/5; BG CARBOXYHEMOGLOBIN 0.1 % (0.5-1.5); BG DEOXYHEMOGLOBIN 1.8 % (0.0-5.0); BG FRACTION INSPIRED OXYGEN 40; BG HCO3 ACT 25.9 mmol/L (22.0-26.0); BG METHEMOGLOBIN 0.1 % (0.0-1.5); BG OXYGEN SATURATION 98.2 % (92.0-98.5); BG PCO2 44.6 mmHg (35.0-45.0); BG PH 7.381 (7.350-7.450); BG PO2 131.1 mmHg (75.0-100.0); BG SAMPLE SITE RIGHT RADIAL; BG TOTAL HEMOGLOBIN 10.5 g/dL (12.0-18.0); BG VENT MODE MASK - BIPAP; BG VENT RATE 18 set
[2018-08-09] MEDS: INSULIN LISPRO 100 UNITS/ML SUBCUT SCH ×3 (13:50→20:39)
[2018-08-09 14:59] LABS: CREATINE KINASE MB FRACTION < 1.0 ng/mL (0.5-3.6)
[2018-08-09] MEDS: CLONIDINE 0.1MG TABLET PO PRN (15:17)
[2018-08-09] MEDS: CITALOPRAM HYDROBROMIDE 10MG TABLET PO SCH (15:17)
[2018-08-09] MEDS: FERROUS SULFATE 325MG TABLET PO SCH (15:17)
[2018-08-09] MEDS: LEVOTHYROXINE SODIUM 100MCG TABLET PO SCH (15:17)
[2018-08-09] MEDS: FAMOTIDINE 20MG TABLET PO SCH ×2 (15:17→20:34)
[2018-08-09 15:44] LABS: CLARITY URINE CLEAR (CLEAR); COLOR URINE YELLOW (YELLOW); KETONES URINE 1+ (NEGATIVE); LEUKOCYTE ESTERASE URINE NEGATIVE (NEGATIVE); NITRITE URINE NEGATIVE (NEGATIVE); OCCULT BLOOD URINE NEGATIVE (NEGATIVE); PROTEIN URINE NEGATIVE (NEGATIVE); SPECIFIC GRAVITY URINE 1.008 (1.005-1.030); UROBILINOGEN URINE 0.2 E.U./dL (0.2-1.0)
[2018-08-09] MEDS: IPRATROPIUM/ALBUTEROL 0.5-3(2.5)MG/3ML NEB HHN SCH ×2 (16:45→20:07)
[2018-08-09 16:55] LABS: *AMPHETAMINES SCREEN URINE NEGATIVE (NEGATIVE); *BARBITURATES SCREEN URINE NEGATIVE (NEGATIVE); CANNABINOID URINE SCREEN NEGATIVE (NEGATIVE); OPIATES URINE SCREEN PRESUMTIVE POSITIVE (NEGATIVE); PHENCYCLIDINE URINE SCREEN NEGATIVE (NEGATIVE)
[2018-08-09 16:56] LABS: *BENZODIAZEPINES SCREEN URINE NEGATIVE (NEGATIVE); *COCAINE SCREEN URINE NEGATIVE (NEGATIVE); METHADONE URINE SCREEN NEGATIVE (NEGATIVE)
[2018-08-09] MEDS: BRIMONIDINE 0.2% OPHTH DROPS 5ML BOTHEYE SCH (18:02)
[2018-08-09] MEDS: APIXABAN 5 MG TABLET PO SCH (18:02)
[2018-08-09] MEDS: HYDRALAZINE HCL 25MG TABLET PO SCH ×2 (18:26→21:46)
[2018-08-09] MEDS: BUDESONIDE 0.5MG/2ML NEB HHN SCH (20:07)
[2018-08-09] MEDS: ATORVASTATIN CALCIUM 20MG TABLET PO SCH (20:35)
[2018-08-09] MEDS: ZOLPIDEM TARTRATE 5MG TABLET PO PRN (21:45)
[2018-08-10] VITALS (10 sets, daily range): BP systolic 110–167; BP diastolic 53–78
[2018-08-10] MEDS: IPRATROPIUM/ALBUTEROL 0.5-3(2.5)MG/3ML NEB HHN SCH ×6 (00:16→20:13)
[2018-08-10 00:56] LABS: CREATINE KINASE MB FRACTION < 1.0 ng/mL (0.5-3.6)
[2018-08-10] MEDS: HYDRALAZINE HCL 25MG TABLET PO SCH ×3 (06:15→22:53)
[2018-08-10 06:18] LABS: HEMATOCRIT. 28.5 % (36.0-48.0); HEMOGLOBIN. 9.2 g/dL (12.0-16.0); MEAN CORPUSCULAR HEMOGLOBIN 26.5 pg (28.0-32.0); MEAN CORPUSCULAR VOLUME 82.1 fL (81.0-99.0); MEAN PLATELET VOLUME 8.3 fl (7.4-10.4); PLATELET 212 x1000/uL (130-400); RED BLOOD CELL COUNT 3.46 mill/uL (4.2-5.4)
[2018-08-10 06:34] LABS: CHLORIDE 102 mEq/L (98-107)
[2018-08-10] MEDS: HYDROMORPHONE HCL/PF 2MG/ML CPJ IV PRN ×3 (07:24→20:38)
[2018-08-10] MEDS: BLOOD SUGAR DIAGNOSTIC STRIP TEST SCH ×4 (07:26→20:38)
[2018-08-10] MEDS: BUDESONIDE 0.5MG/2ML NEB HHN SCH ×2 (07:28→20:14)
[2018-08-10] MEDS: LEVOTHYROXINE SODIUM 100MCG TABLET PO SCH (08:45)
[2018-08-10] MEDS: LISINOPRIL 20MG TABLET PO SCH (08:45)
[2018-08-10] MEDS: APIXABAN 5 MG TABLET PO SCH ×2 (08:46→17:29)
[2018-08-10] MEDS: FAMOTIDINE 20MG TABLET PO SCH ×2 (08:46→20:38)
[2018-08-10] MEDS: DOCUSATE SODIUM 250MG CAPSULE PO SCH (08:46)
[2018-08-10] MEDS: CARVEDILOL 6.25 MG TABLET PO SCH ×2 (08:46→20:45)
[2018-08-10] MEDS: INSULIN LISPRO 100 UNITS/ML SUBCUT SCH ×4 (08:47→20:48)
[2018-08-10] MEDS: FUROSEMIDE 40MG/4ML VIAL IVP SCH (08:47)
[2018-08-10] MEDS: BRIMONIDINE 0.2% OPHTH DROPS 5ML BOTHEYE SCH (08:49)
[2018-08-10] MEDS: CITALOPRAM HYDROBROMIDE 10MG TABLET PO SCH (09:01)
[2018-08-10] MEDS: FERROUS SULFATE 325MG TABLET PO SCH (09:01)
[2018-08-10] MEDS: SPIRONOLACTONE 25MG TABLET PO SCH (09:01)
[2018-08-10 12:44] LABS: PLATELET ESTIMATE NORMAL
[2018-08-10] MEDS: CEFTRIAXONE 2 G in DEXTROSE 5% WATER 50 ML IV SCH (12:48)
[2018-08-10] MEDS: ALPRAZOLAM 0.25 MG TABLET PO PRN (12:48)
[2018-08-10] MEDS: ATORVASTATIN CALCIUM 20MG TABLET PO SCH (20:38)
[2018-08-11] VITALS (11 sets, daily range): BP systolic 113–159; BP diastolic 53–92
[2018-08-11] MEDS: IPRATROPIUM/ALBUTEROL 0.5-3(2.5)MG/3ML NEB HHN SCH ×7 (00:05→23:46)
[2018-08-11] MEDS: ZOLPIDEM TARTRATE 5MG TABLET PO PRN ×2 (02:20→22:58)
[2018-08-11] MEDS: HYDROMORPHONE HCL/PF 2MG/ML CPJ IV PRN ×3 (05:58→18:04)
[2018-08-11] MEDS: HYDRALAZINE HCL 25MG TABLET PO SCH ×3 (05:58→21:00)
[2018-08-11 07:02] LABS: BASOPHILS % 0.4 % (0.0-2.0); EOSINOPHILS % 0.5 % (0.0-5.0); HEMATOCRIT. 29.7 % (36.0-48.0); HEMOGLOBIN. 9.6 g/dL (12.0-16.0); LYMPHOCYTES % 10.6 % (20.0-50.0); MEAN CORPUSCULAR HEMOGLOBIN 26.6 pg (28.0-32.0); MEAN CORPUSCULAR VOLUME 82.5 fL (81.0-99.0); MEAN PLATELET VOLUME 8.3 fl (7.4-10.4); MONOCYTES % 10.9 % (2.0-8.0); NEUTROPHILS % 77.6 % (40.0-76.0); PLATELET 238 x1000/uL (130-400)
[2018-08-11] MEDS: BLOOD SUGAR DIAGNOSTIC STRIP TEST SCH ×4 (07:30→21:00)
[2018-08-11] MEDS: INSULIN LISPRO 100 UNITS/ML SUBCUT SCH ×4 (08:00→21:00)
[2018-08-11 08:01] LABS: PHOSPHORUS 3.6 mg/dL (2.5-4.9)
[2018-08-11] MEDS: CARVEDILOL 6.25 MG TABLET PO SCH ×2 (09:00→20:54)
[2018-08-11] MEDS: FERROUS SULFATE 325MG TABLET PO SCH (09:27)
[2018-08-11] MEDS: BRIMONIDINE 0.2% OPHTH DROPS 5ML BOTHEYE SCH (09:27)
[2018-08-11] MEDS: FUROSEMIDE 40MG/4ML VIAL IVP SCH (09:27)
[2018-08-11] MEDS: CITALOPRAM HYDROBROMIDE 10MG TABLET PO SCH (09:27)
[2018-08-11] MEDS: CEFTRIAXONE 2 G in DEXTROSE 5% WATER 50 ML IV SCH (09:27)
[2018-08-11] MEDS: LEVOTHYROXINE SODIUM 100MCG TABLET PO SCH (09:27)
[2018-08-11] MEDS: DOCUSATE SODIUM 250MG CAPSULE PO SCH (09:27)
[2018-08-11] MEDS: LISINOPRIL 20MG TABLET PO SCH (09:28)
[2018-08-11] MEDS: APIXABAN 5 MG TABLET PO SCH ×2 (09:28→18:05)
[2018-08-11] MEDS: FAMOTIDINE 20MG TABLET PO SCH ×2 (09:28→20:57)
[2018-08-11] MEDS: BUDESONIDE 0.5MG/2ML NEB HHN SCH ×2 (09:35→21:08)
[2018-08-11] MEDS: SPIRONOLACTONE 25MG TABLET PO SCH (09:48)
[2018-08-11 12:00] LABS: TOTAL IRON BINDING CAPACITY 298 ug/dL (250-450)
[2018-08-11] MEDS ORDERED: NITROFURANTOIN 100MG M/M CAPSULE PO SCH ×2 (18:30→21:00)
[2018-08-11] MEDS: ATORVASTATIN CALCIUM 20MG TABLET PO SCH (20:57)
[2018-08-12] VITALS (12 sets, daily range): BP systolic 108–169; BP diastolic 49–80
[2018-08-12] MEDS: CLONIDINE 0.1MG TABLET PO PRN (03:27)
[2018-08-12] MEDS: IPRATROPIUM/ALBUTEROL 0.5-3(2.5)MG/3ML NEB HHN SCH ×5 (03:45→21:25)
[2018-08-12] MEDS: HYDRALAZINE HCL 25MG TABLET PO SCH ×3 (06:35→21:23)
[2018-08-12] MEDS: LEVOTHYROXINE SODIUM 100MCG TABLET PO SCH (06:35)
[2018-08-12] MEDS: HYDROMORPHONE HCL/PF 2MG/ML CPJ IV PRN ×4 (06:36→21:46)
[2018-08-12] MEDS: BLOOD SUGAR DIAGNOSTIC STRIP TEST SCH ×4 (07:30→21:47)
[2018-08-12] MEDS: INSULIN LISPRO 100 UNITS/ML SUBCUT SCH ×4 (08:00→21:00)
[2018-08-12] MEDS: DOCUSATE SODIUM 250MG CAPSULE PO SCH ×2 (09:00→09:35)
[2018-08-12] MEDS ORDERED: ONDANSETRON HCL 4MG/2ML INJ IV PRN (09:00)
[2018-08-12] MEDS: CARVEDILOL 6.25 MG TABLET PO SCH ×2 (09:35→21:23)
[2018-08-12] MEDS: CITALOPRAM HYDROBROMIDE 10MG TABLET PO SCH (09:35)
[2018-08-12] MEDS: APIXABAN 5 MG TABLET PO SCH ×2 (09:35→18:23)
[2018-08-12] MEDS: FUROSEMIDE 40MG/4ML VIAL IVP SCH (09:36)
[2018-08-12] MEDS: LISINOPRIL 20MG TABLET PO SCH (09:36)
[2018-08-12] MEDS: SPIRONOLACTONE 25MG TABLET PO SCH (09:36)
[2018-08-12] MEDS: FAMOTIDINE 20MG TABLET PO SCH ×2 (09:36→21:23)
[2018-08-12 09:45] LABS: BASOPHILS % 0.5 % (0.0-2.0); EOSINOPHILS % 0.8 % (0.0-5.0); HEMATOCRIT. 34.6 % (36.0-48.0); HEMOGLOBIN. 10.9 g/dL (12.0-16.0); LYMPHOCYTES % 9.2 % (20.0-50.0); MEAN CORPUSCULAR VOLUME 82.7 fL (81.0-99.0); MEAN PLATELET VOLUME 8.2 fl (7.4-10.4); MONOCYTES % 10.6 % (2.0-8.0); NEUTROPHILS % 78.9 % (40.0-76.0); PLATELET 283 x1000/uL (130-400); RED BLOOD CELL COUNT 4.18 mill/uL (4.2-5.4); RED CELL DISTRIBUTION WIDTH 19.3 % (11.6-14.6)
[2018-08-12] MEDS: IRON SUCROSE COMPLEX 100 MG/5 ML ML IV SCH (10:44)
[2018-08-12] MEDS: BRIMONIDINE 0.2% OPHTH DROPS 5ML BOTHEYE SCH (10:45)
[2018-08-12] MEDS: MEROPENEM 1,000 MG in SODIUM CHLORIDE 0.9% 100 ML IV SCH ×2 (10:45→21:15)
[2018-08-12] MEDS: BUDESONIDE 0.5MG/2ML NEB HHN SCH (13:03)
[2018-08-12] MEDS: ATORVASTATIN CALCIUM 20MG TABLET PO SCH (21:23)
[2018-08-12] MEDS: ZOLPIDEM TARTRATE 5MG TABLET PO PRN (22:49)
[2018-08-13] VITALS (12 sets, daily range): BP systolic 122–162; BP diastolic 58–90
[2018-08-13] MEDS: IPRATROPIUM/ALBUTEROL 0.5-3(2.5)MG/3ML NEB HHN SCH ×7 (00:14→23:40)
[2018-08-13] MEDS: HYDRALAZINE HCL 25MG TABLET PO SCH ×3 (05:25→21:23)
[2018-08-13] MEDS: HYDROMORPHONE HCL/PF 2MG/ML CPJ IV PRN (05:26)
[2018-08-13 06:28] LABS: BASOPHILS % 0.4 % (0.0-2.0); EOSINOPHILS % 0.5 % (0.0-5.0); HEMATOCRIT. 30.1 % (36.0-48.0); HEMOGLOBIN. 9.8 g/dL (12.0-16.0); LYMPHOCYTES % 8.3 % (20.0-50.0); MEAN CORPUSCULAR HEMOGLOBIN 26.7 pg (28.0-32.0); MEAN CORPUSCULAR VOLUME 82.4 fL (81.0-99.0); MEAN PLATELET VOLUME 8.1 fl (7.4-10.4); MONOCYTES % 14.8 % (2.0-8.0); PLATELET 248 x1000/uL (130-400); RED BLOOD CELL COUNT 3.66 mill/uL (4.2-5.4); RED CELL DISTRIBUTION WIDTH 19.6 % (11.6-14.6)
[2018-08-13] MEDS: LEVOTHYROXINE SODIUM 100MCG TABLET PO SCH (06:32)
[2018-08-13] MEDS: BLOOD SUGAR DIAGNOSTIC STRIP TEST SCH ×4 (07:30→21:30)
[2018-08-13] MEDS: INSULIN LISPRO 100 UNITS/ML SUBCUT SCH ×4 (08:00→21:00)
[2018-08-13] MEDS: APIXABAN 5 MG TABLET PO SCH ×2 (08:52→18:37)
[2018-08-13] MEDS: CARVEDILOL 6.25 MG TABLET PO SCH ×2 (08:52→21:22)
[2018-08-13] MEDS: FAMOTIDINE 20MG TABLET PO SCH ×2 (08:52→21:22)
[2018-08-13] MEDS: LISINOPRIL 20MG TABLET PO SCH (08:53)
[2018-08-13] MEDS: DOCUSATE SODIUM 250MG CAPSULE PO SCH (08:53)
[2018-08-13] MEDS: CITALOPRAM HYDROBROMIDE 10MG TABLET PO SCH (08:53)
[2018-08-13] MEDS: IRON SUCROSE COMPLEX 100 MG/5 ML ML IV SCH (08:53)
[2018-08-13] MEDS: SPIRONOLACTONE 25MG TABLET PO SCH (08:53)
[2018-08-13] MEDS: BRIMONIDINE 0.2% OPHTH DROPS 5ML BOTHEYE SCH (08:53)
[2018-08-13] MEDS: FUROSEMIDE 40MG/4ML VIAL IVP SCH (08:53)
[2018-08-13] MEDS: MEROPENEM 1,000 MG in SODIUM CHLORIDE 0.9% 100 ML IV SCH ×2 (10:35→22:13)
[2018-08-13] MEDS ORDERED: LIDOCAINE 5% PATCH TOP SCH (11:45)
[2018-08-13] MEDS: HYDROCODONE/ACETAMINOPHEN 5/325MG TABLET PO PRN ×2 (13:17→21:21)
[2018-08-13] MEDS: ATORVASTATIN CALCIUM 20MG TABLET PO SCH (21:22)
[2018-08-13] MEDS: ALPRAZOLAM 0.25 MG TABLET PO PRN (21:30)
[2018-08-14] VITALS (8 sets, daily range): BP systolic 106–162; BP diastolic 50–74
[2018-08-14] MEDS: ZOLPIDEM TARTRATE 5MG TABLET PO PRN (01:01)
[2018-08-14] MEDS: HYDROMORPHONE HCL/PF 2MG/ML CPJ IV PRN ×2 (01:01→07:22)
[2018-08-14] MEDS: IPRATROPIUM/ALBUTEROL 0.5-3(2.5)MG/3ML NEB HHN SCH ×3 (04:32→12:25)
[2018-08-14] MEDS: HYDRALAZINE HCL 25MG TABLET PO SCH ×2 (05:25→13:43)
[2018-08-14 06:06] LABS: BASOPHILS % 0.4 % (0.0-2.0); EOSINOPHILS % 0.9 % (0.0-5.0); HEMATOCRIT. 29.7 % (36.0-48.0); HEMOGLOBIN. 9.5 g/dL (12.0-16.0); MEAN CORPUSCULAR HEMOGLOBIN 26.6 pg (28.0-32.0); MEAN PLATELET VOLUME 8.3 fl (7.4-10.4); MONOCYTES % 14.4 % (2.0-8.0); NEUTROPHILS % 72.3 % (40.0-76.0); PLATELET 227 x1000/uL (130-400); RED BLOOD CELL COUNT 3.58 mill/uL (4.2-5.4); RED CELL DISTRIBUTION WIDTH 19.1 % (11.6-14.6)
[2018-08-14] MEDS: LEVOTHYROXINE SODIUM 100MCG TABLET PO SCH (06:39)
[2018-08-14] MEDS: BLOOD SUGAR DIAGNOSTIC STRIP TEST SCH ×2 (07:30→13:02)
[2018-08-14 07:36] LABS: CHLORIDE 100 mEq/L (98-107)
[2018-08-14 07:51] LABS: PHOSPHORUS 3.4 mg/dL (2.5-4.9)
[2018-08-14] MEDS: INSULIN LISPRO 100 UNITS/ML SUBCUT SCH ×2 (08:00→13:00)
[2018-08-14] MEDS: LISINOPRIL 20MG TABLET PO SCH (09:50)
[2018-08-14] MEDS: FUROSEMIDE 40MG/4ML VIAL IVP SCH (09:50)
[2018-08-14] MEDS: APIXABAN 5 MG TABLET PO SCH (09:50)
[2018-08-14] MEDS: MEROPENEM 1,000 MG in SODIUM CHLORIDE 0.9% 100 ML IV SCH (09:50)
[2018-08-14] MEDS: FAMOTIDINE 20MG TABLET PO SCH (09:50)
[2018-08-14] MEDS: DOCUSATE SODIUM 250MG CAPSULE PO SCH (09:50)
[2018-08-14] MEDS: SPIRONOLACTONE 25MG TABLET PO SCH (09:50)
[2018-08-14] MEDS: IRON SUCROSE COMPLEX 100 MG/5 ML ML IV SCH (09:50)
[2018-08-14] MEDS: BRIMONIDINE 0.2% OPHTH DROPS 5ML BOTHEYE SCH (09:51)
[2018-08-14] MEDS: CARVEDILOL 6.25 MG TABLET PO SCH (09:51)
[2018-08-14] MEDS: CITALOPRAM HYDROBROMIDE 10MG TABLET PO SCH (10:02)
[2018-08-14] MEDS: HYDROCODONE/ACETAMINOPHEN 5/325MG TABLET PO PRN (13:45)
== END 2018-08-14 16:14 | disposition home health service (06) | DRG 871 ==
LOC: ER 07:19 → 5EST 08:50 → EDBEDREQ 08:56 → ENRESERV 09:08 → CANRESERV 09:08 → ENRESERV 09:50
PROVIDERS: ADMIT Internal Medicine Geriatric Medicine; ATTEND Internal Medicine Geriatric Medicine
PROC: 5A09357 Assistance with Respiratory Ventilation, Less than 24 Consecutive Hours, Continuous Positive Airway Pressure (ICD-10-PCS; principal; 2018-08-09)
PROC: 5A09357 Assistance with Respiratory Ventilation, Less than 24 Consecutive Hours, Continuous Positive Airway Pressure (ICD-10-PCS; 2018-08-10)
PROC: 5A09357 Assistance with Respiratory Ventilation, Less than 24 Consecutive Hours, Continuous Positive Airway Pressure (ICD-10-PCS; 2018-08-11)
PROC: 5A09357 Assistance with Respiratory Ventilation, Less than 24 Consecutive Hours, Continuous Positive Airway Pressure (ICD-10-PCS; 2018-08-12)
DX: A41.9 Sepsis, unspecified organism (principal); I50.43 Acute on chronic combined systolic (congestive) and diastolic (congestive) heart failure; J96.20 Acute and chronic respiratory failure, unspecified whether with hypoxia or hypercapnia; I13.0 Hypertensive heart and chronic kidney disease with heart failure and stage 1 through stage 4 chronic kidney disease, or unspecified chronic kidney disease; E44.0 Moderate protein-calorie malnutrition; N39.0 Urinary tract infection, site not specified; N17.9 Acute kidney failure, unspecified; E87.1 Hypo-osmolality and hyponatremia; Z68.41 Body mass index [BMI] 40.0-44.9, adult; R65.10 Systemic inflammatory response syndrome (SIRS) of non-infectious origin without acute organ dysfunction; I48.2 Chronic atrial fibrillation; D63.8 Anemia in other chronic diseases classified elsewhere; E11.59 Type 2 diabetes mellitus with other circulatory complications; I27.29 Other secondary pulmonary hypertension; E66.01 Morbid (severe) obesity due to excess calories; G47.33 Obstructive sleep apnea (adult) (pediatric); E11.22 Type 2 diabetes mellitus with diabetic chronic kidney disease; N18.3 Chronic kidney disease, stage 3 (moderate); D50.9 Iron deficiency anemia, unspecified; E03.9 Hypothyroidism, unspecified; E11.319 Type 2 diabetes mellitus with unspecified diabetic retinopathy without macular edema; E11.40 Type 2 diabetes mellitus with diabetic neuropathy, unspecified; E78.5 Hyperlipidemia, unspecified; B96.89 Other specified bacterial agents as the cause of diseases classified elsewhere; R07.81 Pleurodynia; F41.9 Anxiety disorder, unspecified; M19.90 Unspecified osteoarthritis, unspecified site; H40.9 Unspecified glaucoma; I87.2 Venous insufficiency (chronic) (peripheral); K44.9 Diaphragmatic hernia without obstruction or gangrene; Z79.01 Long term (current) use of anticoagulants; Z79.4 Long term (current) use of insulin; Z79.899 Other long term (current) drug therapy; Z86.010 Personal history of colon polyps; Z86.14 Personal history of Methicillin resistant Staphylococcus aureus infection; Z86.19 Personal history of other infectious and parasitic diseases; Z87.891 Personal history of nicotine dependence; Z91.19 Patient's noncompliance with other medical treatment and regimen; Z99.81 Dependence on supplemental oxygen
CPT/HCPCS: 36415; 36600; 71045; 73030; 80048; 80305; 82375; 82553; 82728; 82805; 82962; 83036; 83540; 83550; 83735; 83880; 84100; 84439; 84443; 84484; 84550; 87077; 87186; 87804; 93005; 94640; 94660; 96365; 96375; 97162; 99285; J0696; J1170; J1815; J1940; J2060; J2185; J2405; J2930; J3475; J7040; J7050; J7060; J7611; J7620; J7626

== ENCOUNTER 2019-05-29 14:23 | Inpatient (IN) | payer MEDICARE, MEDICAID ==
[~2019-05-29] VITALS: Ht 165.1 cm; Wt 117.9 kg
[~2019-05-29 14:23] MED LIST changes: -ALBU6.7H INH; +ALBU6.7H11 INH; +OMEP40CA12 PO; -OMEP40CA34 PO
[2019-05-29] MEDS ORDERED: IPRATROPIUM BROMIDE (0.02%) 0.5MG/2.5ML NEB HHN STA (14:29)
[2019-05-29] MEDS ORDERED: METHYLPREDNISOLONE SOD SUCC 125 MG/2 ML VIAL IV STA (14:29)
[2019-05-29] MEDS ORDERED: MAGNESIUM 2 G PREMIX 50 ML IV ONE (14:30)
[2019-05-29] MEDS: ALBUTEROL (0.083%) 2.5MG/3ML NEB HHN SCH ×3 (14:30→15:30)
[2019-05-29 15:03] LABS: BASOPHILS % 0.6 % (0.0-2.0); EOSINOPHILS % 2.8 % (0.0-5.0); HEMATOCRIT. 27.8 % (36.0-48.0); HEMOGLOBIN. 8.6 g/dL (12.0-16.0); LYMPHOCYTES % 13.5 % (20.0-50.0); MEAN CORPUSCULAR VOLUME 81.2 fL (81.0-99.0); MEAN PLATELET VOLUME 8.1 fl (7.4-10.4); MONOCYTES % 11.6 % (2.0-8.0); NEUTROPHILS % 71.5 % (40.0-76.0); PLATELET 265 x1000/uL (130-400); RED BLOOD CELL COUNT 3.43 mill/uL (4.2-5.4); RED CELL DISTRIBUTION WIDTH 20.1 % (11.6-14.6)
[2019-05-29 15:07] LABS: INR 1.1; PROTHROMBIN TIME 11.6 sec (9.6-11.0)
[2019-05-29 15:30] LABS: CHLORIDE 104 mEq/L (98-107)
[2019-05-29] MEDS ORDERED: FUROSEMIDE 40MG/4ML VIAL IVP ONE (16:15)
[2019-05-29] MEDS ORDERED: LEVOFLOXACIN 750MG PREMIX 150 ML IV ONE (16:15)
[2019-05-29] MEDS ORDERED: HYDROCODONE/ACETAMINOPHEN 5/325MG TABLET PO ONE (16:45)
[2019-05-29] MEDS ORDERED: DEXTROSE 50% WATER 50ML SYRINGE IV PRN (19:15)
[2019-05-29] MEDS: FUROSEMIDE 40MG/4ML VIAL IVP SCH (19:57)
[2019-05-29 20:00] VITALS: BP 129/57
[2019-05-29 20:27] VITALS: BP 133/53
[2019-05-29] MEDS: IPRATROPIUM/ALBUTEROL 0.5-3(2.5)MG/3ML NEB HHN SCH (20:32)
[2019-05-29] MEDS: INSULIN LISPRO 100 UNITS/ML SUBCUT SCH (21:19)
[2019-05-29] MEDS: BLOOD SUGAR DIAGNOSTIC STRIP TEST SCH (21:19)
[2019-05-29] MEDS ORDERED: MAGNESIUM/ALUMINUM HYDROXIDE/SIMETHICONE 30ML UDC PO PRN (21:30)
[2019-05-29] MEDS ORDERED: ACETAMINOPHEN 325MG TABLET PO PRN (21:30)
[2019-05-29] MEDS ORDERED: DOCUSATE SODIUM 100MG CAPSULE PO PRN (21:30)
[2019-05-29] MEDS ORDERED: IPRATROPIUM/ALBUTEROL 0.5-3(2.5)MG/3ML NEB HHN SCH (21:30)
[2019-05-29] MEDS ORDERED: CLONIDINE 0.1MG TABLET PO PRN (21:30)
[2019-05-29] MEDS ORDERED: ONDANSETRON HCL 4MG/2ML INJ IV PRN (21:30)
[2019-05-29 22:00] VITALS: BP 118/61
[2019-05-29] MEDS: SILDENAFIL CITRATE 20MG TABLET PO SCH (23:01)
[2019-05-29] MEDS: ZOLPIDEM TARTRATE 5MG TABLET PO PRN (23:02)
[2019-05-29 23:27] LABS: HEMATOCRIT. 29.3 % (36.0-48.0); HEMOGLOBIN. 8.8 g/dL (12.0-16.0); MEAN CORPUSCULAR HEMOGLOBIN 24.7 pg (28.0-32.0); MEAN CORPUSCULAR VOLUME 82.3 fL (81.0-99.0); MEAN PLATELET VOLUME 8.3 fl (7.4-10.4); PLATELET 284 x1000/uL (130-400); RED BLOOD CELL COUNT 3.56 mill/uL (4.2-5.4); RED CELL DISTRIBUTION WIDTH 20.2 % (11.6-14.6)
[2019-05-29 23:39] LABS: CREATINE KINASE MB FRACTION 1.3 ng/mL (0.5-3.6)
[2019-05-30] VITALS (12 sets, daily range): BP systolic 95–138; BP diastolic 45–74
[2019-05-30 00:07] LABS: PLATELET ESTIMATE NORMAL
[2019-05-30] MEDS: IPRATROPIUM/ALBUTEROL 0.5-3(2.5)MG/3ML NEB HHN SCH ×5 (00:27→20:05)
[2019-05-30] MEDS: BLOOD SUGAR DIAGNOSTIC STRIP TEST SCH ×4 (06:03→21:00)
[2019-05-30] MEDS: FUROSEMIDE 40MG/4ML VIAL IVP SCH ×2 (06:03→18:22)
[2019-05-30] MEDS: SILDENAFIL CITRATE 20MG TABLET PO SCH ×3 (06:03→21:38)
[2019-05-30] MEDS: INSULIN LISPRO 100 UNITS/ML SUBCUT SCH ×4 (07:20→21:00)
[2019-05-30 07:30] LABS: CHLORIDE 104 mEq/L (98-107)
[2019-05-30 07:48] LABS: CREATINE KINASE MB FRACTION 1.4 ng/mL (0.5-3.6)
[2019-05-30 08:45] LABS: CLARITY URINE CLEAR (CLEAR); COLOR URINE YELLOW (YELLOW); KETONES URINE NEGATIVE (NEGATIVE); LEUKOCYTE ESTERASE URINE NEGATIVE (NEGATIVE); NITRITE URINE NEGATIVE (NEGATIVE); OCCULT BLOOD URINE NEGATIVE (NEGATIVE); PROTEIN URINE NEGATIVE (NEGATIVE); UROBILINOGEN URINE 0.2 E.U./dL (0.2-1.0)
[2019-05-30] MEDS ORDERED: FERROUS SULFATE 325MG TABLET PO SCH (09:00)
[2019-05-30 09:04] LABS: T4 FREE 1.06 ng/dL (0.76-1.46)
[2019-05-30] MEDS: DOCUSATE SODIUM 250MG CAPSULE PO SCH (09:58)
[2019-05-30] MEDS: MIDODRINE HCL 2.5MG TABLET PO SCH ×3 (09:58→17:20)
[2019-05-30] MEDS: APIXABAN 5 MG TABLET PO SCH ×2 (09:59→17:20)
[2019-05-30] MEDS: SPIRONOLACTONE 25MG TABLET PO SCH (09:59)
[2019-05-30] MEDS: CITALOPRAM HYDROBROMIDE 10MG TABLET PO SCH (09:59)
[2019-05-30] MEDS: HYDROCODONE/ACETAMINOPHEN 5/325MG TABLET PO PRN ×2 (10:05→16:26)
[2019-05-30] MEDS: BRIMONIDINE 0.2% OPHTH DROPS 5ML BOTHEYE SCH (12:39)
[2019-05-30] MEDS: TIMOLOL MALEATE 0.5% OPHTH DROPS 5ML EACHEYE SCH (12:39)
[2019-05-30] MEDS ORDERED: BUDESONIDE 0.5MG/2ML NEB ONE (12:49)
[2019-05-30] MEDS: EPOETIN ALFA 10000UNITS/ML VIAL SUBCUT SCH (21:38)
[2019-05-30] MEDS: ZOLPIDEM TARTRATE 5MG TABLET PO PRN (21:48)
[2019-05-31] VITALS (12 sets, daily range): BP systolic 93–124; BP diastolic 42–76
[2019-05-31] MEDS: IPRATROPIUM/ALBUTEROL 0.5-3(2.5)MG/3ML NEB HHN SCH ×6 (00:14→20:53)
[2019-05-31] MEDS: FUROSEMIDE 40MG/4ML VIAL IVP SCH ×2 (05:49→17:55)
[2019-05-31] MEDS: BLOOD SUGAR DIAGNOSTIC STRIP TEST SCH ×4 (05:51→21:00)
[2019-05-31] MEDS: SILDENAFIL CITRATE 20MG TABLET PO SCH ×3 (05:51→21:57)
[2019-05-31 06:40] LABS: CHLORIDE 103 mEq/L (98-107)
[2019-05-31 06:47] LABS: BASOPHILS % 0.4 % (0.0-2.0); EOSINOPHILS % 0.7 % (0.0-5.0); HEMATOCRIT. 24.9 % (36.0-48.0); HEMOGLOBIN. 7.9 g/dL (12.0-16.0); LYMPHOCYTES % 19.8 % (20.0-50.0); MEAN CORPUSCULAR HEMOGLOBIN 25.5 pg (28.0-32.0); MEAN CORPUSCULAR VOLUME 80.6 fL (81.0-99.0); MEAN PLATELET VOLUME 8.1 fl (7.4-10.4); MONOCYTES % 11.3 % (2.0-8.0); NEUTROPHILS % 67.8 % (40.0-76.0); PLATELET 288 x1000/uL (130-400); RED BLOOD CELL COUNT 3.09 mill/uL (4.2-5.4); RED CELL DISTRIBUTION WIDTH 20.2 % (11.6-14.6)
[2019-05-31] MEDS: INSULIN LISPRO 100 UNITS/ML SUBCUT SCH ×4 (07:20→21:00)
[2019-05-31] MEDS: CITALOPRAM HYDROBROMIDE 10MG TABLET PO SCH (08:26)
[2019-05-31] MEDS: MIDODRINE HCL 2.5MG TABLET PO SCH ×3 (08:26→17:55)
[2019-05-31] MEDS: FERROUS SULFATE 325MG TABLET PO SCH ×2 (08:26→17:55)
[2019-05-31] MEDS: DOCUSATE SODIUM 250MG CAPSULE PO SCH (08:26)
[2019-05-31] MEDS: APIXABAN 5 MG TABLET PO SCH ×2 (08:26→17:55)
[2019-05-31] MEDS: SPIRONOLACTONE 25MG TABLET PO SCH (08:27)
[2019-05-31] MEDS: BRIMONIDINE 0.2% OPHTH DROPS 5ML BOTHEYE SCH (08:27)
[2019-05-31] MEDS: TIMOLOL MALEATE 0.5% OPHTH DROPS 5ML EACHEYE SCH (08:27)
[2019-05-31] MEDS ORDERED: LORAZEPAM 0.5MG TABLET PO PRN (11:30)
[2019-05-31] MEDS: HYDROCODONE/ACETAMINOPHEN 5/325MG TABLET PO PRN (12:02)
[2019-05-31 12:20] LABS: HEMATOCRIT 26.3 % (36.0-48.0); HEMOGLOBIN 8.2 g/dL (12.0-16.0)
[2019-05-31 12:43] LABS: TOTAL IRON BINDING CAPACITY 328 ug/dL (250-450)
[2019-05-31] MEDS: LETAIRIS (AMBRISENTAN) 10MG TABLET PO SCH (17:56)
[2019-05-31] MEDS: ALPRAZOLAM 0.5 MG TABLET PO PRN (19:57)
[2019-06-01] VITALS (16 sets, daily range): BP systolic 98–132; BP diastolic 6–69
[2019-06-01] MEDS: IPRATROPIUM/ALBUTEROL 0.5-3(2.5)MG/3ML NEB HHN SCH ×6 (00:09→20:53)
[2019-06-01] MEDS: BLOOD SUGAR DIAGNOSTIC STRIP TEST SCH ×4 (06:50→21:00)
[2019-06-01] MEDS: SILDENAFIL CITRATE 20MG TABLET PO SCH ×3 (06:53→21:00)
[2019-06-01] MEDS: FUROSEMIDE 40MG/4ML VIAL IVP SCH ×2 (06:53→17:36)
[2019-06-01] MEDS: INSULIN LISPRO 100 UNITS/ML SUBCUT SCH ×4 (07:20→21:00)
[2019-06-01 07:39] LABS: BASOPHILS % 0.1 % (0.0-2.0); CHLORIDE 105 mEq/L (98-107); EOSINOPHILS % 1.5 % (0.0-5.0); HEMATOCRIT. 25.4 % (36.0-48.0); LYMPHOCYTES % 18.6 % (20.0-50.0); MEAN CORPUSCULAR HEMOGLOBIN 25.2 pg (28.0-32.0); MEAN CORPUSCULAR VOLUME 79.7 fL (81.0-99.0); MEAN PLATELET VOLUME 7.7 fl (7.4-10.4); MONOCYTES % 12.9 % (2.0-8.0); NEUTROPHILS % 66.9 % (40.0-76.0); PLATELET 305 x1000/uL (130-400); RED BLOOD CELL COUNT 3.19 mill/uL (4.2-5.4); RED CELL DISTRIBUTION WIDTH 19.7 % (11.6-14.6)
[2019-06-01] MEDS: SPIRONOLACTONE 25MG TABLET PO SCH (08:02)
[2019-06-01] MEDS: ALPRAZOLAM 0.5 MG TABLET PO PRN ×2 (08:02→12:30)
[2019-06-01] MEDS: FERROUS SULFATE 325MG TABLET PO SCH ×2 (08:02→17:36)
[2019-06-01] MEDS: APIXABAN 5 MG TABLET PO SCH ×2 (08:03→17:36)
[2019-06-01] MEDS: HYDROCODONE/ACETAMINOPHEN 5/325MG TABLET PO PRN ×2 (08:03→15:39)
[2019-06-01] MEDS: MIDODRINE HCL 2.5MG TABLET PO SCH ×3 (08:04→17:36)
[2019-06-01] MEDS: CITALOPRAM HYDROBROMIDE 10MG TABLET PO SCH (08:04)
[2019-06-01] MEDS: BRIMONIDINE 0.2% OPHTH DROPS 5ML BOTHEYE SCH (08:06)
[2019-06-01] MEDS: DOCUSATE SODIUM 250MG CAPSULE PO SCH (08:06)
[2019-06-01] MEDS: TIMOLOL MALEATE 0.5% OPHTH DROPS 5ML EACHEYE SCH (08:06)
[2019-06-01] MEDS: LETAIRIS (AMBRISENTAN) 10MG TABLET PO SCH (08:07)
[2019-06-01] MEDS: EPOETIN ALFA 10000UNITS/ML VIAL SUBCUT SCH (21:00)
[2019-06-01] MEDS: ZOLPIDEM TARTRATE 5MG TABLET PO PRN (21:10)
[2019-06-02] VITALS (10 sets, daily range): BP systolic 98–118; BP diastolic 41–66
[2019-06-02] MEDS: IPRATROPIUM/ALBUTEROL 0.5-3(2.5)MG/3ML NEB HHN SCH ×5 (01:11→17:07)
[2019-06-02] MEDS: HYDROCODONE/ACETAMINOPHEN 5/325MG TABLET PO PRN ×2 (01:32→13:58)
[2019-06-02] MEDS: FUROSEMIDE 40MG/4ML VIAL IVP SCH ×2 (06:24→17:30)
[2019-06-02] MEDS: BLOOD SUGAR DIAGNOSTIC STRIP TEST SCH ×3 (06:25→17:23)
[2019-06-02] MEDS: SILDENAFIL CITRATE 20MG TABLET PO SCH ×2 (06:25→13:51)
[2019-06-02 07:11] LABS: HEMATOCRIT. 26.3 % (36.0-48.0); HEMOGLOBIN. 8.4 g/dL (12.0-16.0); MEAN CORPUSCULAR HEMOGLOBIN 25.3 pg (28.0-32.0); MEAN CORPUSCULAR VOLUME 79.4 fL (81.0-99.0); MEAN PLATELET VOLUME 7.9 fl (7.4-10.4); PLATELET 296 x1000/uL (130-400); RED BLOOD CELL COUNT 3.32 mill/uL (4.2-5.4)
[2019-06-02] MEDS: INSULIN LISPRO 100 UNITS/ML SUBCUT SCH ×4 (07:20→16:51)
[2019-06-02 07:27] LABS: CHLORIDE 105 mEq/L (98-107)
[2019-06-02] MEDS: BRIMONIDINE 0.2% OPHTH DROPS 5ML BOTHEYE SCH (08:00)
[2019-06-02] MEDS: TIMOLOL MALEATE 0.5% OPHTH DROPS 5ML EACHEYE SCH (08:01)
[2019-06-02] MEDS: SPIRONOLACTONE 25MG TABLET PO SCH (08:02)
[2019-06-02] MEDS: CITALOPRAM HYDROBROMIDE 10MG TABLET PO SCH (08:02)
[2019-06-02] MEDS: FERROUS SULFATE 325MG TABLET PO SCH ×2 (08:02→16:46)
[2019-06-02] MEDS: MIDODRINE HCL 2.5MG TABLET PO SCH ×3 (08:03→16:46)
[2019-06-02] MEDS: APIXABAN 5 MG TABLET PO SCH ×2 (08:03→16:46)
[2019-06-02] MEDS: ALPRAZOLAM 0.5 MG TABLET PO PRN (08:12)
[2019-06-02] MEDS: LETAIRIS (AMBRISENTAN) 10MG TABLET PO SCH (08:13)
[2019-06-02] MEDS: DOCUSATE SODIUM 250MG CAPSULE PO SCH (08:14)
[2019-06-03 14:08] LABS: PLATELET ESTIMATE NORMAL
== END 2019-06-02 18:30 | DRG 871 ==
LOC: ER 14:34 → ENRESERV 17:38 → 3WST 18:57
PROVIDERS: ADMIT Internal Medicine Geriatric Medicine; ATTEND Internal Medicine Geriatric Medicine
PROC: 5A09357 Assistance with Respiratory Ventilation, Less than 24 Consecutive Hours, Continuous Positive Airway Pressure (ICD-10-PCS; 2019-05-29)
PROC: 30233N1 Transfusion of Nonautologous Red Blood Cells into Peripheral Vein, Percutaneous Approach (ICD-10-PCS; principal; 2019-06-01)
DX: A41.51 Sepsis due to Escherichia coli [E. coli] (principal); J96.20 Acute and chronic respiratory failure, unspecified whether with hypoxia or hypercapnia; I50.43 Acute on chronic combined systolic (congestive) and diastolic (congestive) heart failure; I13.0 Hypertensive heart and chronic kidney disease with heart failure and stage 1 through stage 4 chronic kidney disease, or unspecified chronic kidney disease; N39.0 Urinary tract infection, site not specified; Z16.12 Extended spectrum beta lactamase (ESBL) resistance; E44.0 Moderate protein-calorie malnutrition; J44.1 Chronic obstructive pulmonary disease with (acute) exacerbation; Z68.41 Body mass index [BMI] 40.0-44.9, adult; N61.0 Mastitis without abscess; I87.2 Venous insufficiency (chronic) (peripheral); E11.42 Type 2 diabetes mellitus with diabetic polyneuropathy; E11.51 Type 2 diabetes mellitus with diabetic peripheral angiopathy without gangrene; I27.29 Other secondary pulmonary hypertension; D63.1 Anemia in chronic kidney disease; E03.9 Hypothyroidism, unspecified; E11.22 Type 2 diabetes mellitus with diabetic chronic kidney disease; F32.9 Major depressive disorder, single episode, unspecified; F41.1 Generalized anxiety disorder; G47.33 Obstructive sleep apnea (adult) (pediatric); G89.4 Chronic pain syndrome; K44.9 Diaphragmatic hernia without obstruction or gangrene; G90.8 Other disorders of autonomic nervous system; N18.3 Chronic kidney disease, stage 3 (moderate); E66.01 Morbid (severe) obesity due to excess calories; I07.1 Rheumatic tricuspid insufficiency; I48.0 Paroxysmal atrial fibrillation; K22.2 Esophageal obstruction; K57.30 Diverticulosis of large intestine without perforation or abscess without bleeding; Z79.01 Long term (current) use of anticoagulants; Z79.4 Long term (current) use of insulin; Z79.899 Other long term (current) drug therapy; Z86.19 Personal history of other infectious and parasitic diseases; Z87.891 Personal history of nicotine dependence; Z99.81 Dependence on supplemental oxygen
CPT/HCPCS: 36415; 71045; 76642; 80053; 81003; 82553; 82962; 83036; 83540; 83550; 83605; 83735; 83880; 84439; 84443; 84484; 85014; 85018; 85025; 86850; 86900; 86920; 93005; 93306; 94640; 94660; 97116; 97162; 99291; J0885; J1815; J1940; J1956; J2405; J2930; J3475; J7611; J7620; J7626; P9016